=== PATIENT | male | born 1995 | race African-American/Black ===

== ENCOUNTER 2019-08-19 02:39 | Inpatient (IN) | payer OTHER ==
--- NOTE | 2019-08-19 03:04 | PDOC ---
Attending Attestation - Resident Resident Name: Jamie Vaughan - ED Attending Attestation I have performed the following: I have examined & evaluated the patient, The case was reviewed & discussed with the resident, I agree w/resident's findings & plan - HPI HPI: 08/19/19 04:48 see resident hpi - Physicial Exam PE: 08/19/19 05:06 agree with resident exam - Critical Care Time Total Critical Care Time: 70 Critical Care Statement: The care of this patient involved high complexity decision making to prevent further life threatening deterioration of the patient 's condition and/or to evaluate & treat vital organ system(s) failure or risk of failure. - Medical Decision Making 08/19/19 05:06 24-year-old male with altered mental status Labs are consistent with diabetic ketoacidosis with severely elevated blood sugar of greater than 1600 IV fluids, insulin therapy initiated in the emergency department Patient will require ICU admission for further management
[2019-08-19] MEDS ORDERED: SODIUM CHLORIDE 1,000 ML IV STA ×5 (04:22→15:17)
[2019-08-19 04:23] LABS: BASO % 0.2 % (0-2.0); HEMATOCRIT 52.8 % (35.4-49); HEMOGLOBIN 14.5 GM/dL (11.7-16.9); LYMPH % 3.7 % (8-40); MCH 30.9 pg (25.7-33.7); MCHC 27.4 g/dl (32.0-35.9); MEAN CELL VOLUME 112.9 fl (80-96); MEAN PLT VOLUME 12.3 fl (7.5-11.1); MONO % 8.9 % (3.8-10.2); NEUT % 87.2 % (42.8-82.8); PLATELET COUNT 156 K/MM3 (134-434); RBC 4.68 M/mm3 (4.00-5.60); RDW 17.4 % (11.9-15.9); WHITE BLOOD COUNT 17.7 K/mm3 (4.0-10.0)
[2019-08-19 04:26] LABS: ARTERIAL BLD GAS O2 SATURATION 94.5 % (95-98); ARTERIAL BLOOD GAS BASE EXCESS -16.8 meq/l (-2-2); ARTERIAL BLOOD GAS PCO2 33.6 mmHg (35-45); ARTERIAL BLOOD GAS PO2 80.7 mmHg (80-100)
[2019-08-19 04:28] LABS: CARBOXYHEMOGLOBIN 1.5 % (0-2)
--- NOTE | 2019-08-19 04:31 | PDOC ---
History of Present Illness - General Chief Complaint: Syncope/Near Syncope Stated Complaint: SYNCOPE Time Seen by Provider: 08/19/19 03:03 History Source: Family Exam Limitations: Clinical Condition - History of Present Illness Initial Comments: 08/19/19 04:23 Patient is a 24M with history of down's syndrome here today complaining of altered mental status. Patient is unable to give history, but at baseline normally would be able to. Patient's mother at bedside reports that he has been vomiting clear liquids for the past two days, but has not been complaining of abdominal pain. Denies fevers, chills. Denies reports of chest pain and shortness of breath. Patient's mother took him to [facility] this evening after he syncopized while getting out of bed. No sick contacts. Up to date on vaccinations. No prior hospitalizations. Mom reports that his labs were normal and he was discharged after having normal labs and receiving 1L NS. Patient was unable to assist himself from wheelchair to bed upon arrival. Past History - Past Medical History Allergies/Adverse Reactions: Allergies Allergy/AdvReac Type Severity Reaction Status Date / Time No Known Allergies Allergy Verified 08/19/19 03:07 - Psycho Social/Smoking Cessation Hx Smoking History: Never smoked Hx Alcohol Use: No Drug/Substance Use Hx: No Review of Systems - Review of Systems Able to Perform ROS?: No (2/2 clinical condition) *Physical Exam - Vital Signs Last Vital Signs Temp Pulse Resp BP Pulse Ox 98.8 F 111 H 15 116/95 97 08/19/19 02:39 08/19/19 02:39 08/19/19 02:39 08/19/19 02:39 08/19/19 02:39 - Physical Exam Comments: 08/19/19 04:32 GENERAL: Eyes closed, responds to harsh noxious stimulus only, non-communicative , obese HEAD: No signs of trauma, normocephalic, atraumatic EYES: PERRLA, EOMI, sclera anicteric, conjunctiva clear ENT: Auricles normal inspection, dry mucosa NECK: Normal ROM, supple, no reaction with neck flexion LUNGS: No distress, clear to auscultation bilaterally HEART: Tachycardic, regular ABDOMEN: Soft, nontender, normoactive bowel sounds. No guarding, no rebound. No masses EXTREMITIES: Normal inspection, Normal range of motion, no edema. No clubbing or cyanosis. NEUROLOGICAL: Cranial nerves II through XII grossly intact. Moves all extremities to pain SKIN: Warm, Dry, normal turgor, no rashes or lesions noted. ED Treatment Course - LABORATORY CBC & Chemistry Diagram: 08/19/19 04:05 08/19/19 04:05 - ADDITIONAL ORDERS Additional order review: Laboratory Results 08/19/19 04:05 Anticoagulation Therapy No Result Required. O2 Delivery Device No Result Required. Oxygen Flow Rate No Result Required. Vent Mode No Result Required. Vent Rate No Result Required. Mechanical Rate No Result Required. Pressure Support Vent No Result Required. - RADIOLOGY Radiology Studies Ordered: Category Date Time Status HEAD CT WITHOUT CONTRAST [CT] Stat CT Scan 08/19/19 02:58 Ordered CHEST X-RAY PORTABLE* [RAD] Stat Radiology 08/19/19 02:58 Ordered Medical Decision Making - Medical Decision Making 08/19/19 04:42 Patient is 24M with history of Down's Syndrome here today with AMS. Vitals notable for tachycardia. Fingerstick high, suspect DKA and new onset diabetes. Will do broad workup to rule out infectious etiology. 08/19/19 05:44 CBC shows evidence of hemoconcentration, leukocytosis, macrocytosis CMP shows gap, LIYA, Na corrects to ~148, K 6.5, glucose 1600 ABG shows metabolic acidosis Case d/w Dr Marte, patient accepted to ICU but no beds available. Case d/w Dr Clark accepted to medicine. CXR pending. UA/UC pending. Will place adler. EKG shows sinus tachycardia with rate of 120. No st elevations/depressions. Normal axis. No significant t wave abnormalities. Poor baseline in II. Discharge - Discharge Information Problems reviewed: Yes Clinical Impression/Diagnosis: DKA (diabetic ketoacidoses) Condition: Critical - Admission Yes - Follow up/Referral - Patient Discharge Instructions - Post Discharge Activity
[2019-08-19 04:35] LABS: ALLENS TEST POSITIVE
[2019-08-19 04:37] LABS: ARTERIAL BLOOD GAS pH 7.15 (7.35-7.45)
[2019-08-19 04:46] LABS: INR 1.2 (0.83-1.09); PROTHROMBIN TIME (PATIENT) 14.2 SEC (9.7-13.0)
[2019-08-19] MEDS ORDERED: INSULIN REGULAR HUMAN 100 UNITS/ML *VIAL IVPUSH ONE ×3 (04:47→20:03)
[2019-08-19 04:55] LABS: ALBUMIN 3.4 g/dl (3.4-5.0); BILIRUBIN,TOTAL 0.5 mg/dL (0.2-1); BLOOD UREA NITROGEN 87.3 mg/dL (7-18); CREATININE 6.8 mg/dL (0.55-1.3)
[2019-08-19 05:00] LABS: POTASSIUM 6.5 mmol/L (3.5-5.1)
[2019-08-19] MEDS ORDERED: INSULIN REGULAR 100 UNITS in SODIUM CHLORIDE 99 ML IVPB SCH ×2 (05:00→15:22)
--- NOTE | 2019-08-19 05:36 | CONSULT ---
Consultation: REQUESTING PROVIDER: ED team CONSULT REQUEST: We have been asked to medically evaluate this patient for DKA. HISTORY OF PRESENT ILLNESS: This is a 24 y/o gentleman w/ a pmh of downs syndrome who presented this AM with altered mental status. Patient is unable to provide a history, which does not depict his appropriate baseline mental status. Patient's mother per telephone conversation was able to provide a history, that he has been vomiting clear liquids for the past few days, but has not been complaining of abdominal pain. Pt lives with at home with his mother. Denies fevers, chills associated with this nbnb emesis or recent sick contacts. Denies any reports of chest pain, shortness of breath, cough, dizziness, or feeling of the room spinning around him. Patient's mother took him to [facility] this evening after he had syncopized while getting out of bed, per mom all labs were normal and pt was sent home. Patient has not been around any sick contacts and is up to date on vaccinations. Patient was hospitalized for PNA when he was 5, however pt has never been intubated. No meds Allergies- NKDA Surgical Hx- none Fam Hx- DM, HTN- Grandma Social Hx- T: none A- none D- none Medical Hx- Downs syndrome EKG- sinus rythym rate of 120. REVIEW OF SYSTEMS: negative except above in HPI PHYSICAL EXAMINATION Vital Signs - 24 hr 08/19/19 02:39 Temperature 98.8 F Pulse Rate 111 H Respiratory 15 Rate Blood Pressure 116/95 O2 Sat by Pulse 97 Oximetry (%) GENERAL: lethargic, arousable only to noxious stimuli HEAD: Normocephalic, atraumatic EARS, NOSE, THROAT: Dry mucous membranes. LUNGS: Breath sounds equal, clear to auscultation bilaterally. No wheezes, and no crackles. No accessory muscle use. HEART: tachycardic and regular rhythm, normal S1 and S2 without murmur, rub or gallop. ABDOMEN: Soft, nontender, not distended, hyperactive bowel sounds, no guarding, no rebound, no masses. LOWER EXTREMITIES: warm, well-perfused. No calf tenderness. No peripheral edema. NEUROLOGICAL: lethargic SKIN: Warm, dry, decreased skin turgor Laboratory Results - last 24 hr 08/19/19 08/19/19 08/19/19 04:05 04:05 04:05 WBC RBC Hgb Hct MCV MCH MCHC RDW Plt Count MPV Absolute Neuts (auto) Neutrophils % Lymphocytes % Monocytes % Eosinophils % Basophils % Nucleated RBC % PT with INR INR PTT (Actin FS) 31.3 Anticoagulation Therapy No Result Required. Puncture Site Right radial ABG pH 7.15 L* ABG pCO2 at Pt Temp 33.6 L ABG pO2 at Pt Temp 80.7 ABG HCO3 11.3 L ABG O2 Sat (Measured) 94.5 L ABG O2 Content 19.2 ABG Base Excess -16.8 L Moisés Test Positive Carboxyhemoglobin 1.5 Methemoglobin < 1.0 O2 Delivery Device Room air Oxygen Flow Rate No Vent Mode No Result Required. Vent Rate No Result Required. Mechanical Rate No Result Required. Pressure Support Vent No Result Required. Sodium Potassium Chloride Carbon Dioxide Anion Gap BUN Creatinine Est GFR (CKD-EPI)AfAm Est GFR (CKD-EPI)NonAf POC Glucometer Random Glucose Lactic Acid Calcium Total Bilirubin AST ALT Alkaline Phosphatase Creatine Kinase Creatine Kinase Index CK-MB (CK-2) Troponin I Total Protein Albumin Acetaminophen 08/19/19 08/19/19 08/19/19 04:05 04:05 04:05 WBC 17.7 H RBC 4.68 Hgb 14.5 Hct 52.8 H MCV 112.9 H MCH 30.9 MCHC 27.4 L RDW 17.4 H Plt Count 156 MPV 12.3 H Absolute Neuts (auto) 15.5 H Neutrophils % 87.2 H Lymphocytes % 3.7 L Monocytes % 8.9 Eosinophils % 0.0 Basophils % 0.2 Nucleated RBC % 0 PT with INR INR PTT (Actin FS) Anticoagulation Therapy Puncture Site ABG pH ABG pCO2 at Pt Temp ABG pO2 at Pt Temp ABG HCO3 ABG O2 Sat (Measured) ABG O2 Content ABG Base Excess Moisés Test Carboxyhemoglobin Methemoglobin O2 Delivery Device Oxygen Flow Rate Vent Mode Vent Rate Mechanical Rate Pressure Support Vent Sodium 127 L Potassium 6.5 H* Chloride 88 L Carbon Dioxide 13 L Anion Gap 26 H BUN 87.3 H Creatinine 6.8 H Est GFR (CKD-EPI)AfAm 12.14 Est GFR (CKD-EPI)NonAf 10.48 POC Glucometer Random Glucose 1642 H* Lactic Acid 2.6 H* Calcium 8.0 L Total Bilirubin 0.5 AST 33 ALT 51 Alkaline Phosphatase 141 H Creatine Kinase Creatine Kinase Index CK-MB (CK-2) Troponin I Total Protein 8.0 Albumin 3.4 Acetaminophen 08/19/19 08/19/19 08/19/19 04:05 04:05 04:05 WBC RBC Hgb Hct MCV MCH MCHC RDW Plt Count MPV Absolute Neuts (auto) Neutrophils % Lymphocytes % Monocytes % Eosinophils % Basophils % Nucleated RBC % PT with INR 14.20 H INR 1.20 H PTT (Actin FS) Anticoagulation Therapy Puncture Site ABG pH ABG pCO2 at Pt Temp ABG pO2 at Pt Temp ABG HCO3 ABG O2 Sat (Measured) ABG O2 Content ABG Base Excess Moisés Test Carboxyhemoglobin Methemoglobin O2 Delivery Device Oxygen Flow Rate Vent Mode Vent Rate Mechanical Rate Pressure Support Vent Sodium Potassium Chloride Carbon Dioxide Anion Gap BUN Creatinine Est GFR (CKD-EPI)AfAm Est GFR (CKD-EPI)NonAf POC Glucometer Random Glucose Lactic Acid Calcium Total Bilirubin AST ALT Alkaline Phosphatase Creatine Kinase 379 H Creatine Kinase Index 0.5 CK-MB (CK-2) 2.0 Troponin I < 0.02 Total Protein Albumin Acetaminophen <2.0 08/19/19 08/19/19 04:42 05:22 WBC RBC Hgb Hct MCV MCH MCHC RDW Plt Count MPV Absolute Neuts (auto) Neutrophils % Lymphocytes % Monocytes % Eosinophils % Basophils % Nucleated RBC % PT with INR INR PTT (Actin FS) Anticoagulation Therapy Puncture Site ABG pH ABG pCO2 at Pt Temp ABG pO2 at Pt Temp ABG HCO3 ABG O2 Sat (Measured) ABG O2 Content ABG Base Excess Moisés Test Carboxyhemoglobin Methemoglobin O2 Delivery Device Oxygen Flow Rate Vent Mode Vent Rate Mechanical Rate Pressure Support Vent Sodium Potassium Chloride Carbon Dioxide Anion Gap BUN Creatinine Est GFR (CKD-EPI)AfAm Est GFR (CKD-EPI)NonAf POC Glucometer > 600 > 600 Random Glucose Lactic Acid Calcium Total Bilirubin AST ALT Alkaline Phosphatase Creatine Kinase Creatine Kinase Index CK-MB (CK-2) Troponin I Total Protein Albumin Acetaminophen Active Medications Generic Name Dose Route Start Last Admin Trade Name Freq PRN Reason Stop Dose Admin Insulin Human Regular 100 100 mls @ 12.42 mls/hr 08/19/19 05:00 units/ Sodium Chloride IVPB TITR GAUTAM Protocol 0.1 UNITS/KG/HR Sodium Chloride 1,000 mls @ 1,000 mls/hr 08/19/19 04:48 Normal Saline - IV 08/19/19 05:47 ASDIR STA ASSESSMENT/PLAN: This is a 24 y/o gentleman w/ a pmh of downs syndrome who presented this AM with altered mental status. Patient is unable to provide a history, which does not depict his appropriate baseline mental status. Endocrine->DKA 2/2 possible infn vs new onset Type I DM - pt exhibits pH<7.3, HCO3<18, and glucose >250, BOHButyrate pending, elevated AG (26) - Glucose 1642, corrected Na 151, Free H2O deficit- 5.8 L - BGM Q1h for 24 hrs - insulin 0.1 units/kg/hr - K of 6.5 should correct with insulin - no need for HCO3 at this time given pH >7 - will switch to sq once gap has closed - NPO until gap closes and patient is on SQ with an appetite - 1/2 NS at 200cc/hr, given hypernatremia, will switch to D51/2 NS once glucose <250 - bolused with 2L in ED - A1C pending - repeat Lactate for 8 am until <2. - endo consult (Dr. Gonzalez) recs appreciated. Neuro-> syncope -orthostatic vitals - echo - carotid - consider CT head if once DKA resolves AMS does not resolves Cardio-> CK elevated - EKG pending - CK elevated - trops negative X 1, doubt cardiac can repeat if needed Renal-> LIYA likely 2/2 hypovolemia - order serum osms and urine lytes - calculate FeNa - renal sono - Dr. Jurado consulted - adler in place - avoid nephrotoxic agents ID-> Leukocytosis - CXR ordered - no source of infn at this time - BC, UCx ordered, UA pending - afebrile, vitals stable other than tachycardia most likely 2/2 hypovolemia - no abx at this time DVT ppx: Heparin 5K TID Dispo: We will continue to follow the patient. Thank you for this consultative opportunity. Visit type - Emergency Visit Emergency Visit: Yes ED Registration Date: 08/19/19 Care time: The patient presented to the Emergency Department on the above date and was hospitalized for further evaluation of their emergent condition. - New Patient This patient is new to me today: Yes Date on this admission: 08/19/19 - Critical Care Critical Care patient: Yes Total Critical Care Time (in minutes): 40 Critical Care Statement: The care of this patient involved high complexity decision making to prevent further life threatening deterioration of the patient 's condition and/or to evaluate & treat vital organ system(s) failure or risk of failure. ATTENDING PHYSICIAN STATEMENT I saw and evaluated the patient. I reviewed the resident's note and discussed the case with the resident. I agree with the resident's findings and plan as documented. SUBJECTIVE: OBJECTIVE: ASSESSMENT AND PLAN:
--- NOTE | 2019-08-19 06:08 | HP ---
CHIEF COMPLAINT: PCP: Dr. Garner HISTORY OF PRESENT ILLNESS: 24 y/o/m with PMHx of down syndrome here for altered mental status. History obtained from mother as patient unable to provide history secondary to mental status. Patient has had 2 episodes of vomiting, once 3 days ago and once 2 days ago. Patient's mother noticed yesterday that the patient was more drowsy than normal. Yesterday as the patient was getting out of bed he had an unwitnessed fall. His mom heard him yell for help. Patient's mother found him on the floor and he was unable to get up. There was no evidence of incontinence, LOC, or bleeding after the fall. She immediately took him to [facility]. At [facility] she was told that his labs were normal, he was given 1L of fluids and told he was ok. Patient's mom took and cab and brought him to [place]. At his baseline, patient is able to do most of his own normal daily activities and is active. He has normal bowel movements. He has not had any diarrhea, fevers, cough, or other complaints as per the mother. ER course was notable for: (1) Glucose of 1642, ABG with acidemia (2) Patient started on Insulin and admitted to ICU Recent Travel: none PAST MEDICAL HISTORY: down syndrome PAST SURGICAL HISTORY: none Social History: Smoking: unknown Alcohol: unknown Drugs: unknown Allergies No Known Allergies Allergy (Verified 08/19/19 03:07) HOME MEDICATIONS: none REVIEW OF SYSTEMS Patient unable to provide ROS due to mental status. PHYSICAL EXAMINATION Vital Signs - 24 hr 08/19/19 02:39 Temperature 98.8 F Pulse Rate 111 H Respiratory 15 Rate Blood Pressure 116/95 O2 Sat by Pulse 97 Oximetry (%) GENERAL: somnolent, responsive to physical stimuli HEAD: NC/AT EYES: PERRL, pale conjunctiva EARS, NOSE, THROAT: extremely dry mucous membranes, dry cracked tongue. nares patent NECK: supple, no cervical lymphadenopathy LUNGS: limited exam, clear to auscultation bilaterally, no wheezing noted. No accessory muscle use. HEART: Regular rate and rhythm, normal S1 and S2 without murmur, rub or gallop. ABDOMEN: Soft, nontender, not distended, normoactive bowel sounds, no guarding, no rebound UPPER EXTREMITIES: 2+ pulses, warm, well-perfused. No cyanosis. No clubbing. No peripheral edema. LOWER EXTREMITIES: 2+ pulses, warm, well-perfused. No peripheral edema. NEUROLOGICAL: lethargic. normal muscle tone, normal pupillary reflex SKIN: dry, decreased turgor. Warm, no rashes or lesions noted, normal capillary refill. Laboratory Results - last 24 hr 08/19/19 08/19/19 08/19/19 04:05 04:05 04:05 WBC RBC Hgb Hct MCV MCH MCHC RDW Plt Count MPV Absolute Neuts (auto) Neutrophils % Lymphocytes % Monocytes % Eosinophils % Basophils % Nucleated RBC % PT with INR INR PTT (Actin FS) 31.3 Anticoagulation Therapy No Result Required. Puncture Site Right radial ABG pH 7.15 L* ABG pCO2 at Pt Temp 33.6 L ABG pO2 at Pt Temp 80.7 ABG HCO3 11.3 L ABG O2 Sat (Measured) 94.5 L ABG O2 Content 19.2 ABG Base Excess -16.8 L Moisés Test Positive Carboxyhemoglobin 1.5 Methemoglobin < 1.0 O2 Delivery Device Room air Oxygen Flow Rate No Vent Mode No Result Required. Vent Rate No Result Required. Mechanical Rate No Result Required. Pressure Support Vent No Result Required. Sodium Potassium Chloride Carbon Dioxide Anion Gap BUN Creatinine Est GFR (CKD-EPI)AfAm Est GFR (CKD-EPI)NonAf POC Glucometer Random Glucose Lactic Acid Calcium Total Bilirubin AST ALT Alkaline Phosphatase Creatine Kinase Creatine Kinase Index CK-MB (CK-2) Troponin I Total Protein Albumin Acetaminophen 08/19/19 08/19/19 08/19/19 04:05 04:05 04:05 WBC 17.7 H RBC 4.68 Hgb 14.5 Hct 52.8 H MCV 112.9 H MCH 30.9 MCHC 27.4 L RDW 17.4 H Plt Count 156 MPV 12.3 H Absolute Neuts (auto) 15.5 H Neutrophils % 87.2 H Lymphocytes % 3.7 L Monocytes % 8.9 Eosinophils % 0.0 Basophils % 0.2 Nucleated RBC % 0 PT with INR INR PTT (Actin FS) Anticoagulation Therapy Puncture Site ABG pH ABG pCO2 at Pt Temp ABG pO2 at Pt Temp ABG HCO3 ABG O2 Sat (Measured) ABG O2 Content ABG Base Excess Moisés Test Carboxyhemoglobin Methemoglobin O2 Delivery Device Oxygen Flow Rate Vent Mode Vent Rate Mechanical Rate Pressure Support Vent Sodium 127 L Potassium 6.5 H* Chloride 88 L Carbon Dioxide 13 L Anion Gap 26 H BUN 87.3 H Creatinine 6.8 H Est GFR (CKD-EPI)AfAm 12.14 Est GFR (CKD-EPI)NonAf 10.48 POC Glucometer Random Glucose 1642 H* Lactic Acid 2.6 H* Calcium 8.0 L Total Bilirubin 0.5 AST 33 ALT 51 Alkaline Phosphatase 141 H Creatine Kinase Creatine Kinase Index CK-MB (CK-2) Troponin I Total Protein 8.0 Albumin 3.4 Acetaminophen 08/19/19 08/19/19 08/19/19 04:05 04:05 04:05 WBC RBC Hgb Hct MCV MCH MCHC RDW Plt Count MPV Absolute Neuts (auto) Neutrophils % Lymphocytes % Monocytes % Eosinophils % Basophils % Nucleated RBC % PT with INR 14.20 H INR 1.20 H PTT (Actin FS) Anticoagulation Therapy Puncture Site ABG pH ABG pCO2 at Pt Temp ABG pO2 at Pt Temp ABG HCO3 ABG O2 Sat (Measured) ABG O2 Content ABG Base Excess Moisés Test Carboxyhemoglobin Methemoglobin O2 Delivery Device Oxygen Flow Rate Vent Mode Vent Rate Mechanical Rate Pressure Support Vent Sodium Potassium Chloride Carbon Dioxide Anion Gap BUN Creatinine Est GFR (CKD-EPI)AfAm Est GFR (CKD-EPI)NonAf POC Glucometer Random Glucose Lactic Acid Calcium Total Bilirubin AST ALT Alkaline Phosphatase Creatine Kinase 379 H Creatine Kinase Index 0.5 CK-MB (CK-2) 2.0 Troponin I < 0.02 Total Protein Albumin Acetaminophen <2.0 08/19/19 08/19/19 04:42 05:22 WBC RBC Hgb Hct MCV MCH MCHC RDW Plt Count MPV Absolute Neuts (auto) Neutrophils % Lymphocytes % Monocytes % Eosinophils % Basophils % Nucleated RBC % PT with INR INR PTT (Actin FS) Anticoagulation Therapy Puncture Site ABG pH ABG pCO2 at Pt Temp ABG pO2 at Pt Temp ABG HCO3 ABG O2 Sat (Measured) ABG O2 Content ABG Base Excess Moisés Test Carboxyhemoglobin Methemoglobin O2 Delivery Device Oxygen Flow Rate Vent Mode Vent Rate Mechanical Rate Pressure Support Vent Sodium Potassium Chloride Carbon Dioxide Anion Gap BUN Creatinine Est GFR (CKD-EPI)AfAm Est GFR (CKD-EPI)NonAf POC Glucometer > 600 > 600 Random Glucose Lactic Acid Calcium Total Bilirubin AST ALT Alkaline Phosphatase Creatine Kinase Creatine Kinase Index CK-MB (CK-2) Troponin I Total Protein Albumin Acetaminophen ASSESSMENT/PLAN: 24 y/o/m with PMHx of down syndrome here for altered mental status. 1)DKA - secondary to possible infection vs. new onset diabetes -ABG with pH 7.13, anion gap 26, bicarb 13, glucose at 1642 -received 10 units insulin in ER, started on insulin drip. Will bridge to long acting insulin once anion gap closes -BGM Q1hr -BMP Q3hr -A1c pending -trend lactic acid -Endocrine consulted, Dr. Gonzalez 2)Hyperkalemia - 6.5 on initial labs -Will correct with insulin -Monitor with BMPs, repleat as needed 3)Hypernatremia - correct sodium is 151 -IVF 4)CKD vs LIYA - no baseline for patient, no significant known medical history -IVF -Renal U/S -urine electrolytes -Carey Catheter placement -Nephro consulted, Dr. Jurado 5)Leukocytosis - WBC at 17.7 -no source of infection at this time -CXR pending -follow Blood cultures, urine culture, UA -likely secondary to hypervolemia, patient afebrile at this time 6)Prophylaxis -Heparin 7)FEN -1/2 NS 8)Disposition -admitted to ICU Visit type - Emergency Visit Emergency Visit: Yes ED Registration Date: 08/19/19 Care time: The patient presented to the Emergency Department on the above date and was hospitalized for further evaluation of their emergent condition. - New Patient This patient is new to me today: Yes Date on this admission: 08/19/19 - Critical Care Critical Care patient: Yes Total Critical Care Time (in minutes): 40 Critical Care Statement: The care of this patient involved high complexity decision making to prevent further life threatening deterioration of the patient 's condition and/or to evaluate & treat vital organ system(s) failure or risk of failure. ATTENDING PHYSICIAN STATEMENT I saw and evaluated the patient. I reviewed the resident's note and discussed the case with the resident. I agree with the resident's findings and plan as documented. SUBJECTIVE: OBJECTIVE: ASSESSMENT AND PLAN:
[2019-08-19] MEDS ORDERED: SODIUM CHLORIDE 1,000 ML IV SCH ×3 (06:15→09:15)
--- NOTE | 2019-08-19 06:35 | PN ---
Teaching Attending Note Name of Resident: Kilo Clark ATTENDING PHYSICIAN STATEMENT I saw and evaluated the patient. I reviewed the resident's note and discussed the case with the resident. I agree with the resident's findings and plan as documented. SUBJECTIVE: 24M with history of down's syndrome here today brought in by mother because of altered mental status. Patient is unable to give history, but at baseline normally would be able to. As per mother- patient had episode of vomiting, denied fevers, chills, chest pain, or shortness of breath. Patient was taken to [facility] prior but likely they signed out AMA from there. OBJECTIVE: Last Vital Signs Temp Pulse Resp BP Pulse Ox 98.8 F 111 H 15 116/95 97 08/19/19 02:39 08/19/19 02:39 08/19/19 02:39 08/19/19 02:39 08/19/19 02:39 gen -obtunded, obese heent -dry oral mucosa chest -b/l breath sounds cv-s1+s2+tachycardia abdomen -obese, nt, bs+ skin - dry, no rashes Abnormal Lab Results 08/19/19 08/19/19 08/19/19 04:05 04:05 04:05 WBC 17.7 H Hct 52.8 H MCV 112.9 H MCHC 27.4 L RDW 17.4 H MPV 12.3 H Absolute Neuts (auto) 15.5 H Neutrophils % 87.2 H Lymphocytes % 3.7 L PT with INR INR ABG pH 7.15 L* ABG pCO2 at Pt Temp 33.6 L ABG HCO3 11.3 L ABG O2 Sat (Measured) 94.5 L ABG Base Excess -16.8 L Sodium 127 L Potassium 6.5 H* Chloride 88 L Carbon Dioxide 13 L Anion Gap 26 H BUN 87.3 H Creatinine 6.8 H Random Glucose 1642 H* Lactic Acid Calcium 8.0 L Alkaline Phosphatase 141 H Creatine Kinase 08/19/19 08/19/19 08/19/19 04:05 04:05 04:05 WBC Hct MCV MCHC RDW MPV Absolute Neuts (auto) Neutrophils % Lymphocytes % PT with INR 14.20 H INR 1.20 H ABG pH ABG pCO2 at Pt Temp ABG HCO3 ABG O2 Sat (Measured) ABG Base Excess Sodium Potassium Chloride Carbon Dioxide Anion Gap BUN Creatinine Random Glucose Lactic Acid 2.6 H* Calcium Alkaline Phosphatase Creatine Kinase 379 H ekg showed sinus tachy ASSESSMENT AND PLAN: Critically ill 24yo man with Down Syndrome, with DKA, severe hyperglycemia, new onset DM, HAGMA, lactic acidosis, acute renal failure vs CKD, leukocytosis, AMS - likely metabolic encepahlopathy from underlying DKA. Renal failure most likely prerenal in setting of severe dehydration. DKA may have been precipitated by infection. DM may have been undetected for prolonged period of time. Pseudohyponatremia secondary to dka - corrected Na is 151 Meq/L, free water deficit around 5L. S/p 2L NS, 10 units IV insulin in ER. -admit to icu -npo -insulin drip, monitor bgm q1 hr -monitor electrolytes -na, k, mg, phos closely, replete prn -IV fluid hydration - 1/2 for hyponatremia -monitor AG, when close, bridge with sc lantus -adler catheter -monitor urine output closely -renal consult -UA -urine culture -urine na, cr, calculate urine FENA -i/o -daily weight -renal u/s -avoid nephrotoxins -repeat lactate -send a1c -cxr -blood cx x2 -dvt ppx -heparin 40 mins spent on this critically ill patient
[2019-08-19] MEDS ORDERED: SODIUM CHLORIDE 0.45% 1,000 ML IV SCH (06:45)
[2019-08-19] MEDS ORDERED: HEPARIN NA (PORCINE) 5,000 UNITS/ML 1ML VIAL ONE (07:01)
[2019-08-19] MEDS: HEPARIN NA (PORCINE) 5,000 UNITS/ML 1ML VIAL SQ SCH ×2 (07:08→18:27)
[2019-08-19 07:23] LABS: CARBOXYHEMOGLOBIN 1.8 % (0-2)
[2019-08-19 07:59] LABS: ALLENS TEST POSITIVE; ARTERIAL BLD GAS O2 SATURATION 92.4 % (95-98); ARTERIAL BLOOD GAS BASE EXCESS -16.9 meq/l (-2-2); ARTERIAL BLOOD GAS PO2 71.7 mmHg (80-100)
[2019-08-19 08:01] LABS: ARTERIAL BLOOD GAS pH 7.13 (7.35-7.45)
[2019-08-19 09:06] LABS: EPI CELLS 4.3 /HPF (0-5/HPF); HYALINE CASTS 4 /lpf (0-8); URINE APPEARANCE CLOUDY; URINE BILIRUBIN NEGATIVE (NEGATIVE); URINE COLOR YELLOW; URINE GLUCOSE (UA) 3+ (NEGATIVE); URINE KETONE TRACE (NEGATIVE); URINE LEUK ESTERASE NEGATIVE (NEGATIVE); URINE NITRITE NEGATIVE (NEGATIVE); URINE PROTEIN 1+ (NEGATIVE); URINE UROBILINOGEN 0.2 mg/dL (0.2-1.0); URINE WBC 3 /hpf (0-5)
[2019-08-19 09:35] LABS: URINE RBC 0-2 /hpf (0-4)
[2019-08-19 09:44] LABS: MAGNESIUM 3.4 mg/dL (1.8-2.4); PHOSPHOROUS 3.5 mg/dL (2.5-4.9)
[2019-08-19 09:45] LABS: ANION GAP 23 MMOL/L (8-16); BLOOD UREA NITROGEN 87.9 mg/dL (7-18); CALCIUM 7.7 mg/dL (8.5-10.1); CHLORIDE 98 mmol/L (98-107); CO2 15 mmol/L (21-32); POTASSIUM 4.6 mmol/L (3.5-5.1); SODIUM 136 mmol/L (136-145)
[2019-08-19 09:49] LABS: GLUCOSE,RANDOM 1293 mg/dL (74-106)
[2019-08-19] MEDS ORDERED: PIPERACILLIN/TAZOB 3.375 GM 3.375 GM in DEXTROSE 5%-WATER - 50 ML IVPB ONE (10:08)
[2019-08-19] MEDS ORDERED: SODIUM CHLORIDE 0.9%/KCL 20 MEQ/1,000 ML INFUS.BAG IV SCH (10:15)
[2019-08-19] MEDS ORDERED: KCL 10 MEQ IVPB 10 MEQ/100 ML INFUS.BAG IVPB SCH (10:15)
[2019-08-19 10:38] LABS: ARTERIAL BLD GAS O2 SATURATION 85.7 % (95-98); ARTERIAL BLOOD GAS BASE EXCESS -10.6 meq/l (-2-2); ARTERIAL BLOOD GAS PCO2 41.6 mmHg (35-45); ARTERIAL BLOOD GAS PO2 50.8 mmHg (80-100); ARTERIAL BLOOD GAS pH 7.22 (7.35-7.45)
[2019-08-19 10:39] LABS: ALLENS TEST POSITIVE
[2019-08-19 10:56] LABS: BLOOD UREA NITROGEN 87.1 mg/dL (7-18); CALCIUM 7.6 mg/dL (8.5-10.1); CREATININE 7.3 mg/dL (0.55-1.3); POTASSIUM 4.3 mmol/L (3.5-5.1)
[2019-08-19 11:01] LABS: ANISOCYTOSIS 0; MACROCYTOSIS 1+; PLATELET ESTIMATE DECREASED
--- NOTE | 2019-08-19 11:37 | PN ---
Teaching Attending Note Name of Resident: Aquiles Malik ATTENDING PHYSICIAN STATEMENT I saw and evaluated the patient. I reviewed the resident's note and discussed the case with the resident. I agree with the resident's findings and plan as documented. SUBJECTIVE: Patient seen and examined in the ER. Remains on IV Insulin drip. Blood glucose still severely elevated but improving. Unable to provide a history. Tachypneic on 100% NRBM. Hypotensive. CXR: No acute pathology Intake & Output 08/16/19 08/17/19 08/18/19 08/19/19 23:59 23:59 23:59 23:59 Output Total 300 Balance -300 Weight 274 lb Last Vital Signs Temp Pulse Resp BP Pulse Ox 98.2 F 120 H 30 H 81/37 L 88 L 08/19/19 10:27 08/19/19 11:16 08/19/19 11:16 08/19/19 11:16 08/19/19 11:16 Active Medications Chlorhexidine Gluconate (Hibiclens For Decolonization -) 1 applic TP HS GAUTAM Heparin Sodium (Porcine) (Heparin -) 5,000 unit SQ TID GAUTAM Last Admin: 08/19/19 07:08 Dose: 5,000 unit Insulin Human Regular 100 (units/ Sodium Chloride) 100 mls @ 12.42 mls/hr IVPB TITR GAUTAM; Protocol Last Admin: 08/19/19 06:22 Dose: 0.1 units/kg/hr, 12.42 mls/hr Potassium Chloride/Sodium Chloride (Ns+20 Meq Kcl -) 20 meq in 1,000 mls @ 250 mls/hr IV ASDIR GAUTAM Stop: 08/20/19 14:14 Last Admin: 08/19/19 11:01 Dose: 250 mls/hr Sodium Chloride (Normal Saline -) 1,000 mls @ 1,000 mls/hr IV ASDIR STA Stop: 08/19/19 12:08 Mupirocin (Bactroban Ointment (For Decolonization) -) 1 applic NS BID GAUTAM Stop: 08/24/19 09:59 GENERAL: lethargic, tachypneic HEAD: atraumatic EARS, NOSE, THROAT: Dry mucous membranes. LUNGS: Tachypneic. No wheezes, and no crackles. No accessory muscle use. HEART: S1S2, tachycardia,no murmur, rub or gallop. ABDOMEN: Soft, nontender, not distended, hyperactive bowel sounds, no guarding, no rebound, no masses. LOWER EXTREMITIES: warm, well-perfused. No calf tenderness. No peripheral edema. NEUROLOGICAL: lethargic SKIN: Warm, dry, decreased skin turgor Laboratory Results - last 24 hr 08/19/19 08/19/19 08/19/19 04:05 04:05 04:05 WBC RBC Hgb Hct MCV MCH MCHC RDW Plt Count MPV Absolute Neuts (auto) Neutrophils % Lymphocytes % Monocytes % Eosinophils % Basophils % Nucleated RBC % PT with INR INR PTT (Actin FS) 31.3 Anticoagulation Therapy No Result Required. Puncture Site Right radial ABG pH 7.15 L* ABG pCO2 at Pt Temp 33.6 L ABG pO2 at Pt Temp 80.7 ABG HCO3 11.3 L ABG O2 Sat (Measured) 94.5 L ABG O2 Content 19.2 ABG Base Excess -16.8 L Moisés Test Positive Carboxyhemoglobin 1.5 Methemoglobin < 1.0 O2 Delivery Device Room air Oxygen Flow Rate No Vent Mode No Result Required. Vent Rate No Result Required. Mechanical Rate No Result Required. Pressure Support Vent No Result Required. Sodium Potassium Chloride Carbon Dioxide Anion Gap BUN Creatinine Est GFR (CKD-EPI)AfAm Est GFR (CKD-EPI)NonAf POC Glucometer Random Glucose Lactic Acid Calcium Total Bilirubin AST ALT Alkaline Phosphatase Creatine Kinase Creatine Kinase Index CK-MB (CK-2) Troponin I Total Protein Albumin Acetaminophen 08/19/19 08/19/19 08/19/19 04:05 04:05 04:05 WBC 17.7 H RBC 4.68 Hgb 14.5 Hct 52.8 H MCV 112.9 H MCH 30.9 MCHC 27.4 L RDW 17.4 H Plt Count 156 MPV 12.3 H Absolute Neuts (auto) 15.5 H Neutrophils % 87.2 H Lymphocytes % 3.7 L Monocytes % 8.9 Eosinophils % 0.0 Basophils % 0.2 Nucleated RBC % 0 PT with INR INR PTT (Actin FS) Anticoagulation Therapy Puncture Site ABG pH ABG pCO2 at Pt Temp ABG pO2 at Pt Temp ABG HCO3 ABG O2 Sat (Measured) ABG O2 Content ABG Base Excess Moisés Test Carboxyhemoglobin Methemoglobin O2 Delivery Device Oxygen Flow Rate Vent Mode Vent Rate Mechanical Rate Pressure Support Vent Sodium 127 L Potassium 6.5 H* Chloride 88 L Carbon Dioxide 13 L Anion Gap 26 H BUN 87.3 H Creatinine 6.8 H Est GFR (CKD-EPI)AfAm 12.14 Est GFR (CKD-EPI)NonAf 10.48 POC Glucometer Random Glucose 1642 H* Lactic Acid 2.6 H* Calcium 8.0 L Total Bilirubin 0.5 AST 33 ALT 51 Alkaline Phosphatase 141 H Creatine Kinase Creatine Kinase Index CK-MB (CK-2) Troponin I Total Protein 8.0 Albumin 3.4 Acetaminophen 08/19/19 08/19/19 08/19/19 04:05 04:05 04:05 WBC RBC Hgb Hct MCV MCH MCHC RDW Plt Count MPV Absolute Neuts (auto) Neutrophils % Lymphocytes % Monocytes % Eosinophils % Basophils % Nucleated RBC % PT with INR 14.20 H INR 1.20 H PTT (Actin FS) Anticoagulation Therapy Puncture Site ABG pH ABG pCO2 at Pt Temp ABG pO2 at Pt Temp ABG HCO3 ABG O2 Sat (Measured) ABG O2 Content ABG Base Excess Moisés Test Carboxyhemoglobin Methemoglobin O2 Delivery Device Oxygen Flow Rate Vent Mode Vent Rate Mechanical Rate Pressure Support Vent Sodium Potassium Chloride Carbon Dioxide Anion Gap BUN Creatinine Est GFR (CKD-EPI)AfAm Est GFR (CKD-EPI)NonAf POC Glucometer Random Glucose Lactic Acid Calcium Total Bilirubin AST ALT Alkaline Phosphatase Creatine Kinase 379 H Creatine Kinase Index 0.5 CK-MB (CK-2) 2.0 Troponin I < 0.02 Total Protein Albumin Acetaminophen <2.0 08/19/19 08/19/19 04:42 05:22 WBC RBC Hgb Hct MCV MCH MCHC RDW Plt Count MPV Absolute Neuts (auto) Neutrophils % Lymphocytes % Monocytes % Eosinophils % Basophils % Nucleated RBC % PT with INR INR PTT (Actin FS) Anticoagulation Therapy Puncture Site ABG pH ABG pCO2 at Pt Temp ABG pO2 at Pt Temp ABG HCO3 ABG O2 Sat (Measured) ABG O2 Content ABG Base Excess Moisés Test Carboxyhemoglobin Methemoglobin O2 Delivery Device Oxygen Flow Rate Vent Mode Vent Rate Mechanical Rate Pressure Support Vent Sodium Potassium Chloride Carbon Dioxide Anion Gap BUN Creatinine Est GFR (CKD-EPI)AfAm Est GFR (CKD-EPI)NonAf POC Glucometer > 600 > 600 Random Glucose Lactic Acid Calcium Total Bilirubin AST ALT Alkaline Phosphatase Creatine Kinase Creatine Kinase Index CK-MB (CK-2) Troponin I Total Protein Albumin Acetaminophen ASSESSMENT/PLAN: Severe DKA Severe electrolyte derangement ARF (unknown if previous history of CKD) Downs syndrome Elevated CPK Do not clinically or radiographically suspect PNA Leukocytosis IVF Correct electrolyte imbalance Will need central access for possible pressors. Strict I & O Garland-culture Broad empiric ABX coverage Renal evaluation ID evaluation Follow lactic acid VTE prophylaxis Requires ICU monitoring Dr Lozada Critical care time spent in reviewing chart, evaluating patient and formulating plan - 36 minutes.
[2019-08-19] MEDS ORDERED: VANCOMYCIN 1,000 MG in DEXTROSE 5%-WATER - 250 ML IVPB ONE (11:42)
[2019-08-19] MEDS ORDERED: RAPID SEQUENCE INTUBATION KIT NR ONE ×2 (12:02→12:36)
[2019-08-19 12:03] LABS: EPI CELLS 3.6 /HPF (0-5/HPF); HYALINE CASTS 4 /lpf (0-8); URINE APPEARANCE CLOUDY; URINE BACTERIA 41.1 /hpf (NEGATIVE); URINE BILIRUBIN NEGATIVE (NEGATIVE); URINE COLOR YELLOW; URINE GLUCOSE (UA) 3+ (NEGATIVE); URINE KETONE TRACE (NEGATIVE); URINE LEUK ESTERASE NEGATIVE (NEGATIVE); URINE NITRITE NEGATIVE (NEGATIVE); URINE PROTEIN 1+ (NEGATIVE); URINE UROBILINOGEN 0.2 mg/dL (0.2-1.0); URINE WBC 3 /hpf (0-5)
--- NOTE | 2019-08-19 12:04 | EKG ---
Test Reason : Blood Pressure : / mmHG Vent. Rate : 120 BPM Atrial Rate : 120 BPM P-R Int : 126 ms QRS Dur : 074 ms QT Int : 324 ms P-R-T Axes : 029 025 007 degrees QTc Int : 457 ms SINUS TACHYCARDIA OTHERWISE NORMAL ECG NO PREVIOUS ECGS AVAILABLE Confirmed by Torsten Pedroza ([id number]) on 08/19/2019 12:04:43 PM Referred By: Confirmed By:Torsten Pedroza
--- NOTE | 2019-08-19 12:07 | PN ---
Progress Note, Physician Chief Complaint: pt desat to 80 and he was put on BIPAP Blood pressure drop to 90/45 and not responding to fluids femoral line will be placed by ED team and pt will be intubated due to AMS and to protect the air ways start on pressors levofed and vasopressin maintain BP MAP > 65 Main O2 sat >95 % start on Vanc/zosyn , consult ID monitor in ICU BP monitor , puls oxy repeat abg 2 hours after intubation - Current Medication List Current Medications: Active Medications Chlorhexidine Gluconate (Hibiclens For Decolonization -) 1 applic TP HS GAUTAM Heparin Sodium (Porcine) (Heparin -) 5,000 unit SQ TID GAUTAM Last Admin: 08/19/19 07:08 Dose: 5,000 unit Insulin Human Regular 100 (units/ Sodium Chloride) 100 mls @ 12.42 mls/hr IVPB TITR GAUTAM; Protocol Last Admin: 08/19/19 06:22 Dose: 0.1 units/kg/hr, 12.42 mls/hr Potassium Chloride/Sodium Chloride (Ns+20 Meq Kcl -) 20 meq in 1,000 mls @ 250 mls/hr IV ASDIR GAUTAM Stop: 08/20/19 14:14 Last Admin: 08/19/19 11:01 Dose: 250 mls/hr Sodium Chloride (Normal Saline -) 1,000 mls @ 1,000 mls/hr IV ASDIR STA Stop: 08/19/19 12:08 Vancomycin HCl 1,000 mg/ (Dextrose) 250 mls @ 166.667 mls/hr IVPB ONCE ONE; Protocol Stop: 08/19/19 13:11 Piperacillin Sod/Tazobactam (Sod 3.375 gm/ Dextrose) 50 mls @ 100 mls/hr IVPB Q8H-IV GAUTAM; Protocol Norepinephrine Bitartrate 4, (000 mcg/ Dextrose) 500 mls @ 37.5 mls/hr IV TITR GAUTAM; Protocol Mupirocin (Bactroban Ointment (For Decolonization) -) 1 applic NS BID GAUTAM Stop: 08/24/19 09:59 - Objective Vital Signs: Vital Signs Temperature 98.2 F 08/19/19 10:27 Pulse Rate 120 H 08/19/19 11:16 Respiratory Rate 30 H 08/19/19 11:16 Blood Pressure 81/37 L 08/19/19 11:16 O2 Sat by Pulse Oximetry (%) 88 L 08/19/19 11:16 Labs: CBC, BMP 08/19/19 04:05 08/19/19 10:06 INR, PTT INR 1.20 (0.83-1.09) H 08/19/19 04:05
[2019-08-19] MEDS: NOREPINEPHRINE BITARTRATE 4,000 MCG in DEXTROSE 5%-WATER - 496 ML IV SCH ×2 (12:30→12:33)
[2019-08-19 12:31] LABS: COCAINE, UR NEGATIVE ng/ml (CUTOFF=300); METHADONE, UR NEGATIVE ng/ml (CUTOFF=300); OPIATES, URI NEGATIVE ng/ml (CUTOFF=300); PHENCYCLIDINE,URINE NEGATIVE ng/ml (CUTOFF=25); URINE AMPHETAMINES NEGATIVE ng/ml (CUTOFF=500); URINE BARBITURATES NEGATIVE ng/ml (CUTOFF=200); URINE BENZODIAZEPINES NEGATIVE ng/ml (CUTOFF=200)
[2019-08-19] MEDS ORDERED: MIDAZOLAM IN 0.9 % SOD.CHLORID 100 MG/100 ML PLAST..BAG IVPB SCH (12:45)
[2019-08-19] MEDS ORDERED: SUCCINYLCHOLINE CHLORIDE 200 MG/10 ML VIAL IVPUSH ONE ×2 (12:52)
[2019-08-19] MEDS ORDERED: SODIUM BICARBONATE 8.4% 50 MEQ/50 ML DISP.SYRIN IVPUSH ONE (13:02)
--- NOTE | 2019-08-19 13:06 | PDOC ---
*Physical Exam - Vital Signs Last Vital Signs Temp Pulse Resp BP Pulse Ox 98.2 F 120 H 30 H 81/37 L 88 L 08/19/19 10:27 08/19/19 11:16 08/19/19 11:16 08/19/19 11:16 08/19/19 11:16 - Physical Exam General Appearance: Yes: Other (morbidly obese) Cardiovascular: positive: Tachycardia Repeat PE for Septic Shock - Vital Signs Vital Signs: Vital Signs Temperature 98.2 F 08/19/19 10:27 Pulse Rate 123 H 08/19/19 14:40 Respiratory Rate 25 H 08/19/19 14:40 Blood Pressure 69/49 L 08/19/19 14:40 O2 Sat by Pulse Oximetry (%) 85 L 08/19/19 14:40 I have reviewed the most recent vital signs: Yes - PE CV for Spetic Shock: Other (tachy) Lungs: Crackles Vascular: Left Radial: 1+, Right Radial: 1+, Left Doralis Pedis: 1+, Right Dorsalis Pedis: 1+ Capillary Refill: <3 seconds Skin exam: Pale ED Treatment Course - LABORATORY CBC & Chemistry Diagram: 08/21/19 01:30 08/21/19 01:30 - ADDITIONAL ORDERS Additional order review: Laboratory Results 08/19/19 08/19/19 08/19/19 05:22 04:42 04:05 PT with INR INR PTT (Actin FS) Anticoagulation Therapy Puncture Site ABG pH ABG pCO2 at Pt Temp ABG pO2 at Pt Temp ABG HCO3 ABG O2 Sat (Measured) ABG O2 Content ABG Base Excess Moisés Test Carboxyhemoglobin Methemoglobin O2 Delivery Device Oxygen Flow Rate Vent Mode Vent Rate Mechanical Rate Pressure Support Vent Sodium Potassium Chloride Carbon Dioxide Anion Gap BUN Creatinine Est GFR (CKD-EPI)AfAm Est GFR (CKD-EPI)NonAf POC Glucometer > 600 > 600 Random Glucose Lactic Acid Calcium Total Bilirubin AST ALT Alkaline Phosphatase Creatine Kinase 379 H Creatine Kinase Index 0.5 CK-MB (CK-2) 2.0 Troponin I < 0.02 Total Protein Albumin Acetaminophen 08/19/19 08/19/19 08/19/19 04:05 04:05 04:05 PT with INR 14.20 H INR 1.20 H PTT (Actin FS) Anticoagulation Therapy Puncture Site ABG pH ABG pCO2 at Pt Temp ABG pO2 at Pt Temp ABG HCO3 ABG O2 Sat (Measured) ABG O2 Content ABG Base Excess Moisés Test Carboxyhemoglobin Methemoglobin O2 Delivery Device Oxygen Flow Rate Vent Mode Vent Rate Mechanical Rate Pressure Support Vent Sodium Potassium Chloride Carbon Dioxide Anion Gap BUN Creatinine Est GFR (CKD-EPI)AfAm Est GFR (CKD-EPI)NonAf POC Glucometer Random Glucose Lactic Acid 2.6 H* Calcium Total Bilirubin AST ALT Alkaline Phosphatase Creatine Kinase Creatine Kinase Index CK-MB (CK-2) Troponin I Total Protein Albumin Acetaminophen <2.0 08/19/19 08/19/19 08/19/19 04:05 04:05 04:05 PT with INR INR PTT (Actin FS) 31.3 Anticoagulation Therapy Puncture Site ABG pH ABG pCO2 at Pt Temp ABG pO2 at Pt Temp ABG HCO3 ABG O2 Sat (Measured) ABG O2 Content ABG Base Excess Moisés Test Carboxyhemoglobin 1.5 Methemoglobin < 1.0 O2 Delivery Device Oxygen Flow Rate Vent Mode Vent Rate Mechanical Rate Pressure Support Vent Sodium 127 L Potassium 6.5 H* Chloride 88 L Carbon Dioxide 13 L Anion Gap 26 H BUN 87.3 H Creatinine 6.8 H Est GFR (CKD-EPI)AfAm 12.14 Est GFR (CKD-EPI)NonAf 10.48 POC Glucometer Random Glucose 1642 H* Lactic Acid Calcium 8.0 L Total Bilirubin 0.5 AST 33 ALT 51 Alkaline Phosphatase 141 H Creatine Kinase Creatine Kinase Index CK-MB (CK-2) Troponin I Total Protein 8.0 Albumin 3.4 Acetaminophen 08/19/19 04:05 PT with INR INR PTT (Actin FS) Anticoagulation Therapy No Result Required. Puncture Site Right radial ABG pH 7.15 L* ABG pCO2 at Pt Temp 33.6 L ABG pO2 at Pt Temp 80.7 ABG HCO3 11.3 L ABG O2 Sat (Measured) 94.5 L ABG O2 Content 19.2 ABG Base Excess -16.8 L Moisés Test Positive Carboxyhemoglobin Methemoglobin O2 Delivery Device Room air Oxygen Flow Rate No Vent Mode No Result Required. Vent Rate No Result Required. Mechanical Rate No Result Required. Pressure Support Vent No Result Required. Sodium Potassium Chloride Carbon Dioxide Anion Gap BUN Creatinine Est GFR (CKD-EPI)AfAm Est GFR (CKD-EPI)NonAf POC Glucometer Random Glucose Lactic Acid Calcium Total Bilirubin AST ALT Alkaline Phosphatase Creatine Kinase Creatine Kinase Index CK-MB (CK-2) Troponin I Total Protein Albumin Acetaminophen 08/19/19 08/19/19 08/19/19 05:22 04:42 04:05 RBC 4.68 MCV 112.9 H MCHC 27.4 L RDW 17.4 H MPV 12.3 H Neutrophils % 87.2 H Lymphocytes % 3.7 L Monocytes % 8.9 Eosinophils % 0.0 Basophils % 0.2 POC Glucometer > 600 > 600 - Medications Given in the ED: ED Medications Discontinued Medications Generic Name Dose Route Start Last Admin Trade Name Freq PRN Reason Stop Dose Admin Sodium Chloride 1,000 mls @ 1,000 mls/hr 08/19/19 04:22 08/19/19 05:28 Normal Saline - IV 08/19/19 05:21 1,000 mls/hr ASDIR STA Administration Sodium Chloride 1,000 mls @ 1,000 mls/hr 08/19/19 04:48 08/19/19 05:50 Normal Saline - IV 08/19/19 05:47 1,000 mls/hr ASDIR STA Administration Sodium Chloride 1,000 mls @ 200 mls/hr 08/19/19 06:15 08/19/19 07:12 Normal Saline - IV Not Given ASDIR GAUTAM Sodium Chloride 1,000 mls @ 200 mls/hr 08/19/19 06:45 08/19/19 07:08 1/2 Normal Saline IV 200 mls/hr ASDIR GAUTAM Administration Sodium Chloride 1,000 mls @ 1,000 mls/hr 08/19/19 08:15 08/19/19 08:15 Normal Saline - IV 1,000 mls/hr ASDIR GAUTAM Administration Sodium Chloride 1,000 mls @ 200 mls/hr 08/19/19 09:15 08/19/19 10:48 Normal Saline - IV Not Given ASDIR GAUTAM Potassium Chloride 10 meq in 100 mls @ 100 mls/hr 08/19/19 10:15 08/19/19 10: 48 Potassium Chloride 10 Meq Premix Ivpb - IVPB 08/19/19 12:14 Not Given Q60M GAUTAM Piperacillin Sod/Tazobactam 50 mls @ 100 mls/hr 08/19/19 10:08 08/19/19 10:48 Sod 3.375 gm/ Dextrose IVPB 08/19/19 10:37 100 mls/hr ONCE ONE Administration Protocol Insulin Human Regular 10 units 08/19/19 04:47 08/19/19 05:29 Novolin R Vial *For Ivpush Or Iv Drip Only* IVPUSH 08/19/19 04:48 10 units ONCE ONE Administration Medical Decision Making - Critical Care Time Total Critical Care Time (minutes): 95 Critical Care Statement: The care of this patient involved high complexity decision making to prevent further life threatening deterioration of the patient 's condition and/or to evaluate & treat vital organ system(s) failure or risk of failure. - Medical Decision Making 08/19/19 15:00 24 years old with past medical history significant for Down syndrome presents to the emergency department with altered mental status found to be in DKA Patient admitted to the ICU I was called to the bedside secondary to worsening hypoxia Respiratory paged patient placed on BiPAP subsequently patient's blood pressure began to drop PEEP was decreased on BiPAP settings but hypotension persisted decision made to place a femoral line. Secondary to underlying hypovolemia patient's internal jugular very compressible not safe to place internal jugular central line Decision made to place sterile femoral line Femoral line placed, Norepi ordered after femoral line was placed patient began to bradycardia down, then no pulse was felt CPR started immediately 1 dose epinephrine, 1 amp bicarb given, patient bagged with improvement in oxygen and patient regained pulse Patient began to vomit/aspirate aggressively suctioned and intubated using direct laryngoscopy confirmed by CO2 auscultation and x-ray Patient started on norepinephrine, continue insulin and IV fluids and antibiotics Vancomycin ordered for broad-spectrum coverage Patient pending bed placement in ICU Discharge - Discharge Information Problems reviewed: Yes Clinical Impression/Diagnosis: DKA (diabetic ketoacidoses) Qualifiers: Diabetes mellitus type: other specified (including RADHA) Diabetes mellitus complication detail: with coma Qualified Code(s): E13.11 - Other specified diabetes mellitus with ketoacidosis with coma Condition: Critical Disposition: - Follow up/Referral - Patient Discharge Instructions - Post Discharge Activity
--- NOTE | 2019-08-19 13:07 | ECHO ---
Version: 1 Name: STACIA KING Exam: Adult Echocardiogram Study Date: 08/19/2019, 8:22 AM Age: 24 Years MMode/2D Measurements & Calculations LAV (MOD-bp): 12.8 ml Doppler Measurements & Calculations MV E max сергей: 89.7 cm/sec Med E/e': 12.7 MV A max сергей: 77.6 cm/sec Med Peak E' Сергей: 7.1 cm/sec MV E/A: 1.16 Lat E/e': 9.5 Lat Peak E' Сергей: 9.5 cm/sec Ao max P.9 mmHg Ao V2 max: 157.5 cm/sec Procedure The study was non-diagnostic in quality. No definitive statements could be made about this echo due to extremely poor acoustic windows. A two-dimensional transthoracic echocardiogram with color flow and Doppler was performed in limited views only. Left Ventricle The left ventricle is grossly normal size. Left ventricular systolic function is grossly normal. Reg ional wall motion abnormalities cannot be excluded due to limited visualization. Right Ventricle The right ventricle is not well visualized. Atria The left atrial size is normal. Right atrium not well visualized. Mitral Valve The mitral valve is not well visualized. Aortic Valve The aortic valve opens well. Pulmonic Valve The pulmonic valve is not well visualized. Great Vessels The aortic root is not well visualized. Pericardium/Pleura There is no pericardial effusion. Summary Statements Technically limited study. Grossly normal left ventricular systolic function. MD Qian Hopkins08/19/2019, 12:06 PM Ordering Physician: Aquiles Malik Performed By: Sofia Knott
[2019-08-19 13:13] LABS: URINE RBC 0-2 /hpf (0-4)
[2019-08-19] MEDS ORDERED: VANCOMYCIN 1 GRAM (PRE-DOCKED) 1,000 MG/250 ML BAG IVPB ONE (13:35)
--- NOTE | 2019-08-19 14:16 | CONSULT ---
Consult Consult Specialty:: Nephrology Reason for Consultation:: LIYA - History of Present Illness Chief Complaint: altered mental status History of Present Illness: Pt is a 24 year old male with pmhx of Down Syndrome who presents to the ER with altered mental status. He was found to have elevated glucose and admitted for treatment. He was started on insulin and fluids. He was in renal failure and was hyperkalemic when he presented. He became hypotensive and tachypneic this morning. He had a cardiac arrest and compressions were started. He was revived. Pt was intubated in the process. I was called to see him today for renal failure. He is unable to give history. I did speak to his parents who assisted. His mother said that she first noticed that he was sick on Sunday when he was not himself. He had a few episodes of vomiting on Sunday. She then saw he was weaker and more fatigued. He could barely stand and she found him on the floor yesterday so she took him to [facility]. She says he was given fluids and his bloodwork was checked there. She says that she was told that his bloodwork is normal and he was discharged from the ER. She says that he did not look right so she brought him to [facility]. She says he could not walk to the car when leaving [facility] and had to be carried. She denies any medical problems. She says he gets annual physicals and was never told he was a diabetic. 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) - Alcohol/Substance Use Hx Alcohol Use: No - Smoking History Smoking history: Never smoked Home Medications - Allergies Allergies/Adverse Reactions: Allergies Allergy/AdvReac Type Severity Reaction Status Date / Time No Known Allergies Allergy Verified 08/19/19 03:07 - Home Medications Home Medications: Ambulatory Orders NK [No Known Home Medication] 08/19/19 Family Medical History Family History: Unable to Obtain Review of Systems Unable to obtain ROS, reason: pt intubated Physical Exam Vital Signs: Vital Signs Temperature 98.2 F 08/19/19 10:27 Pulse Rate 133 H 08/19/19 12:45 Respiratory Rate 16 08/19/19 13:05 Blood Pressure 82/58 L 08/19/19 12:45 O2 Sat by Pulse Oximetry (%) 85 L 08/19/19 12:45 Constitutional: Yes: Calm Eyes: Yes: Conjunctiva Clear Cardiovascular: Yes: S1, S2 Respiratory: Yes: Intubated, Mechanically Ventilated Gastrointestinal: Yes: Soft, Abdomen, Obese Renal/: Yes: Carey Present Musculoskeletal: Yes: Muscle Weakness Edema: No Integumentary: No: Rash Neurological: Yes: Lethargy Labs: CBC, BMP 08/19/19 04:05 08/19/19 10:06 Laboratory Tests 08/19/19 08/19/19 08/19/19 04:05 04:05 04:05 WBC 17.7 H Hgb 14.5 Sodium Potassium 6.5 H* Chloride Carbon Dioxide Anion Gap BUN Creatinine 6.8 H Random Glucose Hemoglobin A1c % Serum Osmolality Lactic Acid Urine Protein Urine Glucose (UA) Urine Blood Salicylates Opiates Screen Methadone Screen Acetaminophen <2.0 Barbiturate Screen Phencyclidine Screen Ur Amphetamines Screen MDMA (Ecstasy) Screen Benzodiazepines Screen Cocaine Screen U Marijuana (THC) Screen Alcohol, Quantitative 08/19/19 08/19/19 08/19/19 08:40 08:40 08:40 WBC Hgb Sodium Potassium 4.6 Chloride Carbon Dioxide Anion Gap BUN Creatinine 7.0 H Random Glucose Hemoglobin A1c % 13.0 H Serum Osmolality Lactic Acid 2.2 H* Urine Protein Urine Glucose (UA) Urine Blood Salicylates Opiates Screen Methadone Screen Acetaminophen Barbiturate Screen Phencyclidine Screen Ur Amphetamines Screen MDMA (Ecstasy) Screen Benzodiazepines Screen Cocaine Screen U Marijuana (THC) Screen Alcohol, Quantitative 08/19/19 08/19/19 08/19/19 08:42 08:42 10:06 WBC Hgb Sodium 136 Potassium 4.3 Chloride 102 Carbon Dioxide 17 L Anion Gap 17 H BUN 87.1 H Creatinine 7.3 H Random Glucose 1157 H* Hemoglobin A1c % Serum Osmolality 416 H Lactic Acid Urine Protein Urine Glucose (UA) Urine Blood Salicylates 3.7 Opiates Screen Methadone Screen Acetaminophen Barbiturate Screen Phencyclidine Screen Ur Amphetamines Screen MDMA (Ecstasy) Screen Benzodiazepines Screen Cocaine Screen U Marijuana (THC) Screen Alcohol, Quantitative 08/19/19 08/19/19 08/19/19 10:14 10:30 10:30 WBC Hgb Sodium Potassium Chloride Carbon Dioxide Anion Gap BUN Creatinine Random Glucose Hemoglobin A1c % Serum Osmolality Lactic Acid Urine Protein 1+ H Urine Glucose (UA) 3+ H Urine Blood 2+ H Salicylates Opiates Screen Negative Methadone Screen Negative Acetaminophen Barbiturate Screen Negative Phencyclidine Screen Negative Ur Amphetamines Screen Negative MDMA (Ecstasy) Screen Negative Benzodiazepines Screen Negative Cocaine Screen Negative U Marijuana (THC) Screen Negative Alcohol, Quantitative < 3.0 Imaging - Results Chest X-ray: Report Reviewed Ultrasound: Report Reviewed Problem List - Problems (1) LIYA (acute kidney injury) Code(s): N17.9 - ACUTE KIDNEY FAILURE, UNSPECIFIED (2) Hyperkalemia Code(s): E87.5 - HYPERKALEMIA (3) Acute respiratory failure Code(s): J96.00 - ACUTE RESPIRATORY FAILURE, UNSP W HYPOXIA OR HYPERCAPNIA (4) Diabetes mellitus Code(s): E11.9 - TYPE 2 DIABETES MELLITUS WITHOUT COMPLICATIONS Assessment/Plan Current Medications Generic Name Dose Route Start Last Admin Trade Name Freq PRN Reason Stop Dose Admin Chlorhexidine Gluconate 1 applic 08/19/19 22:00 Hibiclens For Decolonization - TP HS GAUTAM Heparin Sodium (Porcine) 5,000 unit 08/19/19 06:30 08/19/19 07:08 Heparin - SQ 5,000 unit TID GAUTAM Administration Insulin Human Regular 100 100 mls @ 12.42 mls/hr 08/19/19 05:00 08/19/19 06: 22 units/ Sodium Chloride IVPB 0.1 units/kg/hr TITR GAUTAM 12.42 mls/hr Administration Protocol 0.1 UNITS/KG/HR Potassium Chloride/Sodium Chloride 20 meq in 1,000 mls @ 250 mls/hr 08/19/19 10:15 08/19/19 11:01 Ns+20 Meq Kcl - IV 08/20/19 14:14 250 mls/hr ASDIR GAUTAM Administration Norepinephrine Bitartrate 4, 500 mls @ 37.5 mls/hr 08/19/19 12:00 08/19/19 12 :36 000 mcg/ Dextrose IV 120 mcg/min TITR GAUTAM 900 mls/hr Titration Protocol 5 MCG/MIN Midazolam HCl 100 mg in 100 mls @ 1 mls/hr 08/19/19 13:02 Midazolam 100mg/100ml-0.9%Nacl IVPB TITR GAUTAM Protocol 1 MG/HR Piperacillin Sod/Tazobactam 50 mls @ 100 mls/hr 08/19/19 15:00 Sod 2.25 gm/ Dextrose IVPB Q6H-IV AGUTAM Protocol Vasopressin 50 units/ Sodium 100 mls @ 4 mls/hr 08/19/19 13:45 Chloride IVPB ASDIR GAUTAM Protocol 2 UNITS/HR Piperacillin Sod/Tazobactam 50 mls @ 100 mls/hr 08/19/19 15:00 Sod 2.25 gm/ Dextrose IVPB 08/20/19 09:29 Q6H-IV GAUTAM Mupirocin 1 applic 08/19/19 10:00 Bactroban Ointment (For Decolonization) - NS 08/24/19 09:59 BID GAUTAM Impression 1. LIYA 2. hyperkalemia resolved 3. acute respiratory failure 4. cardiac arrest 5. Down syndrome 6. DM (a1c is 13) 7. sever dka 8. leukocytosis Plan - monitor urine output - cont fluids - cont insulin - vent support - case discussed with ICU team at length - obtain records from [facility] if possible - monitor blood sugar - monitor lytes - vent support - admit to ICU - pressors to a MAP of 65
[2019-08-19] MEDS ORDERED: MIDAZOLAM IN 0.9 % SOD.CHLORID 1 MG/1 ML PLAST..BAG ONE (14:18)
[2019-08-19] MEDS: MIDAZOLAM IN 0.9 % SOD.CHLORID 100 MG/100 ML PLAST..BAG IVPB SCH (14:30)
[2019-08-19] MEDS: VASOPRESSIN 50 UNITS in SODIUM CHLORIDE 97.5 ML IVPB SCH (14:40)
--- NOTE | 2019-08-19 14:40 | CONSULT ---
Consult Consult Specialty:: Infectious disease Referred by:: Dr Castillo Reason for Consultation:: Sepsis - History of Present Illness Chief Complaint: Altered mental status History of Present Illness: Pt is a 24 yo M with Down's syndrome, brought in for AMS. Pt reported to have had one episode of vomiting on Sunday of recently ingested food, no blood, no diarrhea. Pt had the same meal with the mom prior to onset of symptoms and felt ok and and went out with mom. On Sunday, pt had another episode of vomiting ,and only had broth. No diarrhea noted and no fevers noted at home. On Sunday, pt was too weak to get out of bed and slept most of the day. She heard a sound and found pt on floor. She then brought him to [facility] on Sunday night after the fall. Per mom, he was given 1L IVF and told that all the labs were neg except for imaging findings on neck requiring referral to a tertiary center. Per mother, in [facility], pt felt warm to her, with dry mouth, and altered from baseline so she brought pt via taxi directly to [facility]. In [facility] hospital, pt noted to have elevated glu in 100s, AGMA, initially tachycardic, became tachypneic, and was being mx for DKA. He received fluids and insulin, initially on NC, then non rebreather, then became hypotensive. While central access was being obtained, pt was noted to become hypoxic and arrested with possible PEA. He got chest compressions and one round of epi and ROSC was achieved in less than 1 minute. 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) - Alcohol/Substance Use Hx Alcohol Use: No - Smoking History Smoking history: Never smoked - Social History Usual Living Arrangement: With Parent History of Recent Travel: No <Agaba,Comfort I - Last Filed: 08/19/19 15:42> Home Medications <Agaba,Comfort I - Last Filed: 08/19/19 15:42> <Elaina Andrade - Last Filed: 08/19/19 18:31> - Allergies Allergies/Adverse Reactions: Allergies Allergy/AdvReac Type Severity Reaction Status Date / Time No Known Allergies Allergy Verified 08/19/19 03:07 - Home Medications Home Medications: Ambulatory Orders NK [No Known Home Medication] 08/19/19 Family Medical History Family Hx Diabetes: Grandmother (maternal) <Autumnba,Comfort I - Last Filed: 08/19/19 15:42> Review of Systems Unable to obtain ROS, reason: Pt intubated <Agaba,Comfort I - Last Filed: 08/19/19 15:42> Physical Exam Vital Signs: Vital Signs Temperature 98.2 F 08/19/19 10:27 Pulse Rate 133 H 08/19/19 12:45 Respiratory Rate 16 08/19/19 13:05 Blood Pressure 82/58 L 08/19/19 12:45 O2 Sat by Pulse Oximetry (%) 85 L 08/19/19 12:45 Constitutional: Yes: Obese HENT: Yes: Other (Large tongue-intubated- AC- 16/500/100/0) Cardiovascular: Yes: Tachycardia, S1, S2 Respiratory: Yes: Rhonchi (Scattered) Gastrointestinal: Yes: Soft, Abdomen, Obese Renal/: Yes: Adler Present (Clear urine) Edema: No Peripheral Pulses WNL: Yes Integumentary: Yes: Rash (Pustular rashes) Neurological: Yes: Lethargy Labs: CBC, BMP 08/19/19 04:05 <Agaba,Comfort I - Last Filed: 08/19/19 15:42> Vital Signs: Vital Signs Temperature 98.2 F 08/19/19 10:27 Pulse Rate 120 H 08/19/19 15:15 Respiratory Rate 27 H 08/19/19 17:22 Blood Pressure 92/55 L 08/19/19 15:15 O2 Sat by Pulse Oximetry (%) 78 L 08/19/19 15:00 Labs: CBC, BMP 08/19/19 04:05 08/19/19 17:00 <Elaina Andrade - Last Filed: 08/19/19 18:31> Imaging - Results Chest X-ray: Report Reviewed, Image Reviewed <Agaba,Comfort I - Last Filed: 08/19/19 15:42> Assessment/Plan Current Medications Chlorhexidine Gluconate (Hibiclens For Decolonization -) 1 applic TP HS GAUTAM Heparin Sodium (Porcine) (Heparin -) 5,000 unit SQ TID GAUTAM Last Admin: 08/19/19 07:08 Dose: 5,000 unit Insulin Human Regular 100 (units/ Sodium Chloride) 100 mls @ 12.42 mls/hr IVPB TITR GAUTAM; Protocol Last Admin: 08/19/19 06:22 Dose: 0.1 units/kg/hr, 12.42 mls/hr Potassium Chloride/Sodium Chloride (Ns+20 Meq Kcl -) 20 meq in 1,000 mls @ 250 mls/hr IV ASDIR GAUTAM Stop: 08/20/19 14:14 Last Admin: 08/19/19 11:01 Dose: 250 mls/hr Norepinephrine Bitartrate 4, (000 mcg/ Dextrose) 500 mls @ 37.5 mls/hr IV TITR GAUTAM; Protocol Last Titration: 08/19/19 14:40 Dose: 140 mcg/min, 1,050 mls/hr Midazolam HCl (Midazolam 100mg/100ml-0.9%Nacl) 100 mg in 100 mls @ 1 mls/hr IVPB TITR GAUTAM; Protocol Last Admin: 08/19/19 14:30 Dose: 1 mg/hr, 1 mls/hr Vasopressin 50 units/ Sodium (Chloride) 100 mls @ 4 mls/hr IVPB ASDIR GAUTAM; Protocol Last Admin: 08/19/19 14:40 Dose: 2 units/hr, 4 mls/hr Meropenem 1 gm/ Dextrose 100 mls @ 200 mls/hr IVPB Q12H GAUTAM Phenylephrine HCl 20,000 mcg/ (Sodium Chloride) 250 mls @ 75 mls/hr IVPB ASDIR GAUTAM; Protocol Mupirocin (Bactroban Ointment (For Decolonization) -) 1 applic NS BID GAUTAM Stop: 08/24/19 09:59 Assessemnt/Plan Pt is a 24 yo M with Down's syndrome, brought in for AMS, found to have DKA and possible pancreatitis,and new onset DM, noted to be hypoxic s/p cardiac arrest with PEA, postintubation n/v with possible aspiration Down's syndrome, AMS, DKA pancreatitis new onset DM, acute hypoxic respiratory failure s/p cardiac arrest with PEA, postintubation n/v aspiration AGMA Sepsis R thigh pustule, rashes Aspiration pneumonitis/pneumonia Plan: Sepsis possibly secondary to pancreatitis, unknown etiology Aspiration pneumonitis/pneumonia- pt noted to have vomited after intubation with new R lung infiltrates, changed from CXR prior to intubation Pt received vancomycin 1g in ED and zosyn 3.375mg Will do random vanc level with DKA labs possibly at about 10-00pm- Midnight if vanc level,15 with redose 1g Repeat Vanc level in am tomorrow Meropenem started -family denies recent admissions with AB / no known allergies Pending cxs Cont pressor support as needed IVF ICU level care indicated Guarded prognosis For abdominal imaging when stable to identify possible etiology of pancreatitis D/W Dr Raymond Galindo PGY 3 <Shanelle Galindo I - Last Filed: 08/19/19 15:42> Visit type - Emergency Visit Emergency Visit: Yes ED Registration Date: 08/19/19 Care time: The patient presented to the Emergency Department on the above date and was hospitalized for further evaluation of their emergent condition. - New Patient This patient is new to me today: Yes Date on this admission: 08/19/19 - Critical Care Critical Care patient: Yes Total Critical Care Time (in minutes): 39 Critical Care Statement: The care of this patient involved high complexity decision making to prevent further life threatening deterioration of the patient 's condition and/or to evaluate & treat vital organ system(s) failure or risk of failure. <Shanelle Galindo I - Last Filed: 08/19/19 15:42> ATTENDING PHYSICIAN STATEMENT I saw and evaluated the patient. I reviewed the resident's note and discussed the case with the resident. I agree with the resident's findings and plan as documented. SUBJECTIVE: OBJECTIVE: ASSESSMENT AND PLAN: <Shanelle Galindo I - Last Filed: 08/19/19 15:42> ATTENDING PHYSICIAN STATEMENT I saw and evaluated the patient. I reviewed the resident's note and discussed the case with the resident. I agree with the resident's findings and plan as documented. SUBJECTIVE:patient seen and examined in the Ed d/w ER attending Dr Gregory and sheri obtained from patient's mother vomiting on Sunday once only Sunday no appetite and fatigued, didnot get out of bed Sunday she called her older son for help taken by ambulance to [facility], released and came directly to [facility] denies fevers diarrhea at home she ate the same food as him on Sunday thought he felt warm at [facility] thought he looked dry didnot note excessive urination at home no meds at home no travel no sick contacts no recent antibiotics or hospital admissions ED course per resident noted- became hypotensive and coded when line was placed , intubated had profuse vomiting at that time OBJECTIVE: intubated obese young man sedated hypotensive cor-rrr lungs decreased bs at bases abd soft, unable to evaluate organomegaly due to size scattered folliculitis on inner thighs adler with urine CBC, BMP 08/19/19 04:05 08/19/19 17:00 glucose over 1000 on admission lipase [id number] cultures sent initial cxray no infiltrates after fluids and intubation- right upper lover infiltrates, bilateral lower lobe infiltrates- ASSESSMENT AND PLAN: s/p cardiac arrest DKA pancreatitis sepsis aspiration pneumonia renal failure down's syndrome vancomycin by levels meropenem pressors/fluids/insulin ventilator management abdominal imaging when possible to investigate pancreatitis overall prognosis is guarded over 45 minutes spent in the care of this critically ill ICU patient <Elaina Andrade - Last Filed: 08/19/19 18:31>
[2019-08-19] MEDS ORDERED: MEROPENEM 1 GM in DEXTROSE 5%-WATER 100 ML IVPB SCH (14:45)
[2019-08-19 14:59] LABS: ARTERIAL BLD GAS O2 SATURATION 82.6 % (95-98); ARTERIAL BLOOD GAS BASE EXCESS -10.6 meq/l (-2-2); ARTERIAL BLOOD GAS PCO2 47.4 mmHg (35-45)
[2019-08-19 14:59] LABS: BLOOD UREA NITROGEN 83.6 mg/dL (7-18); CALCIUM 7.1 mg/dL (8.5-10.1)
[2019-08-19 15:00] LABS: ALLENS TEST POSITIVE
[2019-08-19] MEDS ORDERED: PIPERACILLIN/TAZOB 2.25 GM 2.25 GM in DEXTROSE 5%-WATER - 50 ML IVPB SCH (15:00)
[2019-08-19 15:01] LABS: CREATININE 7.9 mg/dL (0.55-1.3)
[2019-08-19 15:02] LABS: ARTERIAL BLOOD GAS pH 7.19 (7.35-7.45)
[2019-08-19] MEDS: PHENYLEPHRINE HCL 20,000 MCG in SODIUM CHLORIDE 248 ML IVPB SCH (15:15)
[2019-08-19] MEDS ORDERED: SODIUM CHLORIDE 3,729 ML IV ONE (15:17)
[2019-08-19 16:25] LABS: BLOOD UREA NITROGEN 80.4 mg/dL (7-18); CREATININE 7.3 mg/dL (0.55-1.3); MAGNESIUM 2.6 mg/dL (1.8-2.4); PHOSPHOROUS 1.5 mg/dL (2.5-4.9); POTASSIUM 4.3 mmol/L (3.5-5.1)
[2019-08-19 16:37] LABS: CALCIUM 6.7 mg/dL (8.5-10.1)
[2019-08-19 17:07] LABS: ARTERIAL BLD GAS O2 SATURATION 81.3 % (95-98); ARTERIAL BLOOD GAS BASE EXCESS -10.7 meq/l (-2-2); ARTERIAL BLOOD GAS PCO2 45.5 mmHg (35-45)
[2019-08-19 17:14] LABS: ALLENS TEST POSITIVE
[2019-08-19 17:17] LABS: ARTERIAL BLOOD GAS PO2 < 49 mmHg (80-100)
[2019-08-19 17:28] VITALS: BMI 44.0
[2019-08-19 17:46] LABS: BLOOD UREA NITROGEN 80.5 mg/dL (7-18); CREATININE 7.3 mg/dL (0.55-1.3); POTASSIUM 4.2 mmol/L (3.5-5.1)
[2019-08-19] MEDS: SODIUM CHLORIDE 0.9%/KCL 20 MEQ/1,000 ML INFUS.BAG IV SCH (17:49)
[2019-08-19] MEDS ORDERED: PIPERACILLIN/TAZOB 3.375 GM 3.375 GM in DEXTROSE 5%-WATER - 50 ML IVPB SCH (18:00)
--- NOTE | 2019-08-19 18:01 | PN ---
Physical Exam: SUBJECTIVE: Patient is a 24 year old male with pmhx of Down Syndrome who presents to the ER with altered mental status, and was found to have elevated blood glucose of 1642,and was found to be in DKA. As per mother who is at bedside, stated that patient stopped eating and drinking mostly yesterday but the only intake that he was having was Denisse dominick. She 1st noticed that her son was sick on Sunday. As per mother, patient did not experience any hesitancy or urgency., and they never knew that he was diabetic. When this happened , mother stated that they took him to [facility] and they were told that he was fine and they discharged him. Then the mother called his brother and they carried him to the car and brought him to [facility] Emergency room where patient was admitted to ICU since he was critically ill for further treatment and evaluations. Patient was started on insulin and fluids. He was also was found to be in acute renal failure. Patient was given multiple IVF bolus. Later in the morning , patient became hypotensive and tachypneic and had a cardiac arrest , patient was resucitated and was intubated. I called [facility] in the afternoon, per their report the patient and his mother came to their ED around 9pm on Sunday night. They reported they did a "full metabolic sample" but that it was hemolyzed. They reported doing a chest xray and head CT which showed atlantoaxial instability but no other acute pathology. They did not report having obtained a FSG. Per their report, they were admitting the patient however the family was verbally abusive towards staff and refused to allow additional blood draws. The family left [facility] 2am and came straight to [facility]. OBJECTIVE: Vital Signs Period Temp Pulse Resp BP Sys/Stovall Pulse Ox Last 24 Hr 98.2 F-98.8 F 0-141 15-39 58-142/22-116 67-99 GENERAL: The patient is obtunded, obese, responsive to noxious stimuli HEAD: Normal with no signs of trauma. EYES: PERRL, extraocular movements intact, sclera anicteric, conjunctiva clear. No ptosis. ENT: Ears normal, nares patent, extremely dry mucous membranes, tongue with cracks and fissures NECK: Trachea midline, supple. LUNGS: Breath sounds equal, clear to auscultation bilaterally, no wheezes, no crackles- on anterior lung castaneda, patient was unable to turn HEART: Regular rhythm, S1, S2, tachycardic ABDOMEN: Soft, nontender,obese, normoactive bowel sounds EXTREMITIES: 2+ pulses, warm, well-perfused, no edema. NEUROLOGICAL:unable to assess SKIN: Warm, dry, normal turgor, no rashes Laboratory Results - last 24 hr 08/19/19 08/19/19 08/19/19 04:05 04:05 04:05 WBC RBC Hgb Hct MCV MCH MCHC RDW Plt Count MPV Absolute Neuts (auto) Neutrophils % Lymphocytes % Monocytes % Eosinophils % Basophils % Nucleated RBC % Hypochromia Platelet Estimate Polychromasia Poikilocytosis Anisocytosis Microcytosis Macrocytosis PT with INR INR PTT (Actin FS) 31.3 Anticoagulation Therapy No Result Required. Puncture Site Right radial ABG pH 7.15 L* ABG pCO2 at Pt Temp 33.6 L ABG pO2 at Pt Temp 80.7 ABG HCO3 11.3 L ABG O2 Sat (Measured) 94.5 L ABG O2 Content 19.2 ABG Base Excess -16.8 L Moisés Test Positive Carboxyhemoglobin 1.5 Methemoglobin < 1.0 O2 Delivery Device Room air Oxygen Flow Rate No Vent Mode No Result Required. Vent Rate No Result Required. Mechanical Rate No Result Required. PEEP Pressure Support Vent No Result Required. Sodium Potassium Chloride Carbon Dioxide Anion Gap BUN Creatinine Est GFR (CKD-EPI)AfAm Est GFR (CKD-EPI)NonAf POC Glucometer Random Glucose Hemoglobin A1c % Serum Osmolality Lactic Acid Calcium Phosphorus Magnesium Total Bilirubin AST ALT Alkaline Phosphatase Creatine Kinase Creatine Kinase Index CK-MB (CK-2) Troponin I Total Protein Albumin Triglycerides Lipase Beta-Hydroxybutyrate Urine Color Urine Appearance Urine pH Ur Specific [place] Urine Protein Urine Glucose (UA) Urine Ketones Urine Blood Urine Nitrite Urine Bilirubin Urine Urobilinogen Ur Leukocyte Esterase Urine WBC (Auto) Urine RBC (Auto) Urine Casts (Auto) U Epithel Cells (Auto) Urine Bacteria (Auto) Ur Random Creatinine Ur Random Sodium Salicylates Opiates Screen Methadone Screen Acetaminophen Barbiturate Screen Phencyclidine Screen Ur Amphetamines Screen MDMA (Ecstasy) Screen Benzodiazepines Screen Cocaine Screen U Marijuana (THC) Screen Alcohol, Quantitative 08/19/19 08/19/1919 04:05 04:05 04:05 WBC 17.7 H RBC 4.68 Hgb 14.5 Hct 52.8 H MCV 112.9 H MCH 30.9 MCHC 27.4 L RDW 17.4 H Plt Count 156 MPV 12.3 H Absolute Neuts (auto) 15.5 H Neutrophils % 87.2 H Lymphocytes % 3.7 L Monocytes % 8.9 Eosinophils % 0.0 Basophils % 0.2 Nucleated RBC % 0 Hypochromia 0 Platelet Estimate Decreased Polychromasia 1+ Poikilocytosis 0 Anisocytosis 0 Microcytosis 0 Macrocytosis 1+ PT with INR INR PTT (Actin FS) Anticoagulation Therapy Puncture Site ABG pH ABG pCO2 at Pt Temp ABG pO2 at Pt Temp ABG HCO3 ABG O2 Sat (Measured) ABG O2 Content ABG Base Excess Moisés Test Carboxyhemoglobin Methemoglobin O2 Delivery Device Oxygen Flow Rate Vent Mode Vent Rate Mechanical Rate PEEP Pressure Support Vent Sodium 127 L Potassium 6.5 H* Chloride 88 L Carbon Dioxide 13 L Anion Gap 26 H BUN 87.3 H Creatinine 6.8 H Est GFR (CKD-EPI)AfAm 12.14 Est GFR (CKD-EPI)NonAf 10.48 POC Glucometer Random Glucose 1642 H* Hemoglobin A1c % Serum Osmolality Lactic Acid 2.6 H* Calcium 8.0 L Phosphorus Magnesium Total Bilirubin 0.5 AST 33 ALT 51 Alkaline Phosphatase 141 H Creatine Kinase Creatine Kinase Index CK-MB (CK-2) Troponin I Total Protein 8.0 Albumin 3.4 Triglycerides Lipase Beta-Hydroxybutyrate Urine Color Urine Appearance Urine pH Ur Specific [place] Urine Protein Urine Glucose (UA) Urine Ketones Urine Blood Urine Nitrite Urine Bilirubin Urine Urobilinogen Ur Leukocyte Esterase Urine WBC (Auto) Urine RBC (Auto) Urine Casts (Auto) U Epithel Cells (Auto) Urine Bacteria (Auto) Ur Random Creatinine Ur Random Sodium Salicylates Opiates Screen Methadone Screen Acetaminophen Barbiturate Screen Phencyclidine Screen Ur Amphetamines Screen MDMA (Ecstasy) Screen Benzodiazepines Screen Cocaine Screen U Marijuana (THC) Screen Alcohol, Quantitative 08/19/19 08/19/19 08/19/19 04:05 04:05 04:05 WBC RBC Hgb Hct MCV MCH MCHC RDW Plt Count MPV Absolute Neuts (auto) Neutrophils % Lymphocytes % Monocytes % Eosinophils % Basophils % Nucleated RBC % Hypochromia Platelet Estimate Polychromasia Poikilocytosis Anisocytosis Microcytosis Macrocytosis PT with INR 14.20 H INR 1.20 H PTT (Actin FS) Anticoagulation Therapy Puncture Site ABG pH ABG pCO2 at Pt Temp ABG pO2 at Pt Temp ABG HCO3 ABG O2 Sat (Measured) ABG O2 Content ABG Base Excess Moisés Test Carboxyhemoglobin Methemoglobin O2 Delivery Device Oxygen Flow Rate Vent Mode Vent Rate Mechanical Rate PEEP Pressure Support Vent Sodium Potassium Chloride Carbon Dioxide Anion Gap BUN Creatinine Est GFR (CKD-EPI)AfAm Est GFR (CKD-EPI)NonAf POC Glucometer Random Glucose Hemoglobin A1c % Serum Osmolality Lactic Acid Calcium Phosphorus Magnesium Total Bilirubin AST ALT Alkaline Phosphatase Creatine Kinase 379 H Creatine Kinase Index 0.5 CK-MB (CK-2) 2.0 Troponin I < 0.02 Total Protein Albumin Triglycerides Lipase Beta-Hydroxybutyrate Urine Color Urine Appearance Urine pH Ur Specific [place] Urine Protein Urine Glucose (UA) Urine Ketones Urine Blood Urine Nitrite Urine Bilirubin Urine Urobilinogen Ur Leukocyte Esterase Urine WBC (Auto) Urine RBC (Auto) Urine Casts (Auto) U Epithel Cells (Auto) Urine Bacteria (Auto) Ur Random Creatinine Ur Random Sodium Salicylates Opiates Screen Methadone Screen Acetaminophen <2.0 Barbiturate Screen Phencyclidine Screen Ur Amphetamines Screen MDMA (Ecstasy) Screen Benzodiazepines Screen Cocaine Screen U Marijuana (THC) Screen Alcohol, Quantitative 08/19/19 08/19/19 08/19/19 04:42 05:22 07:10 WBC RBC Hgb Hct MCV MCH MCHC RDW Plt Count MPV Absolute Neuts (auto) Neutrophils % Lymphocytes % Monocytes % Eosinophils % Basophils % Nucleated RBC % Hypochromia Platelet Estimate Polychromasia Poikilocytosis Anisocytosis Microcytosis Macrocytosis PT with INR INR PTT (Actin FS) Anticoagulation Therapy No Result Required. Puncture Site Right radial ABG pH 7.13 L* ABG pCO2 at Pt Temp 36.0 ABG pO2 at Pt Temp 71.7 L ABG HCO3 11.6 L ABG O2 Sat (Measured) 92.4 L ABG O2 Content 17.4 ABG Base Excess -16.9 L Moisés Test Positive Carboxyhemoglobin Methemoglobin O2 Delivery Device Room air Oxygen Flow Rate No Vent Mode No Result Required. Vent Rate No Result Required. Mechanical Rate No Result Required. PEEP Pressure Support Vent No Result Required. Sodium Potassium Chloride Carbon Dioxide Anion Gap BUN Creatinine Est GFR (CKD-EPI)AfAm Est GFR (CKD-EPI)NonAf POC Glucometer > 600 > 600 Random Glucose Hemoglobin A1c % Serum Osmolality Lactic Acid Calcium Phosphorus Magnesium Total Bilirubin AST ALT Alkaline Phosphatase Creatine Kinase Creatine Kinase Index CK-MB (CK-2) Troponin I Total Protein Albumin Triglycerides Lipase Beta-Hydroxybutyrate Urine Color Urine Appearance Urine pH Ur Specific [place] Urine Protein Urine Glucose (UA) Urine Ketones Urine Blood Urine Nitrite Urine Bilirubin Urine Urobilinogen Ur Leukocyte Esterase Urine WBC (Auto) Urine RBC (Auto) Urine Casts (Auto) U Epithel Cells (Auto) Urine Bacteria (Auto) Ur Random Creatinine Ur Random Sodium Salicylates Opiates Screen Methadone Screen Acetaminophen Barbiturate Screen Phencyclidine Screen Ur Amphetamines Screen MDMA (Ecstasy) Screen Benzodiazepines Screen Cocaine Screen U Marijuana (THC) Screen Alcohol, Quantitative 08/19/19 08/19/19 08/19/19 07:16 07:35 08:15 WBC RBC Hgb Hct MCV MCH MCHC RDW Plt Count MPV Absolute Neuts (auto) Neutrophils % Lymphocytes % Monocytes % Eosinophils % Basophils % Nucleated RBC % Hypochromia Platelet Estimate Polychromasia Poikilocytosis Anisocytosis Microcytosis Macrocytosis PT with INR INR PTT (Actin FS) Anticoagulation Therapy Puncture Site ABG pH ABG pCO2 at Pt Temp ABG pO2 at Pt Temp ABG HCO3 ABG O2 Sat (Measured) ABG O2 Content ABG Base Excess Moisés Test Carboxyhemoglobin 1.8 Methemoglobin < 1.0 O2 Delivery Device Oxygen Flow Rate Vent Mode Vent Rate Mechanical Rate PEEP Pressure Support Vent Sodium Potassium Chloride Carbon Dioxide Anion Gap BUN Creatinine Est GFR (CKD-EPI)AfAm Est GFR (CKD-EPI)NonAf POC Glucometer > 600 Random Glucose Hemoglobin A1c % Serum Osmolality Lactic Acid Calcium Phosphorus Magnesium Total Bilirubin AST ALT Alkaline Phosphatase Creatine Kinase Creatine Kinase Index CK-MB (CK-2) Troponin I Total Protein Albumin Triglycerides Lipase Beta-Hydroxybutyrate Urine Color Yellow Urine Appearance Cloudy Urine pH 5.0 Ur Specific [place] 1.028 Urine Protein 1+ H Urine Glucose (UA) 3+ H Urine Ketones Trace H Urine Blood 2+ H Urine Nitrite Negative Urine Bilirubin Negative Urine Urobilinogen 0.2 Ur Leukocyte Esterase Negative Urine WBC (Auto) 3 Urine RBC (Auto) 0-2 Urine Casts (Auto) 4 U Epithel Cells (Auto) 4.3 Urine Bacteria (Auto) 39.0 Ur Random Creatinine Ur Random Sodium Salicylates Opiates Screen Methadone Screen Acetaminophen Barbiturate Screen Phencyclidine Screen Ur Amphetamines Screen MDMA (Ecstasy) Screen Benzodiazepines Screen Cocaine Screen U Marijuana (THC) Screen Alcohol, Quantitative 08/19/19 08/19/19 08/19/19 08:40 08:40 08:40 WBC RBC Hgb Hct MCV MCH MCHC RDW Plt Count MPV Absolute Neuts (auto) Neutrophils % Lymphocytes % Monocytes % Eosinophils % Basophils % Nucleated RBC % Hypochromia Platelet Estimate Polychromasia Poikilocytosis Anisocytosis Microcytosis Macrocytosis PT with INR INR PTT (Actin FS) Anticoagulation Therapy Puncture Site ABG pH ABG pCO2 at Pt Temp ABG pO2 at Pt Temp ABG HCO3 ABG O2 Sat (Measured) ABG O2 Content ABG Base Excess Moisés Test Carboxyhemoglobin Methemoglobin O2 Delivery Device Oxygen Flow Rate Vent Mode Vent Rate Mechanical Rate PEEP Pressure Support Vent Sodium Potassium Chloride Carbon Dioxide Anion Gap BUN Creatinine Est GFR (CKD-EPI)AfAm Est GFR (CKD-EPI)NonAf POC Glucometer Random Glucose Hemoglobin A1c % 13.0 H Serum Osmolality Lactic Acid Calcium Phosphorus 3.5 Magnesium 3.4 H Total Bilirubin AST ALT Alkaline Phosphatase Creatine Kinase Creatine Kinase Index CK-MB (CK-2) Troponin I Total Protein Albumin Triglycerides Lipase 89504 H Beta-Hydroxybutyrate Urine Color Urine Appearance Urine pH Ur Specific [place] Urine Protein Urine Glucose (UA) Urine Ketones Urine Blood Urine Nitrite Urine Bilirubin Urine Urobilinogen Ur Leukocyte Esterase Urine WBC (Auto) Urine RBC (Auto) Urine Casts (Auto) U Epithel Cells (Auto) Urine Bacteria (Auto) Ur Random Creatinine Ur Random Sodium Salicylates Opiates Screen Methadone Screen Acetaminophen Barbiturate Screen Phencyclidine Screen Ur Amphetamines Screen MDMA (Ecstasy) Screen Benzodiazepines Screen Cocaine Screen U Marijuana (THC) Screen Alcohol, Quantitative 08/19/19 08/19/19 08/19/19 08:40 08:40 08:40 WBC RBC Hgb Hct MCV MCH MCHC RDW Plt Count MPV Absolute Neuts (auto) Neutrophils % Lymphocytes % Monocytes % Eosinophils % Basophils % Nucleated RBC % Hypochromia Platelet Estimate Polychromasia Poikilocytosis Anisocytosis Microcytosis Macrocytosis PT with INR INR PTT (Actin FS) Anticoagulation Therapy Puncture Site ABG pH ABG pCO2 at Pt Temp ABG pO2 at Pt Temp ABG HCO3 ABG O2 Sat (Measured) ABG O2 Content ABG Base Excess Moisés Test Carboxyhemoglobin Methemoglobin O2 Delivery Device Oxygen Flow Rate Vent Mode Vent Rate Mechanical Rate PEEP Pressure Support Vent Sodium 136 Potassium 4.6 Chloride 98 Carbon Dioxide 15 L Anion Gap 23 H BUN 87.9 H Creatinine 7.0 H Est GFR (CKD-EPI)AfAm 11.73 Est GFR (CKD-EPI)NonAf 10.12 POC Glucometer Random Glucose 1293 H* Hemoglobin A1c % Serum Osmolality Lactic Acid Calcium 7.7 L Phosphorus Magnesium Total Bilirubin AST ALT Alkaline Phosphatase Creatine Kinase Creatine Kinase Index CK-MB (CK-2) Troponin I Total Protein Albumin Triglycerides Lipase Beta-Hydroxybutyrate > 46.0 H Urine Color Urine Appearance Urine pH Ur Specific [place] Urine Protein Urine Glucose (UA) Urine Ketones Urine Blood Urine Nitrite Urine Bilirubin Urine Urobilinogen Ur Leukocyte Esterase Urine WBC (Auto) Urine RBC (Auto) Urine Casts (Auto) U Epithel Cells (Auto) Urine Bacteria (Auto) Ur Random Creatinine 73.0 Ur Random Sodium 12 L Salicylates Opiates Screen Methadone Screen Acetaminophen Barbiturate Screen Phencyclidine Screen Ur Amphetamines Screen MDMA (Ecstasy) Screen Benzodiazepines Screen Cocaine Screen U Marijuana (THC) Screen Alcohol, Quantitative 08/19/19 08/19/19 08/19/19 08:40 08:42 08:42 WBC RBC Hgb Hct MCV MCH MCHC RDW Plt Count MPV Absolute Neuts (auto) Neutrophils % Lymphocytes % Monocytes % Eosinophils % Basophils % Nucleated RBC % Hypochromia Platelet Estimate Polychromasia Poikilocytosis Anisocytosis Microcytosis Macrocytosis PT with INR INR PTT (Actin FS) Anticoagulation Therapy Puncture Site ABG pH ABG pCO2 at Pt Temp ABG pO2 at Pt Temp ABG HCO3 ABG O2 Sat (Measured) ABG O2 Content ABG Base Excess Moisés Test Carboxyhemoglobin Methemoglobin O2 Delivery Device Oxygen Flow Rate Vent Mode Vent Rate Mechanical Rate PEEP Pressure Support Vent Sodium Potassium Chloride Carbon Dioxide Anion Gap BUN Creatinine Est GFR (CKD-EPI)AfAm Est GFR (CKD-EPI)NonAf POC Glucometer Random Glucose Hemoglobin A1c % Serum Osmolality 416 H Lactic Acid 2.2 H* Calcium Phosphorus Magnesium Total Bilirubin AST ALT Alkaline Phosphatase Creatine Kinase Creatine Kinase Index CK-MB (CK-2) Troponin I Total Protein Albumin Triglycerides Lipase Beta-Hydroxybutyrate Urine Color Urine Appearance Urine pH Ur Specific [place] Urine Protein Urine Glucose (UA) Urine Ketones Urine Blood Urine Nitrite Urine Bilirubin Urine Urobilinogen Ur Leukocyte Esterase Urine WBC (Auto) Urine RBC (Auto) Urine Casts (Auto) U Epithel Cells (Auto) Urine Bacteria (Auto) Ur Random Creatinine Ur Random Sodium Salicylates 3.7 Opiates Screen Methadone Screen Acetaminophen Barbiturate Screen Phencyclidine Screen Ur Amphetamines Screen MDMA (Ecstasy) Screen Benzodiazepines Screen Cocaine Screen U Marijuana (THC) Screen Alcohol, Quantitative 08/19/19 08/19/19 08/19/19 09:14 10:06 10:14 WBC RBC Hgb Hct MCV MCH MCHC RDW Plt Count MPV Absolute Neuts (auto) Neutrophils % Lymphocytes % Monocytes % Eosinophils % Basophils % Nucleated RBC % Hypochromia Platelet Estimate Polychromasia Poikilocytosis Anisocytosis Microcytosis Macrocytosis PT with INR INR PTT (Actin FS) Anticoagulation Therapy Puncture Site ABG pH ABG pCO2 at Pt Temp ABG pO2 at Pt Temp ABG HCO3 ABG O2 Sat (Measured) ABG O2 Content ABG Base Excess Moisés Test Carboxyhemoglobin Methemoglobin O2 Delivery Device Oxygen Flow Rate Vent Mode Vent Rate Mechanical Rate PEEP Pressure Support Vent Sodium 136 Potassium 4.3 Chloride 102 Carbon Dioxide 17 L Anion Gap 17 H BUN 87.1 H Creatinine 7.3 H Est GFR (CKD-EPI)AfAm 11.15 Est GFR (CKD-EPI)NonAf 9.62 POC Glucometer > 600 Random Glucose 1157 H* Hemoglobin A1c % Serum Osmolality Lactic Acid Calcium 7.6 L Phosphorus Magnesium Total Bilirubin AST ALT Alkaline Phosphatase Creatine Kinase Creatine Kinase Index CK-MB (CK-2) Troponin I Total Protein Albumin Triglycerides 492 H Lipase Beta-Hydroxybutyrate Urine Color Urine Appearance Urine pH Ur Specific [place] Urine Protein Urine Glucose (UA) Urine Ketones Urine Blood Urine Nitrite Urine Bilirubin Urine Urobilinogen Ur Leukocyte Esterase Urine WBC (Auto) Urine RBC (Auto) Urine Casts (Auto) U Epithel Cells (Auto) Urine Bacteria (Auto) Ur Random Creatinine Ur Random Sodium Salicylates Opiates Screen Methadone Screen Acetaminophen Barbiturate Screen Phencyclidine Screen Ur Amphetamines Screen MDMA (Ecstasy) Screen Benzodiazepines Screen Cocaine Screen U Marijuana (THC) Screen Alcohol, Quantitative < 3.0 08/19/19 08/19/19 08/19/19 10:20 10:23 10:30 WBC RBC Hgb Hct MCV MCH MCHC RDW Plt Count MPV Absolute Neuts (auto) Neutrophils % Lymphocytes % Monocytes % Eosinophils % Basophils % Nucleated RBC % Hypochromia Platelet Estimate Polychromasia Poikilocytosis Anisocytosis Microcytosis Macrocytosis PT with INR INR PTT (Actin FS) Anticoagulation Therapy No Result Required. Puncture Site Right radial ABG pH 7.22 L ABG pCO2 at Pt Temp 41.6 ABG pO2 at Pt Temp 50.8 L ABG HCO3 16.4 L ABG O2 Sat (Measured) 85.7 L ABG O2 Content 16.6 ABG Base Excess -10.6 L Moisés Test Positive Carboxyhemoglobin Methemoglobin O2 Delivery Device No Result Required. Oxygen Flow Rate Yes Vent Mode No Result Required. Vent Rate No Result Required. Mechanical Rate No Result Required. PEEP Pressure Support Vent No Result Required. Sodium Potassium Chloride Carbon Dioxide Anion Gap BUN Creatinine Est GFR (CKD-EPI)AfAm Est GFR (CKD-EPI)NonAf POC Glucometer > 600 Random Glucose Hemoglobin A1c % Serum Osmolality Lactic Acid Calcium Phosphorus Magnesium Total Bilirubin AST ALT Alkaline Phosphatase Creatine Kinase Creatine Kinase Index CK-MB (CK-2) Troponin I Total Protein Albumin Triglycerides Lipase Beta-Hydroxybutyrate Urine Color Yellow Urine Appearance Cloudy Urine pH 5.0 Ur Specific [place] 1.028 Urine Protein 1+ H Urine Glucose (UA) 3+ H Urine Ketones Trace H Urine Blood 2+ H Urine Nitrite Negative Urine Bilirubin Negative Urine Urobilinogen 0.2 Ur Leukocyte Esterase Negative Urine WBC (Auto) 3 Urine RBC (Auto) 0-2 Urine Casts (Auto) 4 U Epithel Cells (Auto) 3.6 Urine Bacteria (Auto) 41.1 Ur Random Creatinine Ur Random Sodium Salicylates Opiates Screen Methadone Screen Acetaminophen Barbiturate Screen Phencyclidine Screen Ur Amphetamines Screen MDMA (Ecstasy) Screen Benzodiazepines Screen Cocaine Screen U Marijuana (THC) Screen Alcohol, Quantitative 08/19/19 08/19/19 08/19/19 10:30 12:21 13:54 WBC RBC Hgb Hct MCV MCH MCHC RDW Plt Count MPV Absolute Neuts (auto) Neutrophils % Lymphocytes % Monocytes % Eosinophils % Basophils % Nucleated RBC % Hypochromia Platelet Estimate Polychromasia Poikilocytosis Anisocytosis Microcytosis Macrocytosis PT with INR INR PTT (Actin FS) Anticoagulation Therapy Puncture Site ABG pH ABG pCO2 at Pt Temp ABG pO2 at Pt Temp ABG HCO3 ABG O2 Sat (Measured) ABG O2 Content ABG Base Excess Moisés Test Carboxyhemoglobin Methemoglobin O2 Delivery Device Oxygen Flow Rate Vent Mode Vent Rate Mechanical Rate PEEP Pressure Support Vent Sodium 137 Potassium 5.0 Chloride 105 Carbon Dioxide 22 Anion Gap 10 BUN 83.6 H Creatinine 7.9 H* Est GFR (CKD-EPI)AfAm 10.13 Est GFR (CKD-EPI)NonAf 8.74 POC Glucometer > 600 Random Glucose 1017 H* Hemoglobin A1c % Serum Osmolality Lactic Acid Calcium 7.1 L Phosphorus Magnesium Total Bilirubin AST ALT Alkaline Phosphatase Creatine Kinase Creatine Kinase Index CK-MB (CK-2) Troponin I Total Protein Albumin Triglycerides Lipase Beta-Hydroxybutyrate Urine Color Urine Appearance Urine pH Ur Specific [place] Urine Protein Urine Glucose (UA) Urine Ketones Urine Blood Urine Nitrite Urine Bilirubin Urine Urobilinogen Ur Leukocyte Esterase Urine WBC (Auto) Urine RBC (Auto) Urine Casts (Auto) U Epithel Cells (Auto) Urine Bacteria (Auto) Ur Random Creatinine Ur Random Sodium Salicylates Opiates Screen Negative Methadone Screen Negative Acetaminophen Barbiturate Screen Negative Phencyclidine Screen Negative Ur Amphetamines Screen Negative MDMA (Ecstasy) Screen Negative Benzodiazepines Screen Negative Cocaine Screen Negative U Marijuana (THC) Screen Negative Alcohol, Quantitative 08/19/19 08/19/19 08/19/19 14:43 15:12 15:20 WBC RBC Hgb Hct MCV MCH MCHC RDW Plt Count MPV Absolute Neuts (auto) Neutrophils % Lymphocytes % Monocytes % Eosinophils % Basophils % Nucleated RBC % Hypochromia Platelet Estimate Polychromasia Poikilocytosis Anisocytosis Microcytosis Macrocytosis PT with INR INR PTT (Actin FS) Anticoagulation Therapy No Result Required. Puncture Site Left radial ABG pH 7.19 L* ABG pCO2 at Pt Temp 47.4 H ABG pO2 at Pt Temp 49.0 L* ABG HCO3 17.3 L ABG O2 Sat (Measured) 82.6 L ABG O2 Content 15.6 ABG Base Excess -10.6 L Moisés Test Positive Carboxyhemoglobin Methemoglobin O2 Delivery Device No Result Required. Oxygen Flow Rate 100 Vent Mode No Result Required. Vent Rate No Result Required. Mechanical Rate No Result Required. PEEP Pressure Support Vent No Result Required. Sodium 140 Potassium 4.3 Chloride 108 H Carbon Dioxide 23 Anion Gap 9 BUN 80.4 H Creatinine 7.3 H Est GFR (CKD-EPI)AfAm 11.15 Est GFR (CKD-EPI)NonAf 9.62 POC Glucometer > 600 Random Glucose 935 H* Hemoglobin A1c % Serum Osmolality Lactic Acid Calcium 6.7 L* Phosphorus 1.5 L Magnesium 2.6 H Total Bilirubin AST ALT Alkaline Phosphatase Creatine Kinase Creatine Kinase Index CK-MB (CK-2) Troponin I Total Protein Albumin Triglycerides Lipase Beta-Hydroxybutyrate Urine Color Urine Appearance Urine pH Ur Specific [place] Urine Protein Urine Glucose (UA) Urine Ketones Urine Blood Urine Nitrite Urine Bilirubin Urine Urobilinogen Ur Leukocyte Esterase Urine WBC (Auto) Urine RBC (Auto) Urine Casts (Auto) U Epithel Cells (Auto) Urine Bacteria (Auto) Ur Random Creatinine Ur Random Sodium Salicylates Opiates Screen Methadone Screen Acetaminophen Barbiturate Screen Phencyclidine Screen Ur Amphetamines Screen MDMA (Ecstasy) Screen Benzodiazepines Screen Cocaine Screen U Marijuana (THC) Screen Alcohol, Quantitative 08/19/19 08/19/19 08/19/19 15:20 16:45 17:00 WBC RBC Hgb Hct MCV MCH MCHC RDW Plt Count MPV Absolute Neuts (auto) Neutrophils % Lymphocytes % Monocytes % Eosinophils % Basophils % Nucleated RBC % Hypochromia Platelet Estimate Polychromasia Poikilocytosis Anisocytosis Microcytosis Macrocytosis PT with INR INR PTT (Actin FS) Anticoagulation Therapy No Result Required. Puncture Site Left radial ABG pH 7.20 L ABG pCO2 at Pt Temp 45.5 H ABG pO2 at Pt Temp < 49 L* ABG HCO3 17.0 L ABG O2 Sat (Measured) 81.3 L ABG O2 Content No Result Required. ABG Base Excess -10.7 L Moisés Test Positive Carboxyhemoglobin Methemoglobin O2 Delivery Device [facility]. vent Oxygen Flow Rate 100% Vent Mode A/c Vent Rate 18 Mechanical Rate Yes PEEP 0.0 Pressure Support Vent 500 Sodium 139 Potassium 4.2 Chloride 108 H Carbon Dioxide 21 Anion Gap 11 BUN 80.5 H Creatinine 7.3 H Est GFR (CKD-EPI)AfAm 11.15 Est GFR (CKD-EPI)NonAf 9.62 POC Glucometer Random Glucose 864 H* Hemoglobin A1c % Serum Osmolality Lactic Acid 4.4 H* Calcium 7.0 L Phosphorus Magnesium Total Bilirubin AST ALT Alkaline Phosphatase Creatine Kinase Creatine Kinase Index CK-MB (CK-2) Troponin I Total Protein Albumin Triglycerides Lipase Beta-Hydroxybutyrate Urine Color Urine Appearance Urine pH Ur Specific [place] Urine Protein Urine Glucose (UA) Urine Ketones Urine Blood Urine Nitrite Urine Bilirubin Urine Urobilinogen Ur Leukocyte Esterase Urine WBC (Auto) Urine RBC (Auto) Urine Casts (Auto) U Epithel Cells (Auto) Urine Bacteria (Auto) Ur Random Creatinine Ur Random Sodium Salicylates Opiates Screen Methadone Screen Acetaminophen Barbiturate Screen Phencyclidine Screen Ur Amphetamines Screen MDMA (Ecstasy) Screen Benzodiazepines Screen Cocaine Screen U Marijuana (THC) Screen Alcohol, Quantitative Active Medications Generic Name Dose Route Start Last Admin Trade Name Freq PRN Reason Stop Dose Admin Chlorhexidine Gluconate 1 applic 08/19/19 22:00 Hibiclens For Decolonization - TP HS GAUTAM Heparin Sodium (Porcine) 5,000 unit 08/19/19 06:30 08/19/19 07:08 Heparin - SQ 5,000 unit TID GAUTAM Administration Hydrocortisone Sodium Succinate 50 mg 08/19/19 18:00 Solu-Cortef - IVPUSH Q6H GAUTAM Norepinephrine Bitartrate 4, 500 mls @ 37.5 mls/hr 08/19/19 12:00 08/19/19 15 :00 000 mcg/ Dextrose IV 225 mcg/min TITR GAUTAM 1,687.5 mls/hr Titration Protocol 5 MCG/MIN Midazolam HCl 100 mg in 100 mls @ 1 mls/hr 08/19/19 13:02 08/19/19 14:40 Midazolam 100mg/100ml-0.9%Nacl IVPB 3 mg/hr TITR GAUTAM 3 mls/hr Titration Protocol 1 MG/HR Vasopressin 50 units/ Sodium 100 mls @ 4 mls/hr 08/19/19 13:45 08/19/19 15:00 Chloride IVPB 6 units/hr ASDIR GAUTAM 12 mls/hr Titration Protocol 2 UNITS/HR Meropenem 1 gm/ Dextrose 100 mls @ 200 mls/hr 08/19/19 15:00 IVPB Q12H GAUTAM As Directed Phenylephrine HCl 20,000 mcg/ 250 mls @ 75 mls/hr 08/19/19 15:15 08/19/19 15: 15 Sodium Chloride IVPB 100 mcg/min ASDIR GAUTAM 75 mls/hr Administration Protocol 100 MCG/MIN Potassium Chloride/Sodium Chloride 20 meq in 1,000 mls @ 200 mls/hr 08/19/19 15:30 08/19/19 17:49 Ns+20 Meq Kcl - IV Not Given ASDIR GAUTAM Insulin Human Regular 100 100 mls @ 17.39 mls/hr 08/19/19 15:22 units/ Sodium Chloride IVPB TITR GAUTAM Protocol 0.14 UNITS/KG/HR Vecuronium Weldon 50 mg/ 250 mls @ 33.82 mls/hr 08/19/19 18:00 Dextrose IVPB TITR GAUTAM 1 MCG/KG/MIN Mupirocin 1 applic 08/19/19 22:00 Bactroban Ointment (For Decolonization) - NS 08/24/19 21:59 BID GAUTAM ASSESSMENT/PLAN: 24 y/o/m with PMHx of down syndrome here for altered mental status. 1)DKA - secondary to possible infection vs. 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 Jurado - monitor urine output - cont fluids 5)Leukocytosis - WBC at 17.7 -no source of infection at this time -CXR pending -follow Blood cultures, urine culture, UA -likely secondary to hypervolemia, patient afebrile at this time 6)Prophylaxis -Heparin 7)FEN -1/2 NS 8)Disposition -admitted to ICU Visit type - Emergency Visit Emergency Visit: Yes ED Registration Date: 08/19/19 Care time: The patient presented to the Emergency Department on the above date and was hospitalized for further evaluation of their emergent condition. - New Patient This patient is new to me today: Yes Date on this admission: 08/20/19 - Critical Care Critical Care patient: Yes Total Critical Care Time (in minutes): 40 Critical Care Statement: The care of this patient involved high complexity decision making to prevent further life threatening deterioration of the patient 's condition and/or to evaluate & treat vital organ system(s) failure or risk of failure. ATTENDING PHYSICIAN STATEMENT I saw and evaluated the patient. I reviewed the resident's note and discussed the case with the resident. I agree with the resident's findings and plan as documented. SUBJECTIVE: OBJECTIVE: ASSESSMENT AND PLAN:
[2019-08-19] MEDS ORDERED: NOREPINEPHRINE BITARTRATE 4 MG/4 ML ML IV ONE (18:08)
[2019-08-19] MEDS ORDERED: SODIUM BICARBONATE 8.4% 50 MEQ/50 ML VIAL ONE (18:40)
[2019-08-19] MEDS ORDERED: PHENYLEPHRINE HCL 10 MG/1 ML SINGLE DOSE VIAL ONE (18:40)
[2019-08-19] MEDS ORDERED: DEXTROSE 5%-WATER 100 ML IVPB ONE (18:56)
[2019-08-19] MEDS ORDERED: MEROPENEM 1 GM VIAL (RESTRICTED TO ID) IVPB ONE (18:56)
[2019-08-19] MEDS: HYDROCORTISONE SOD SUCCINATE 100 MG/2 ML VIAL IVPUSH SCH (19:00)
[2019-08-19] MEDS: CLINDAMYCIN 900 MG PREMIX IVPB 900 MG/50 ML BAG IVPB SCH (19:00)
[2019-08-19] MEDS: MEROPENEM 1 GM in DEXTROSE 5%-WATER 100 ML IVPB SCH (19:29)
--- NOTE | 2019-08-19 19:46 | PN ---
Teaching Attending Note Name of Resident: Aiyana Mendoza ATTENDING PHYSICIAN STATEMENT I saw and evaluated the patient. I reviewed the resident's note and discussed the case with the resident. I agree with the resident's findings and plan as documented. SUBJECTIVE: Patient is a 24 year old male with pmhx of Down Syndrome who presents to the ER with altered mental status, and was found to have elevated blood glucose of 1642 ,and was found to be in DKA. As per mother who is at bedside, stated that patient stopped eating and drinking mostly yesterday but the only intake that he was having was Denisse dominick. She 1st noticed that her son was sick on Sunday. As per mother, patient did not experience any polydipsia or urinary hesitancy or urgency, and she never knew that he was diabetic. When He stopped eating and drinking, mother stated that they took him to [facility] and they were told that he was fine and they discharged him. As per mother stated that Then the mother called his brother and they carried him to the car and brought him to [facility] Emergency room where patient was admitted to ICU since he was critically ill for further treatment and evaluations. Patient was started on insulin and fluids. He was also was found to be in acute renal failure. Patient was given multiple IVF bolus. Later in the morning , patient became hypotensive and tachypneic and had a cardiopulmonary arrest , patient was resuscitated and was intubated. OBJECTIVE: Vital Signs - 24 hr 08/19/19 08/19/19 08/19/19 02:39 05:54 07:29 Temperature 98.8 F 98.6 F Pulse Rate 111 H Pulse Rate [ Apical] Pulse Rate [ 119 H Left Radial] Respiratory 15 31 H 17 Rate Blood Pressure 116/95 102/56 L Blood Pressure 104/34 L [Right Arm] O2 Sat by Pulse 97 95 Oximetry (%) 08/19/19 08/19/19 08/19/19 08:07 10:00 10:27 Temperature 98.2 F Pulse Rate Pulse Rate [ Apical] Pulse Rate [ 124 H 118 H 122 H Left Radial] Respiratory 20 21 H 20 Rate Blood Pressure Blood Pressure 103/63 97/55 L 82/65 L [Right Arm] O2 Sat by Pulse 98 99 99 Oximetry (%) 08/19/19 08/19/19 08/19/19 11:00 11:16 11:40 Temperature Pulse Rate Pulse Rate [ Apical] Pulse Rate [ 120 H 120 H Left Radial] Respiratory 20 30 H Rate Blood Pressure Blood Pressure 86/51 L 81/37 L [Right Arm] O2 Sat by Pulse 99 88 L 92 L Oximetry (%) 08/19/19 08/19/19 08/19/19 11:50 12:15 12:25 Temperature Pulse Rate Pulse Rate [ 122 H 85 54 L Apical] Pulse Rate [ Left Radial] Respiratory 39 H 20 Rate Blood Pressure Blood Pressure 96/29 L 142/116 H 90/64 [Right Arm] O2 Sat by Pulse Oximetry (%) 08/19/19 08/19/19 08/19/19 12:30 12:33 12:35 Temperature Pulse Rate 131 H Pulse Rate [ 0 L 138 H Apical] Pulse Rate [ Left Radial] Respiratory 31 H Rate Blood Pressure 73/32 L Blood Pressure 89/71 L 72/40 L [Right Arm] O2 Sat by Pulse 67 L 71 L Oximetry (%) 08/19/19 08/19/19 08/19/19 12:40 12:45 13:00 Temperature Pulse Rate Pulse Rate [ 135 H 133 H 141 H Apical] Pulse Rate [ Left Radial] Respiratory 33 H 20 25 H Rate Blood Pressure Blood Pressure 81/51 L 82/58 L 89/53 L [Right Arm] O2 Sat by Pulse 85 L 88 L Oximetry (%) 08/19/19 08/19/19 08/19/19 13:05 13:25 13:30 Temperature Pulse Rate 130 H Pulse Rate [ 91 H Apical] Pulse Rate [ Left Radial] Respiratory 16 25 H Rate Blood Pressure 70/39 L Blood Pressure 116/71 [Right Arm] O2 Sat by Pulse 91 L Oximetry (%) 08/19/19 08/19/19 08/19/19 13:50 14:00 14:15 Temperature Pulse Rate Pulse Rate [ 123 H 120 H 122 H Apical] Pulse Rate [ Left Radial] Respiratory 28 H 28 H 22 H Rate Blood Pressure Blood Pressure 122/93 70/45 L 74/45 L [Right Arm] O2 Sat by Pulse 90 L 83 L 81 L Oximetry (%) 08/19/19 08/19/19 08/19/19 14:26 14:33 14:40 Temperature Pulse Rate 123 H Pulse Rate [ 122 H 124 H 123 H Apical] Pulse Rate [ 124 H 123 H Left Radial] Respiratory 25 H 27 H 25 H Rate Blood Pressure 69/49 L Blood Pressure 58/33 L 83/37 L 69/49 L [Right Arm] O2 Sat by Pulse 85 L 85 L Oximetry (%) 08/19/19 08/19/19 08/19/19 14:42 14:45 15:00 Temperature Pulse Rate 126 H Pulse Rate [ 123 H 123 H Apical] Pulse Rate [ 123 H Left Radial] Respiratory 20 22 H 27 H Rate Blood Pressure 92/66 Blood Pressure 81/47 L 83/37 L [Right Arm] O2 Sat by Pulse 85 L 74 L Oximetry (%) 08/19/19 08/19/19 08/19/19 15:10 15:15 16:57 Temperature Pulse Rate 120 H Pulse Rate [ Apical] Pulse Rate [ Left Radial] Respiratory 26 H 29 H Rate Blood Pressure 92/55 L Blood Pressure [Right Arm] O2 Sat by Pulse Oximetry (%) 08/19/19 08/19/19 08/19/19 17:00 17:22 18:00 Temperature 98.2 F Pulse Rate 121 H 127 H Pulse Rate [ Apical] Pulse Rate [ Left Radial] Respiratory 24 H 27 H 24 H Rate Blood Pressure 102/56 L 89/33 L Blood Pressure [Right Arm] O2 Sat by Pulse Oximetry (%) GENERAL: The patient is intubated . HEAD: Normal with no signs of trauma. EYES: blinks the eyes. sclera anicteric, conjunctiva clear. ENT: Ears normal, oropharynx very dry mucus membrane. positive for ET tube NECK: Trachea midline. LUNGS: intubated , decreased Breath sounds bl, no wheezes, no crackles, no accessory muscle use. HEART: tachycardic ,S1, S2 positive , no rub or gallop. ABDOMEN: Soft, nontender, nondistended, normoactive bowel sounds, no guarding, no rebound. EXTREMITIES: 2+ pulses, warm, no edema. NEUROLOGICAL: Cranial nerves II through XII grossly intact. PSYCH: unable to access SKIN: Warm, very dry mucus membrane CBCD WBC 17.7 K/mm3 (4.0-10.0) H 08/19/19 04:05 RBC 4.68 M/mm3 (4.00-5.60) 08/19/19 04:05 Hgb 14.5 GM/dL (11.7-16.9) 08/19/19 04:05 Hct 52.8 % (35.4-49) H 08/19/19 04:05 MCV 112.9 fl (80-96) H 08/19/19 04:05 MCHC 27.4 g/dl (32.0-35.9) L 08/19/19 04:05 RDW 17.4 % (11.9-15.9) H 08/19/19 04:05 Plt Count 156 K/MM3 (134-434) 08/19/19 04:05 MPV 12.3 fl (7.5-11.1) H 08/19/19 04:05 CMP Sodium 139 mmol/L (136-145) 08/19/19 17:00 Potassium 4.2 mmol/L (3.5-5.1) 08/19/19 17:00 Chloride 108 mmol/L (98-107) H 08/19/19 17:00 Carbon Dioxide 21 mmol/L (21-32) 08/19/19 17:00 Anion Gap 11 MMOL/L (8-16) 08/19/19 17:00 BUN 80.5 mg/dL (7-18) H 08/19/19 17:00 Creatinine 7.3 mg/dL (0.55-1.3) H 08/19/19 17:00 Random Glucose 864 mg/dL (74-106) H* 08/19/19 17:00 Calcium 7.0 mg/dL (8.5-10.1) L 08/19/19 17:00 Total Bilirubin 0.5 mg/dL (0.2-1) 08/19/19 04:05 AST 33 U/L (15-37) 08/19/19 04:05 ALT 51 U/L (13-61) 08/19/19 04:05 Alkaline Phosphatase 141 U/L (45-117) H 08/19/19 04:05 Total Protein 8.0 g/dl (6.4-8.2) 08/19/19 04:05 Albumin 3.4 g/dl (3.4-5.0) 08/19/19 04:05 CARDIAC ENZYMES Creatine Kinase 379 U/L (26-308) H 08/19/19 04:05 Troponin I < 0.02 ng/ml (0.00-0.05) 08/19/19 04:05 Laboratory Tests 08/19/19 08/19/19 08/19/19 04:05 04:05 08:40 Sodium 127 L Potassium 6.5 H* Carbon Dioxide Anion Gap 26 H BUN 87.3 H Creatinine 6.8 H Est GFR (CKD-EPI)AfAm Est GFR (CKD-EPI)NonAf Random Glucose 1642 H* Hemoglobin A1c % Serum Osmolality Lactic Acid 2.6 H* Phosphorus Lipase 69523 H Beta-Hydroxybutyrate 08/19/19 08/19/19 08/19/19 08:40 08:40 08:40 Sodium Potassium 4.6 Carbon Dioxide 15 L Anion Gap 23 H BUN 87.9 H Creatinine 7.0 H Est GFR (CKD-EPI)AfAm Est GFR (CKD-EPI)NonAf Random Glucose 1293 H* Hemoglobin A1c % 13.0 H Serum Osmolality Lactic Acid 2.2 H* Phosphorus Lipase Beta-Hydroxybutyrate > 46.0 H 08/19/19 08/19/19 08/19/19 08:42 10:06 13:54 Sodium Potassium 4.3 5.0 Carbon Dioxide 17 L Anion Gap 17 H 10 BUN 87.1 H 83.6 H Creatinine 7.3 H 7.9 H* Est GFR (CKD-EPI)AfAm 11.15 10.13 Est GFR (CKD-EPI)NonAf 9.62 8.74 Random Glucose 1157 H* Hemoglobin A1c % Serum Osmolality 416 H Lactic Acid Phosphorus Lipase Beta-Hydroxybutyrate 08/19/19 08/19/19 08/19/19 15:20 15:20 17:00 Sodium Potassium Carbon Dioxide 23 21 Anion Gap 9 11 BUN 80.4 H 80.5 H Creatinine 7.3 H 7.3 H Est GFR (CKD-EPI)AfAm Est GFR (CKD-EPI)NonAf Random Glucose Hemoglobin A1c % Serum Osmolality Lactic Acid 4.4 H* Phosphorus 1.5 L Lipase Beta-Hydroxybutyrate 08/19/19 17:00 Sodium Potassium Carbon Dioxide Anion Gap BUN Creatinine Est GFR (CKD-EPI)AfAm Est GFR (CKD-EPI)NonAf Random Glucose Hemoglobin A1c % Serum Osmolality Lactic Acid 4.8 H* Phosphorus Lipase Beta-Hydroxybutyrate ASSESSMENT AND PLAN: Patient is a 24 year old male with pmhx of Down Syndrome who presents to the ER with altered mental status, and was found to have elevated blood glucose of 1642 ,and was found to be in DKA. ED course per resident noted: patient became hypotensive and coded when line was placed, intubated s/p profuse vomiting with aspiration. # Acute DKA #Acute respiratory failure' #acute renal failure # s/p Cardiac arrest #Severe dehydration # Acute pancreatitis #Sepsis with ARDS #Acute hypophosphetemia Plan: ICU , industrial spray painter/ID/PUlmonary/nephro/endocrine/cardiac consult appreciated Ventilator management per ICU team IVF 0.9NS , Insulin drip titrate, BMPs every 4 hrs, Vitals every hour pressors Norepi,phenelepherine, bicarbs IV antibiotics per ID , septic w/u pending ,lactic acid trend
--- NOTE | 2019-08-19 20:08 | CONSULT ---
Consult Consult Specialty:: endocrine Referred by:: corinne celis md. Reason for Consultation:: dka - History of Present Illness Chief Complaint: intubated sedated History of Present Illness: 24 year old male with pmhx of Down Syndrome who presented to the ER with weakness and lethargy. He was found to have elevated glucose 1642 mg/dl and admitted for treatment and evaluation. He was started on insulin and fluids. He had no prior history of dm,found to be in renal failure and hyperkalemic when he presented. He had several bouts of vomiting became hypotensive and tachypneic required intubation and ivfluids,as well as pressors for bp support. he has remained on insulin drip requiring close monitoring. 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) - Alcohol/Substance Use Hx Alcohol Use: No - Smoking History Smoking history: Never smoked - Social History Usual Living Arrangement: With Parent History of Recent Travel: No Home Medications - Allergies Allergies/Adverse Reactions: Allergies Allergy/AdvReac Type Severity Reaction Status Date / Time No Known Allergies Allergy Verified 08/19/19 03:07 - Home Medications Home Medications: Ambulatory Orders NK [No Known Home Medication] 08/19/19 Review of Systems Unable to obtain ROS, reason: sedated / intubated Physical Exam Vital Signs: Vital Signs Temperature 98.2 F 08/19/19 18:00 Pulse Rate 127 H 08/19/19 18:00 Respiratory Rate 24 H 08/19/19 18:00 Blood Pressure 89/33 L 08/19/19 18:00 O2 Sat by Pulse Oximetry (%) 78 L 08/19/19 15:00 Constitutional: Yes: Moderate Distress Eyes: Yes: Conjunctiva Clear HENT: Yes: Atraumatic, Normocephalic Neck: Yes: Trachea Midline Cardiovascular: Yes: Tachycardia Respiratory: Yes: Mechanically Ventilated Gastrointestinal: Yes: Abdomen, Obese ...Rectal Exam: Yes: Deferred Breast(s): Yes: Gynecomastia Musculoskeletal: Yes: Muscle Weakness Extremities: Yes: Cold Edema: No Neurological: Yes: Unresponsive Labs: CBC, BMP 08/19/19 04:05 08/19/19 17:00 Assessment/Plan Current Active Problems DKA LIYA (acute kidney injury) (Acute) Acute respiratory failure (Acute) ? ASPIRATION Diabetes mellitus (Acute) Hyperkalemia (Acute) Cardiogenic shock Abnormal Lab Results 08/19/19 08/19/19 08/19/19 04:05 04:05 04:05 WBC 17.7 H Hct 52.8 H MCV 112.9 H MCHC 27.4 L RDW 17.4 H MPV 12.3 H Absolute Neuts (auto) 15.5 H Neutrophils % 87.2 H Lymphocytes % 3.7 L PT with INR INR ABG pH 7.15 L* ABG pCO2 at Pt Temp 33.6 L ABG pO2 at Pt Temp ABG HCO3 11.3 L ABG O2 Sat (Measured) 94.5 L ABG Base Excess -16.8 L Sodium 127 L Potassium 6.5 H* Chloride 88 L Carbon Dioxide 13 L Anion Gap 26 H BUN 87.3 H Creatinine 6.8 H Random Glucose 1642 H* Hemoglobin A1c % Serum Osmolality Lactic Acid Calcium 8.0 L Phosphorus Magnesium Alkaline Phosphatase 141 H Creatine Kinase Triglycerides Lipase Beta-Hydroxybutyrate Urine Protein Urine Glucose (UA) Urine Ketones Urine Blood Ur Random Sodium 08/19/19 08/19/19 08/19/19 04:05 04:05 04:05 WBC Hct MCV MCHC RDW MPV Absolute Neuts (auto) Neutrophils % Lymphocytes % PT with INR 14.20 H INR 1.20 H ABG pH ABG pCO2 at Pt Temp ABG pO2 at Pt Temp ABG HCO3 ABG O2 Sat (Measured) ABG Base Excess Sodium Potassium Chloride Carbon Dioxide Anion Gap BUN Creatinine Random Glucose Hemoglobin A1c % Serum Osmolality Lactic Acid 2.6 H* Calcium Phosphorus Magnesium Alkaline Phosphatase Creatine Kinase 379 H Triglycerides Lipase Beta-Hydroxybutyrate Urine Protein Urine Glucose (UA) Urine Ketones Urine Blood Ur Random Sodium 08/19/19 08/19/19 08/19/19 07:10 08:15 08:40 WBC Hct MCV MCHC RDW MPV Absolute Neuts (auto) Neutrophils % Lymphocytes % PT with INR INR ABG pH 7.13 L* ABG pCO2 at Pt Temp ABG pO2 at Pt Temp 71.7 L ABG HCO3 11.6 L ABG O2 Sat (Measured) 92.4 L ABG Base Excess -16.9 L Sodium Potassium Chloride Carbon Dioxide Anion Gap BUN Creatinine Random Glucose Hemoglobin A1c % Serum Osmolality Lactic Acid Calcium Phosphorus Magnesium 3.4 H Alkaline Phosphatase Creatine Kinase Triglycerides Lipase Beta-Hydroxybutyrate Urine Protein 1+ H Urine Glucose (UA) 3+ H Urine Ketones Trace H Urine Blood 2+ H Ur Random Sodium 08/19/19 08/19/19 08/19/19 08:40 08:40 08:40 WBC Hct MCV MCHC RDW MPV Absolute Neuts (auto) Neutrophils % Lymphocytes % PT with INR INR ABG pH ABG pCO2 at Pt Temp ABG pO2 at Pt Temp ABG HCO3 ABG O2 Sat (Measured) ABG Base Excess Sodium Potassium Chloride Carbon Dioxide 15 L Anion Gap 23 H BUN 87.9 H Creatinine 7.0 H Random Glucose 1293 H* Hemoglobin A1c % 13.0 H Serum Osmolality Lactic Acid Calcium 7.7 L Phosphorus Magnesium Alkaline Phosphatase Creatine Kinase Triglycerides Lipase 92247 H Beta-Hydroxybutyrate > 46.0 H Urine Protein Urine Glucose (UA) Urine Ketones Urine Blood Ur Random Sodium 08/19/19 08/19/19 08/19/19 08:40 08:40 08:42 WBC Hct MCV MCHC RDW MPV Absolute Neuts (auto) Neutrophils % Lymphocytes % PT with INR INR ABG pH ABG pCO2 at Pt Temp ABG pO2 at Pt Temp ABG HCO3 ABG O2 Sat (Measured) ABG Base Excess Sodium Potassium Chloride Carbon Dioxide Anion Gap BUN Creatinine Random Glucose Hemoglobin A1c % Serum Osmolality 416 H Lactic Acid 2.2 H* Calcium Phosphorus Magnesium Alkaline Phosphatase Creatine Kinase Triglycerides Lipase Beta-Hydroxybutyrate Urine Protein Urine Glucose (UA) Urine Ketones Urine Blood Ur Random Sodium 12 L 08/19/19 08/19/19 08/19/19 10:06 10:20 10:30 WBC Hct MCV MCHC RDW MPV Absolute Neuts (auto) Neutrophils % Lymphocytes % PT with INR INR ABG pH 7.22 L ABG pCO2 at Pt Temp ABG pO2 at Pt Temp 50.8 L ABG HCO3 16.4 L ABG O2 Sat (Measured) 85.7 L ABG Base Excess -10.6 L Sodium Potassium Chloride Carbon Dioxide 17 L Anion Gap 17 H BUN 87.1 H Creatinine 7.3 H Random Glucose 1157 H* Hemoglobin A1c % Serum Osmolality Lactic Acid Calcium 7.6 L Phosphorus Magnesium Alkaline Phosphatase Creatine Kinase Triglycerides 492 H Lipase Beta-Hydroxybutyrate Urine Protein 1+ H Urine Glucose (UA) 3+ H Urine Ketones Trace H Urine Blood 2+ H Ur Random Sodium 08/19/19 08/19/19 08/19/19 13:54 14:43 15:20 WBC Hct MCV MCHC RDW MPV Absolute Neuts (auto) Neutrophils % Lymphocytes % PT with INR INR ABG pH 7.19 L* ABG pCO2 at Pt Temp 47.4 H ABG pO2 at Pt Temp 49.0 L* ABG HCO3 17.3 L ABG O2 Sat (Measured) 82.6 L ABG Base Excess -10.6 L Sodium Potassium Chloride 108 H Carbon Dioxide Anion Gap BUN 83.6 H 80.4 H Creatinine 7.9 H* 7.3 H Random Glucose 1017 H* 935 H* Hemoglobin A1c % Serum Osmolality Lactic Acid Calcium 7.1 L 6.7 L* Phosphorus 1.5 L Magnesium 2.6 H Alkaline Phosphatase Creatine Kinase Triglycerides Lipase Beta-Hydroxybutyrate Urine Protein Urine Glucose (UA) Urine Ketones Urine Blood Ur Random Sodium 08/19/19 08/19/19 08/19/19 15:20 16:45 17:00 WBC Hct MCV MCHC RDW MPV Absolute Neuts (auto) Neutrophils % Lymphocytes % PT with INR INR ABG pH 7.20 L ABG pCO2 at Pt Temp 45.5 H ABG pO2 at Pt Temp < 49 L* ABG HCO3 17.0 L ABG O2 Sat (Measured) 81.3 L ABG Base Excess -10.7 L Sodium Potassium Chloride 108 H Carbon Dioxide Anion Gap BUN 80.5 H Creatinine 7.3 H Random Glucose 864 H* Hemoglobin A1c % Serum Osmolality Lactic Acid 4.4 H* Calcium 7.0 L Phosphorus Magnesium Alkaline Phosphatase Creatine Kinase Triglycerides Lipase Beta-Hydroxybutyrate Urine Protein Urine Glucose (UA) Urine Ketones Urine Blood Ur Random Sodium 08/19/19 17:00 WBC Hct MCV MCHC RDW MPV Absolute Neuts (auto) Neutrophils % Lymphocytes % PT with INR INR ABG pH ABG pCO2 at Pt Temp ABG pO2 at Pt Temp ABG HCO3 ABG O2 Sat (Measured) ABG Base Excess Sodium Potassium Chloride Carbon Dioxide Anion Gap BUN Creatinine Random Glucose Hemoglobin A1c % Serum Osmolality Lactic Acid 4.8 H* Calcium Phosphorus Magnesium Alkaline Phosphatase Creatine Kinase Triglycerides Lipase Beta-Hydroxybutyrate Urine Protein Urine Glucose (UA) Urine Ketones Urine Blood Ur Random Sodium Laboratory Results - last 24 hr 08/19/19 08/19/19 08/19/19 04:05 04:05 04:05 WBC RBC Hgb Hct MCV MCH MCHC RDW Plt Count MPV Absolute Neuts (auto) Neutrophils % Lymphocytes % Monocytes % Eosinophils % Basophils % Nucleated RBC % Hypochromia Platelet Estimate Polychromasia Poikilocytosis Anisocytosis Microcytosis Macrocytosis PT with INR INR PTT (Actin FS) 31.3 Anticoagulation Therapy No Result Required. Puncture Site Right radial ABG pH 7.15 L* ABG pCO2 at Pt Temp 33.6 L ABG pO2 at Pt Temp 80.7 ABG HCO3 11.3 L ABG O2 Sat (Measured) 94.5 L ABG O2 Content 19.2 ABG Base Excess -16.8 L Moisés Test Positive Carboxyhemoglobin 1.5 Methemoglobin < 1.0 O2 Delivery Device Room air Oxygen Flow Rate No Vent Mode No Result Required. Vent Rate No Result Required. Mechanical Rate No Result Required. PEEP Pressure Support Vent No Result Required. Sodium Potassium Chloride Carbon Dioxide Anion Gap BUN Creatinine Est GFR (CKD-EPI)AfAm Est GFR (CKD-EPI)NonAf POC Glucometer Random Glucose Hemoglobin A1c % Serum Osmolality Lactic Acid Calcium Phosphorus Magnesium Total Bilirubin AST ALT Alkaline Phosphatase Creatine Kinase Creatine Kinase Index CK-MB (CK-2) Troponin I Total Protein Albumin Triglycerides Lipase Beta-Hydroxybutyrate Urine Color Urine Appearance Urine pH Ur Specific [place] Urine Protein Urine Glucose (UA) Urine Ketones Urine Blood Urine Nitrite Urine Bilirubin Urine Urobilinogen Ur Leukocyte Esterase Urine WBC (Auto) Urine RBC (Auto) Urine Casts (Auto) U Epithel Cells (Auto) Urine Bacteria (Auto) Ur Random Creatinine Ur Random Sodium Salicylates Opiates Screen Methadone Screen Acetaminophen Barbiturate Screen Phencyclidine Screen Ur Amphetamines Screen MDMA (Ecstasy) Screen Benzodiazepines Screen Cocaine Screen U Marijuana (THC) Screen Alcohol, Quantitative 08/19/19 08/19/19 08/19/19 04:05 04:05 04:05 WBC 17.7 H RBC 4.68 Hgb 14.5 Hct 52.8 H MCV 112.9 H MCH 30.9 MCHC 27.4 L RDW 17.4 H Plt Count 156 MPV 12.3 H Absolute Neuts (auto) 15.5 H Neutrophils % 87.2 H Lymphocytes % 3.7 L Monocytes % 8.9 Eosinophils % 0.0 Basophils % 0.2 Nucleated RBC % 0 Hypochromia 0 Platelet Estimate Decreased Polychromasia 1+ Poikilocytosis 0 Anisocytosis 0 Microcytosis 0 Macrocytosis 1+ PT with INR INR PTT (Actin FS) Anticoagulation Therapy Puncture Site ABG pH ABG pCO2 at Pt Temp ABG pO2 at Pt Temp ABG HCO3 ABG O2 Sat (Measured) ABG O2 Content ABG Base Excess Moisés Test Carboxyhemoglobin Methemoglobin O2 Delivery Device Oxygen Flow Rate Vent Mode Vent Rate Mechanical Rate PEEP Pressure Support Vent Sodium 127 L Potassium 6.5 H* Chloride 88 L Carbon Dioxide 13 L Anion Gap 26 H BUN 87.3 H Creatinine 6.8 H Est GFR (CKD-EPI)AfAm 12.14 Est GFR (CKD-EPI)NonAf 10.48 POC Glucometer Random Glucose 1642 H* Hemoglobin A1c % Serum Osmolality Lactic Acid 2.6 H* Calcium 8.0 L Phosphorus Magnesium Total Bilirubin 0.5 AST 33 ALT 51 Alkaline Phosphatase 141 H Creatine Kinase Creatine Kinase Index CK-MB (CK-2) Troponin I Total Protein 8.0 Albumin 3.4 Triglycerides Lipase Beta-Hydroxybutyrate Urine Color Urine Appearance Urine pH Ur Specific [place] Urine Protein Urine Glucose (UA) Urine Ketones Urine Blood Urine Nitrite Urine Bilirubin Urine Urobilinogen Ur Leukocyte Esterase Urine WBC (Auto) Urine RBC (Auto) Urine Casts (Auto) U Epithel Cells (Auto) Urine Bacteria (Auto) Ur Random Creatinine Ur Random Sodium Salicylates Opiates Screen Methadone Screen Acetaminophen Barbiturate Screen Phencyclidine Screen Ur Amphetamines Screen MDMA (Ecstasy) Screen Benzodiazepines Screen Cocaine Screen U Marijuana (THC) Screen Alcohol, Quantitative 08/19/19 08/19/19 08/19/19 04:05 04:05 04:05 WBC RBC Hgb Hct MCV MCH MCHC RDW Plt Count MPV Absolute Neuts (auto) Neutrophils % Lymphocytes % Monocytes % Eosinophils % Basophils % Nucleated RBC % Hypochromia Platelet Estimate Polychromasia Poikilocytosis Anisocytosis Microcytosis Macrocytosis PT with INR 14.20 H INR 1.20 H PTT (Actin FS) Anticoagulation Therapy Puncture Site ABG pH ABG pCO2 at Pt Temp ABG pO2 at Pt Temp ABG HCO3 ABG O2 Sat (Measured) ABG O2 Content ABG Base Excess Moisés Test Carboxyhemoglobin Methemoglobin O2 Delivery Device Oxygen Flow Rate Vent Mode Vent Rate Mechanical Rate PEEP Pressure Support Vent Sodium Potassium Chloride Carbon Dioxide Anion Gap BUN Creatinine Est GFR (CKD-EPI)AfAm Est GFR (CKD-EPI)NonAf POC Glucometer Random Glucose Hemoglobin A1c % Serum Osmolality Lactic Acid Calcium Phosphorus Magnesium Total Bilirubin AST ALT Alkaline Phosphatase Creatine Kinase 379 H Creatine Kinase Index 0.5 CK-MB (CK-2) 2.0 Troponin I < 0.02 Total Protein Albumin Triglycerides Lipase Beta-Hydroxybutyrate Urine Color Urine Appearance Urine pH Ur Specific [place] Urine Protein Urine Glucose (UA) Urine Ketones Urine Blood Urine Nitrite Urine Bilirubin Urine Urobilinogen Ur Leukocyte Esterase Urine WBC (Auto) Urine RBC (Auto) Urine Casts (Auto) U Epithel Cells (Auto) Urine Bacteria (Auto) Ur Random Creatinine Ur Random Sodium Salicylates Opiates Screen Methadone Screen Acetaminophen <2.0 Barbiturate Screen Phencyclidine Screen Ur Amphetamines Screen MDMA (Ecstasy) Screen Benzodiazepines Screen Cocaine Screen U Marijuana (THC) Screen Alcohol, Quantitative 08/19/19 08/19/19 08/19/19 04:42 05:22 07:10 WBC RBC Hgb Hct MCV MCH MCHC RDW Plt Count MPV Absolute Neuts (auto) Neutrophils % Lymphocytes % Monocytes % Eosinophils % Basophils % Nucleated RBC % Hypochromia Platelet Estimate Polychromasia Poikilocytosis Anisocytosis Microcytosis Macrocytosis PT with INR INR PTT (Actin FS) Anticoagulation Therapy No Result Required. Puncture Site Right radial ABG pH 7.13 L* ABG pCO2 at Pt Temp 36.0 ABG pO2 at Pt Temp 71.7 L ABG HCO3 11.6 L ABG O2 Sat (Measured) 92.4 L ABG O2 Content 17.4 ABG Base Excess -16.9 L Moisés Test Positive Carboxyhemoglobin Methemoglobin O2 Delivery Device Room air Oxygen Flow Rate No Vent Mode No Result Required. Vent Rate No Result Required. Mechanical Rate No Result Required. PEEP Pressure Support Vent No Result Required. Sodium Potassium Chloride Carbon Dioxide Anion Gap BUN Creatinine Est GFR (CKD-EPI)AfAm Est GFR (CKD-EPI)NonAf POC Glucometer > 600 > 600 Random Glucose Hemoglobin A1c % Serum Osmolality Lactic Acid Calcium Phosphorus Magnesium Total Bilirubin AST ALT Alkaline Phosphatase Creatine Kinase Creatine Kinase Index CK-MB (CK-2) Troponin I Total Protein Albumin Triglycerides Lipase Beta-Hydroxybutyrate Urine Color Urine Appearance Urine pH Ur Specific [place] Urine Protein Urine Glucose (UA) Urine Ketones Urine Blood Urine Nitrite Urine Bilirubin Urine Urobilinogen Ur Leukocyte Esterase Urine WBC (Auto) Urine RBC (Auto) Urine Casts (Auto) U Epithel Cells (Auto) Urine Bacteria (Auto) Ur Random Creatinine Ur Random Sodium Salicylates Opiates Screen Methadone Screen Acetaminophen Barbiturate Screen Phencyclidine Screen Ur Amphetamines Screen MDMA (Ecstasy) Screen Benzodiazepines Screen Cocaine Screen U Marijuana (THC) Screen Alcohol, Quantitative 08/19/19 08/19/19 08/19/19 07:16 07:35 08:15 WBC RBC Hgb Hct MCV MCH MCHC RDW Plt Count MPV Absolute Neuts (auto) Neutrophils % Lymphocytes % Monocytes % Eosinophils % Basophils % Nucleated RBC % Hypochromia Platelet Estimate Polychromasia Poikilocytosis Anisocytosis Microcytosis Macrocytosis PT with INR INR PTT (Actin FS) Anticoagulation Therapy Puncture Site ABG pH ABG pCO2 at Pt Temp ABG pO2 at Pt Temp ABG HCO3 ABG O2 Sat (Measured) ABG O2 Content ABG Base Excess Moisés Test Carboxyhemoglobin 1.8 Methemoglobin < 1.0 O2 Delivery Device Oxygen Flow Rate Vent Mode Vent Rate Mechanical Rate PEEP Pressure Support Vent Sodium Potassium Chloride Carbon Dioxide Anion Gap BUN Creatinine Est GFR (CKD-EPI)AfAm Est GFR (CKD-EPI)NonAf POC Glucometer > 600 Random Glucose Hemoglobin A1c % Serum Osmolality Lactic Acid Calcium Phosphorus Magnesium Total Bilirubin AST ALT Alkaline Phosphatase Creatine Kinase Creatine Kinase Index CK-MB (CK-2) Troponin I Total Protein Albumin Triglycerides Lipase Beta-Hydroxybutyrate Urine Color Yellow Urine Appearance Cloudy Urine pH 5.0 Ur Specific [place] 1.028 Urine Protein 1+ H Urine Glucose (UA) 3+ H Urine Ketones Trace H Urine Blood 2+ H Urine Nitrite Negative Urine Bilirubin Negative Urine Urobilinogen 0.2 Ur Leukocyte Esterase Negative Urine WBC (Auto) 3 Urine RBC (Auto) 0-2 Urine Casts (Auto) 4 U Epithel Cells (Auto) 4.3 Urine Bacteria (Auto) 39.0 Ur Random Creatinine Ur Random Sodium Salicylates Opiates Screen Methadone Screen Acetaminophen Barbiturate Screen Phencyclidine Screen Ur Amphetamines Screen MDMA (Ecstasy) Screen Benzodiazepines Screen Cocaine Screen U Marijuana (THC) Screen Alcohol, Quantitative 08/19/19 08/19/19 08/19/19 08:40 08:40 08:40 WBC RBC Hgb Hct MCV MCH MCHC RDW Plt Count MPV Absolute Neuts (auto) Neutrophils % Lymphocytes % Monocytes % Eosinophils % Basophils % Nucleated RBC % Hypochromia Platelet Estimate Polychromasia Poikilocytosis Anisocytosis Microcytosis Macrocytosis PT with INR INR PTT (Actin FS) Anticoagulation Therapy Puncture Site ABG pH ABG pCO2 at Pt Temp ABG pO2 at Pt Temp ABG HCO3 ABG O2 Sat (Measured) ABG O2 Content ABG Base Excess Moisés Test Carboxyhemoglobin Methemoglobin O2 Delivery Device Oxygen Flow Rate Vent Mode Vent Rate Mechanical Rate PEEP Pressure Support Vent Sodium Potassium Chloride Carbon Dioxide Anion Gap BUN Creatinine Est GFR (CKD-EPI)AfAm Est GFR (CKD-EPI)NonAf POC Glucometer Random Glucose Hemoglobin A1c % 13.0 H Serum Osmolality Lactic Acid Calcium Phosphorus 3.5 Magnesium 3.4 H Total Bilirubin AST ALT Alkaline Phosphatase Creatine Kinase Creatine Kinase Index CK-MB (CK-2) Troponin I Total Protein Albumin Triglycerides Lipase 03261 H Beta-Hydroxybutyrate Urine Color Urine Appearance Urine pH Ur Specific [place] Urine Protein Urine Glucose (UA) Urine Ketones Urine Blood Urine Nitrite Urine Bilirubin Urine Urobilinogen Ur Leukocyte Esterase Urine WBC (Auto) Urine RBC (Auto) Urine Casts (Auto) U Epithel Cells (Auto) Urine Bacteria (Auto) Ur Random Creatinine Ur Random Sodium Salicylates Opiates Screen Methadone Screen Acetaminophen Barbiturate Screen Phencyclidine Screen Ur Amphetamines Screen MDMA (Ecstasy) Screen Benzodiazepines Screen Cocaine Screen U Marijuana (THC) Screen Alcohol, Quantitative 08/19/19 08/19/19 08/19/19 08:40 08:40 08:40 WBC RBC Hgb Hct MCV MCH MCHC RDW Plt Count MPV Absolute Neuts (auto) Neutrophils % Lymphocytes % Monocytes % Eosinophils % Basophils % Nucleated RBC % Hypochromia Platelet Estimate Polychromasia Poikilocytosis Anisocytosis Microcytosis Macrocytosis PT with INR INR PTT (Actin FS) Anticoagulation Therapy Puncture Site ABG pH ABG pCO2 at Pt Temp ABG pO2 at Pt Temp ABG HCO3 ABG O2 Sat (Measured) ABG O2 Content ABG Base Excess Moisés Test Carboxyhemoglobin Methemoglobin O2 Delivery Device Oxygen Flow Rate Vent Mode Vent Rate Mechanical Rate PEEP Pressure Support Vent Sodium 136 Potassium 4.6 Chloride 98 Carbon Dioxide 15 L Anion Gap 23 H BUN 87.9 H Creatinine 7.0 H Est GFR (CKD-EPI)AfAm 11.73 Est GFR (CKD-EPI)NonAf 10.12 POC Glucometer Random Glucose 1293 H* Hemoglobin A1c % Serum Osmolality Lactic Acid Calcium 7.7 L Phosphorus Magnesium Total Bilirubin AST ALT Alkaline Phosphatase Creatine Kinase Creatine Kinase Index CK-MB (CK-2) Troponin I Total Protein Albumin Triglycerides Lipase Beta-Hydroxybutyrate > 46.0 H Urine Color Urine Appearance Urine pH Ur Specific [place] Urine Protein Urine Glucose (UA) Urine Ketones Urine Blood Urine Nitrite Urine Bilirubin Urine Urobilinogen Ur Leukocyte Esterase Urine WBC (Auto) Urine RBC (Auto) Urine Casts (Auto) U Epithel Cells (Auto) Urine Bacteria (Auto) Ur Random Creatinine 73.0 Ur Random Sodium 12 L Salicylates Opiates Screen Methadone Screen Acetaminophen Barbiturate Screen Phencyclidine Screen Ur Amphetamines Screen MDMA (Ecstasy) Screen Benzodiazepines Screen Cocaine Screen U Marijuana (THC) Screen Alcohol, Quantitative 08/19/19 08/19/19 08/19/19 08:40 08:42 08:42 WBC RBC Hgb Hct MCV MCH MCHC RDW Plt Count MPV Absolute Neuts (auto) Neutrophils % Lymphocytes % Monocytes % Eosinophils % Basophils % Nucleated RBC % Hypochromia Platelet Estimate Polychromasia Poikilocytosis Anisocytosis Microcytosis Macrocytosis PT with INR INR PTT (Actin FS) Anticoagulation Therapy Puncture Site ABG pH ABG pCO2 at Pt Temp ABG pO2 at Pt Temp ABG HCO3 ABG O2 Sat (Measured) ABG O2 Content ABG Base Excess Moisés Test Carboxyhemoglobin Methemoglobin O2 Delivery Device Oxygen Flow Rate Vent Mode Vent Rate Mechanical Rate PEEP Pressure Support Vent Sodium Potassium Chloride Carbon Dioxide Anion Gap BUN Creatinine Est GFR (CKD-EPI)AfAm Est GFR (CKD-EPI)NonAf POC Glucometer Random Glucose Hemoglobin A1c % Serum Osmolality 416 H Lactic Acid 2.2 H* Calcium Phosphorus Magnesium Total Bilirubin AST ALT Alkaline Phosphatase Creatine Kinase Creatine Kinase Index CK-MB (CK-2) Troponin I Total Protein Albumin Triglycerides Lipase Beta-Hydroxybutyrate Urine Color Urine Appearance Urine pH Ur Specific [place] Urine Protein Urine Glucose (UA) Urine Ketones Urine Blood Urine Nitrite Urine Bilirubin Urine Urobilinogen Ur Leukocyte Esterase Urine WBC (Auto) Urine RBC (Auto) Urine Casts (Auto) U Epithel Cells (Auto) Urine Bacteria (Auto) Ur Random Creatinine Ur Random Sodium Salicylates 3.7 Opiates Screen Methadone Screen Acetaminophen Barbiturate Screen Phencyclidine Screen Ur Amphetamines Screen MDMA (Ecstasy) Screen Benzodiazepines Screen Cocaine Screen U Marijuana (THC) Screen Alcohol, Quantitative 08/19/19 08/19/19 08/19/19 09:14 10:06 10:14 WBC RBC Hgb Hct MCV MCH MCHC RDW Plt Count MPV Absolute Neuts (auto) Neutrophils % Lymphocytes % Monocytes % Eosinophils % Basophils % Nucleated RBC % Hypochromia Platelet Estimate Polychromasia Poikilocytosis Anisocytosis Microcytosis Macrocytosis PT with INR INR PTT (Actin FS) Anticoagulation Therapy Puncture Site ABG pH ABG pCO2 at Pt Temp ABG pO2 at Pt Temp ABG HCO3 ABG O2 Sat (Measured) ABG O2 Content ABG Base Excess Moisés Test Carboxyhemoglobin Methemoglobin O2 Delivery Device Oxygen Flow Rate Vent Mode Vent Rate Mechanical Rate PEEP Pressure Support Vent Sodium 136 Potassium 4.3 Chloride 102 Carbon Dioxide 17 L Anion Gap 17 H BUN 87.1 H Creatinine 7.3 H Est GFR (CKD-EPI)AfAm 11.15 Est GFR (CKD-EPI)NonAf 9.62 POC Glucometer > 600 Random Glucose 1157 H* Hemoglobin A1c % Serum Osmolality Lactic Acid Calcium 7.6 L Phosphorus Magnesium Total Bilirubin AST ALT Alkaline Phosphatase Creatine Kinase Creatine Kinase Index CK-MB (CK-2) Troponin I Total Protein Albumin Triglycerides 492 H Lipase Beta-Hydroxybutyrate Urine Color Urine Appearance Urine pH Ur Specific [place] Urine Protein Urine Glucose (UA) Urine Ketones Urine Blood Urine Nitrite Urine Bilirubin Urine Urobilinogen Ur Leukocyte Esterase Urine WBC (Auto) Urine RBC (Auto) Urine Casts (Auto) U Epithel Cells (Auto) Urine Bacteria (Auto) Ur Random Creatinine Ur Random Sodium Salicylates Opiates Screen Methadone Screen Acetaminophen Barbiturate Screen Phencyclidine Screen Ur Amphetamines Screen MDMA (Ecstasy) Screen Benzodiazepines Screen Cocaine Screen U Marijuana (THC) Screen Alcohol, Quantitative < 3.0 08/19/19 08/19/19 08/19/19 10:20 10:23 10:30 WBC RBC Hgb Hct MCV MCH MCHC RDW Plt Count MPV Absolute Neuts (auto) Neutrophils % Lymphocytes % Monocytes % Eosinophils % Basophils % Nucleated RBC % Hypochromia Platelet Estimate Polychromasia Poikilocytosis Anisocytosis Microcytosis Macrocytosis PT with INR INR PTT (Actin FS) Anticoagulation Therapy No Result Required. Puncture Site Right radial ABG pH 7.22 L ABG pCO2 at Pt Temp 41.6 ABG pO2 at Pt Temp 50.8 L ABG HCO3 16.4 L ABG O2 Sat (Measured) 85.7 L ABG O2 Content 16.6 ABG Base Excess -10.6 L Moisés Test Positive Carboxyhemoglobin Methemoglobin O2 Delivery Device No Result Required. Oxygen Flow Rate Yes Vent Mode No Result Required. Vent Rate No Result Required. Mechanical Rate No Result Required. PEEP Pressure Support Vent No Result Required. Sodium Potassium Chloride Carbon Dioxide Anion Gap BUN Creatinine Est GFR (CKD-EPI)AfAm Est GFR (CKD-EPI)NonAf POC Glucometer > 600 Random Glucose Hemoglobin A1c % Serum Osmolality Lactic Acid Calcium Phosphorus Magnesium Total Bilirubin AST ALT Alkaline Phosphatase Creatine Kinase Creatine Kinase Index CK-MB (CK-2) Troponin I Total Protein Albumin Triglycerides Lipase Beta-Hydroxybutyrate Urine Color Yellow Urine Appearance Cloudy Urine pH 5.0 Ur Specific [place] 1.028 Urine Protein 1+ H Urine Glucose (UA) 3+ H Urine Ketones Trace H Urine Blood 2+ H Urine Nitrite Negative Urine Bilirubin Negative Urine Urobilinogen 0.2 Ur Leukocyte Esterase Negative Urine WBC (Auto) 3 Urine RBC (Auto) 0-2 Urine Casts (Auto) 4 U Epithel Cells (Auto) 3.6 Urine Bacteria (Auto) 41.1 Ur Random Creatinine Ur Random Sodium Salicylates Opiates Screen Methadone Screen Acetaminophen Barbiturate Screen Phencyclidine Screen Ur Amphetamines Screen MDMA (Ecstasy) Screen Benzodiazepines Screen Cocaine Screen U Marijuana (THC) Screen Alcohol, Quantitative 08/19/19 08/19/19 08/19/19 10:30 12:21 13:54 WBC RBC Hgb Hct MCV MCH MCHC RDW Plt Count MPV Absolute Neuts (auto) Neutrophils % Lymphocytes % Monocytes % Eosinophils % Basophils % Nucleated RBC % Hypochromia Platelet Estimate Polychromasia Poikilocytosis Anisocytosis Microcytosis Macrocytosis PT with INR INR PTT (Actin FS) Anticoagulation Therapy Puncture Site ABG pH ABG pCO2 at Pt Temp ABG pO2 at Pt Temp ABG HCO3 ABG O2 Sat (Measured) ABG O2 Content ABG Base Excess Moisés Test Carboxyhemoglobin Methemoglobin O2 Delivery Device Oxygen Flow Rate Vent Mode Vent Rate Mechanical Rate PEEP Pressure Support Vent Sodium 137 Potassium 5.0 Chloride 105 Carbon Dioxide 22 Anion Gap 10 BUN 83.6 H Creatinine 7.9 H* Est GFR (CKD-EPI)AfAm 10.13 Est GFR (CKD-EPI)NonAf 8.74 POC Glucometer > 600 Random Glucose 1017 H* Hemoglobin A1c % Serum Osmolality Lactic Acid Calcium 7.1 L Phosphorus Magnesium Total Bilirubin AST ALT Alkaline Phosphatase Creatine Kinase Creatine Kinase Index CK-MB (CK-2) Troponin I Total Protein Albumin Triglycerides Lipase Beta-Hydroxybutyrate Urine Color Urine Appearance Urine pH Ur Specific [place] Urine Protein Urine Glucose (UA) Urine Ketones Urine Blood Urine Nitrite Urine Bilirubin Urine Urobilinogen Ur Leukocyte Esterase Urine WBC (Auto) Urine RBC (Auto) Urine Casts (Auto) U Epithel Cells (Auto) Urine Bacteria (Auto) Ur Random Creatinine Ur Random Sodium Salicylates Opiates Screen Negative Methadone Screen Negative Acetaminophen Barbiturate Screen Negative Phencyclidine Screen Negative Ur Amphetamines Screen Negative MDMA (Ecstasy) Screen Negative Benzodiazepines Screen Negative Cocaine Screen Negative U Marijuana (THC) Screen Negative Alcohol, Quantitative 08/19/19 08/19/19 08/19/19 14:43 15:12 15:20 WBC RBC Hgb Hct MCV MCH MCHC RDW Plt Count MPV Absolute Neuts (auto) Neutrophils % Lymphocytes % Monocytes % Eosinophils % Basophils % Nucleated RBC % Hypochromia Platelet Estimate Polychromasia Poikilocytosis Anisocytosis Microcytosis Macrocytosis PT with INR INR PTT (Actin FS) Anticoagulation Therapy No Result Required. Puncture Site Left radial ABG pH 7.19 L* ABG pCO2 at Pt Temp 47.4 H ABG pO2 at Pt Temp 49.0 L* ABG HCO3 17.3 L ABG O2 Sat (Measured) 82.6 L ABG O2 Content 15.6 ABG Base Excess -10.6 L Moisés Test Positive Carboxyhemoglobin Methemoglobin O2 Delivery Device No Result Required. Oxygen Flow Rate 100 Vent Mode No Result Required. Vent Rate No Result Required. Mechanical Rate No Result Required. PEEP Pressure Support Vent No Result Required. Sodium 140 Potassium 4.3 Chloride 108 H Carbon Dioxide 23 Anion Gap 9 BUN 80.4 H Creatinine 7.3 H Est GFR (CKD-EPI)AfAm 11.15 Est GFR (CKD-EPI)NonAf 9.62 POC Glucometer > 600 Random Glucose 935 H* Hemoglobin A1c % Serum Osmolality Lactic Acid Calcium 6.7 L* Phosphorus 1.5 L Magnesium 2.6 H Total Bilirubin AST ALT Alkaline Phosphatase Creatine Kinase Creatine Kinase Index CK-MB (CK-2) Troponin I Total Protein Albumin Triglycerides Lipase Beta-Hydroxybutyrate Urine Color Urine Appearance Urine pH Ur Specific [place] Urine Protein Urine Glucose (UA) Urine Ketones Urine Blood Urine Nitrite Urine Bilirubin Urine Urobilinogen Ur Leukocyte Esterase Urine WBC (Auto) Urine RBC (Auto) Urine Casts (Auto) U Epithel Cells (Auto) Urine Bacteria (Auto) Ur Random Creatinine Ur Random Sodium Salicylates Opiates Screen Methadone Screen Acetaminophen Barbiturate Screen Phencyclidine Screen Ur Amphetamines Screen MDMA (Ecstasy) Screen Benzodiazepines Screen Cocaine Screen U Marijuana (THC) Screen Alcohol, Quantitative 08/19/19 08/19/19 08/19/19 15:20 16:45 17:00 WBC RBC Hgb Hct MCV MCH MCHC RDW Plt Count MPV Absolute Neuts (auto) Neutrophils % Lymphocytes % Monocytes % Eosinophils % Basophils % Nucleated RBC % Hypochromia Platelet Estimate Polychromasia Poikilocytosis Anisocytosis Microcytosis Macrocytosis PT with INR INR PTT (Actin FS) Anticoagulation Therapy No Result Required. Puncture Site Left radial ABG pH 7.20 L ABG pCO2 at Pt Temp 45.5 H ABG pO2 at Pt Temp < 49 L* ABG HCO3 17.0 L ABG O2 Sat (Measured) 81.3 L ABG O2 Content No Result Required. ABG Base Excess -10.7 L Moisés Test Positive Carboxyhemoglobin Methemoglobin O2 Delivery Device [facility]. vent Oxygen Flow Rate 100% Vent Mode A/c Vent Rate 18 Mechanical Rate Yes PEEP 0.0 Pressure Support Vent 500 Sodium 139 Potassium 4.2 Chloride 108 H Carbon Dioxide 21 Anion Gap 11 BUN 80.5 H Creatinine 7.3 H Est GFR (CKD-EPI)AfAm 11.15 Est GFR (CKD-EPI)NonAf 9.62 POC Glucometer Random Glucose 864 H* Hemoglobin A1c % Serum Osmolality Lactic Acid 4.4 H* Calcium 7.0 L Phosphorus Magnesium Total Bilirubin AST ALT Alkaline Phosphatase Creatine Kinase Creatine Kinase Index CK-MB (CK-2) Troponin I Total Protein Albumin Triglycerides Lipase Beta-Hydroxybutyrate Urine Color Urine Appearance Urine pH Ur Specific [place] Urine Protein Urine Glucose (UA) Urine Ketones Urine Blood Urine Nitrite Urine Bilirubin Urine Urobilinogen Ur Leukocyte Esterase Urine WBC (Auto) Urine RBC (Auto) Urine Casts (Auto) U Epithel Cells (Auto) Urine Bacteria (Auto) Ur Random Creatinine Ur Random Sodium Salicylates Opiates Screen Methadone Screen Acetaminophen Barbiturate Screen Phencyclidine Screen Ur Amphetamines Screen MDMA (Ecstasy) Screen Benzodiazepines Screen Cocaine Screen U Marijuana (THC) Screen Alcohol, Quantitative 08/19/19 08/19/19 08/19/19 17:00 18:16 19:59 WBC RBC Hgb Hct MCV MCH MCHC RDW Plt Count MPV Absolute Neuts (auto) Neutrophils % Lymphocytes % Monocytes % Eosinophils % Basophils % Nucleated RBC % Hypochromia Platelet Estimate Polychromasia Poikilocytosis Anisocytosis Microcytosis Macrocytosis PT with INR INR PTT (Actin FS) Anticoagulation Therapy Puncture Site ABG pH ABG pCO2 at Pt Temp ABG pO2 at Pt Temp ABG HCO3 ABG O2 Sat (Measured) ABG O2 Content ABG Base Excess Moisés Test Carboxyhemoglobin Methemoglobin O2 Delivery Device Oxygen Flow Rate Vent Mode Vent Rate Mechanical Rate PEEP Pressure Support Vent Sodium Potassium Chloride Carbon Dioxide Anion Gap BUN Creatinine Est GFR (CKD-EPI)AfAm Est GFR (CKD-EPI)NonAf POC Glucometer > 600 > 600 Random Glucose Hemoglobin A1c % Serum Osmolality Lactic Acid 4.8 H* Calcium Phosphorus Magnesium Total Bilirubin AST ALT Alkaline Phosphatase Creatine Kinase Creatine Kinase Index CK-MB (CK-2) Troponin I Total Protein Albumin Triglycerides Lipase Beta-Hydroxybutyrate Urine Color Urine Appearance Urine pH Ur Specific [place] Urine Protein Urine Glucose (UA) Urine Ketones Urine Blood Urine Nitrite Urine Bilirubin Urine Urobilinogen Ur Leukocyte Esterase Urine WBC (Auto) Urine RBC (Auto) Urine Casts (Auto) U Epithel Cells (Auto) Urine Bacteria (Auto) Ur Random Creatinine Ur Random Sodium Salicylates Opiates Screen Methadone Screen Acetaminophen Barbiturate Screen Phencyclidine Screen Ur Amphetamines Screen MDMA (Ecstasy) Screen Benzodiazepines Screen Cocaine Screen U Marijuana (THC) Screen Alcohol, Quantitative PLAN: BGM Q1HR IV FLUIDS FOR HYPOTENSION AND CORRECTION OF AG INSULIN DRIP TITRATION RESPIRATORY SUPPORT IV ANTIBIOTIC PER ID FOLLOW BMP IN 4HRS
[2019-08-19] MEDS ORDERED: FLUCONAZOLE 400 MG/NS 200 ML IVPB ONE (20:45)
[2019-08-19] MEDS ORDERED: HEPARIN NA (PORCINE) 5,000 UNITS/ML 1ML VIAL IVPUSH PRN ×2 (20:47)
[2019-08-19 20:58] LABS: BLOOD UREA NITROGEN 80.7 mg/dL (7-18); CREATININE 6.8 mg/dL (0.55-1.3); POTASSIUM 3.7 mmol/L (3.5-5.1)
[2019-08-19] MEDS ORDERED: SODIUM PHOSPHATE - 30 MM in SODIUM CHLORIDE 500 ML IVPB ONE (21:00)
[2019-08-19] MEDS ORDERED: HEPARIN - 25,000 UNIT in SODIUM CHLORIDE 495 ML IV SCH ×2 (21:00→22:38)
[2019-08-19] MEDS: MUPIROCIN 2% TOPICAL OINTMENT FOR DECOLONIZATION NS SCH (21:51)
[2019-08-19] MEDS: CHLORHEXIDINE GLUCONATE 4% CLEANSER FOR DECOLONIZATION TP SCH (21:52)
[2019-08-19] MEDS ORDERED: HEPARIN SOD,PORK IN 0.45% NACL 25,000 UNITS/500 ML INFUS.BAG IVPB SCH (22:37)
[2019-08-19] MEDS: VECURONIUM BROMIDE 50 MG in DEXTROSE 5%-WATER - 250 ML IVPB SCH (22:51)
--- NOTE | 2019-08-20 | CON.CARD ---
Consult Consult Specialty:: cardiology Reason for Consultation:: cardiac arrest; DKA - History of Present Illness Chief Complaint: Intubated; Unresponsive History of Present Illness: Mr. Lucas is a 24 yr old black man with PM history of Down's syndrome, morbid obesity, came to ER complaining of altered mental status. Patient was unable to give history, but at baseline reportedly normally would be able to. Patient's mother at bedside reported that he had been vomiting clear liquids for the past two days, but had not been complaining of abdominal pain. Denied fevers, chills. Denied reports of chest pain and shortness of breath. Patient's mother took him to [facility] prior evening after he had a syncopal episode while getting out of bed. No sick contacts. Up to date on vaccinations. No prior hospitalizations. Mother reported that his labs were normal and he was discharged after having normal labs and receiving 1L NS. Here, in ER, pt was found to have blood glucose 1,642 (?though not known to be diabetic). This morning, he became hypotensive, then had to be resusitated, including cardiac compressions (rhythm at the time unclear). Now intubated, with periods of agitation requiring restraints. - History Source History Provided By: Medical Record Limitations to Obtaining History: Unresponsive - Past Medical History [employer]: Yes: Other (Down syndrome) Cardio/Vascular: Yes: CHF Pulmonary: Yes: Sleep Apnea (r/o) - Alcohol/Substance Use Hx Alcohol Use: No - Smoking History Smoking history: Never smoked - Social History Usual Living Arrangement: With Parent History of Recent Travel: No Home Medications - Allergies Allergies/Adverse Reactions: Allergies Allergy/AdvReac Type Severity Reaction Status Date / Time No Known Allergies Allergy Verified 08/19/19 03:07 - Home Medications Home Medications: Ambulatory Orders NK [No Known Home Medication] 08/19/19 Review of Systems Unable to obtain ROS, reason: unresponsive; Down's synd - Risk Factors Known Risk Factors: Yes: Diabetes Mellitus, Gender, Physical Inactivity, Race, Other (Down's syndrome; morbid obesity;) Vital Signs: Vital Signs Temperature 98.2 F 08/19/19 18:00 Pulse Rate 133 H 08/19/19 21:00 Respiratory Rate 24 H 08/19/19 21:29 Blood Pressure 83/38 L 08/19/19 21:00 O2 Sat by Pulse Oximetry (%) 78 L 08/19/19 21:29 Constitutional: Yes: Obese Eyes: Yes: WNL HENT: Yes: WNL Neck: Yes: Decreased ROM, Other (problematic assessing JVD (anatomy; intubated)) Respiratory: Yes: Diminished, Mechanically Ventilated Gastrointestinal: Yes: Abdomen, Obese Renal/: Yes: Carey Present. No: Anuria Cardiovascular: Yes: Tachycardia Heart Sounds: Yes: S1, S2 Musculoskeletal: Yes: Muscle Weakness Extremities: Yes: Deformity Edema: No Peripheral Pulses WNL: Yes Neurological: Yes: Weakness Psychiatric: Yes: Other - Other Data Labs, Other Data: CBC, BMP 08/19/19 04:05 08/19/19 20:05 INR, PTT INR 1.20 (0.83-1.09) H 08/19/19 04:05 Troponin, BNP 08/19/19 04:05 Troponin I < 0.02 Troponin, BNP 08/19/19 04:05 Troponin I < 0.02 Abnormal Lab Results 08/19/19 08/19/19 08/19/19 08:15 08:40 08:40 RBC Plt Count MPV PTT (Actin FS) ABG pH ABG pCO2 at Pt Temp ABG pO2 at Pt Temp ABG HCO3 ABG O2 Sat (Measured) ABG Base Excess Chloride Carbon Dioxide Anion Gap BUN Creatinine Random Glucose Hemoglobin A1c % Serum Osmolality Lactic Acid Calcium Phosphorus Magnesium 3.4 H Triglycerides Lipase 72228 H Beta-Hydroxybutyrate Urine Protein 1+ H Urine Glucose (UA) 3+ H Urine Ketones Trace H Urine Blood 2+ H Ur Random Sodium 08/19/19 08/19/19 08/19/19 08:40 08:40 08:40 RBC Plt Count MPV PTT (Actin FS) ABG pH ABG pCO2 at Pt Temp ABG pO2 at Pt Temp ABG HCO3 ABG O2 Sat (Measured) ABG Base Excess Chloride Carbon Dioxide 15 L Anion Gap 23 H BUN 87.9 H Creatinine 7.0 H Random Glucose 1293 H* Hemoglobin A1c % 13.0 H Serum Osmolality Lactic Acid Calcium 7.7 L Phosphorus Magnesium Triglycerides Lipase Beta-Hydroxybutyrate > 46.0 H Urine Protein Urine Glucose (UA) Urine Ketones Urine Blood Ur Random Sodium 12 L 08/19/19 08/19/19 08/19/19 08:40 08:42 10:06 RBC Plt Count MPV PTT (Actin FS) ABG pH ABG pCO2 at Pt Temp ABG pO2 at Pt Temp ABG HCO3 ABG O2 Sat (Measured) ABG Base Excess Chloride Carbon Dioxide 17 L Anion Gap 17 H BUN 87.1 H Creatinine 7.3 H Random Glucose 1157 H* Hemoglobin A1c % Serum Osmolality 416 H Lactic Acid 2.2 H* Calcium 7.6 L Phosphorus Magnesium Triglycerides 492 H Lipase Beta-Hydroxybutyrate Urine Protein Urine Glucose (UA) Urine Ketones Urine Blood Ur Random Sodium 08/19/19 08/19/19 08/19/19 10:20 10:30 13:54 RBC Plt Count MPV PTT (Actin FS) ABG pH 7.22 L ABG pCO2 at Pt Temp ABG pO2 at Pt Temp 50.8 L ABG HCO3 16.4 L ABG O2 Sat (Measured) 85.7 L ABG Base Excess -10.6 L Chloride Carbon Dioxide Anion Gap BUN 83.6 H Creatinine 7.9 H* Random Glucose 1017 H* Hemoglobin A1c % Serum Osmolality Lactic Acid Calcium 7.1 L Phosphorus Magnesium Triglycerides Lipase Beta-Hydroxybutyrate Urine Protein 1+ H Urine Glucose (UA) 3+ H Urine Ketones Trace H Urine Blood 2+ H Ur Random Sodium 08/19/19 08/19/19 08/19/19 14:43 15:20 15:20 RBC Plt Count MPV PTT (Actin FS) ABG pH 7.19 L* ABG pCO2 at Pt Temp 47.4 H ABG pO2 at Pt Temp 49.0 L* ABG HCO3 17.3 L ABG O2 Sat (Measured) 82.6 L ABG Base Excess -10.6 L Chloride 108 H Carbon Dioxide Anion Gap BUN 80.4 H Creatinine 7.3 H Random Glucose 935 H* Hemoglobin A1c % Serum Osmolality Lactic Acid 4.4 H* Calcium 6.7 L* Phosphorus 1.5 L Magnesium 2.6 H Triglycerides Lipase Beta-Hydroxybutyrate Urine Protein Urine Glucose (UA) Urine Ketones Urine Blood Ur Random Sodium 08/19/19 08/19/19 08/19/19 16:45 17:00 17:00 RBC Plt Count MPV PTT (Actin FS) ABG pH 7.20 L ABG pCO2 at Pt Temp 45.5 H ABG pO2 at Pt Temp < 49 L* ABG HCO3 17.0 L ABG O2 Sat (Measured) 81.3 L ABG Base Excess -10.7 L Chloride 108 H Carbon Dioxide Anion Gap BUN 80.5 H Creatinine 7.3 H Random Glucose 864 H* Hemoglobin A1c % Serum Osmolality Lactic Acid 4.8 H* Calcium 7.0 L Phosphorus Magnesium Triglycerides Lipase Beta-Hydroxybutyrate Urine Protein Urine Glucose (UA) Urine Ketones Urine Blood Ur Random Sodium 08/19/19 08/20/19 08/20/19 20:05 00:00 00:00 RBC Plt Count MPV PTT (Actin FS) ABG pH ABG pCO2 at Pt Temp ABG pO2 at Pt Temp ABG HCO3 ABG O2 Sat (Measured) ABG Base Excess Chloride 112 H 114 H Carbon Dioxide 20 L 20 L Anion Gap BUN 80.7 H 77.6 H Creatinine 6.8 H 6.6 H Random Glucose 674 H* 483 H* Hemoglobin A1c % Serum Osmolality Lactic Acid 4.3 H* Calcium 7.0 L 6.9 L* Phosphorus Magnesium Triglycerides Lipase Beta-Hydroxybutyrate Urine Protein Urine Glucose (UA) Urine Ketones Urine Blood Ur Random Sodium 08/20/19 08/20/19 08/20/19 00:00 06:50 07:00 RBC 3.98 L Plt Count 42 L D MPV 12.3 H PTT (Actin FS) 40.2 H ABG pH 7.21 L ABG pCO2 at Pt Temp 46.2 H ABG pO2 at Pt Temp < 49 L* ABG HCO3 17.9 L ABG O2 Sat (Measured) 77.3 L ABG Base Excess -9.4 L Chloride Carbon Dioxide Anion Gap BUN Creatinine Random Glucose Hemoglobin A1c % Serum Osmolality Lactic Acid Calcium Phosphorus Magnesium Triglycerides Lipase Beta-Hydroxybutyrate Urine Protein Urine Glucose (UA) Urine Ketones Urine Blood Ur Random Sodium Echo: Report Reviewed Ejection Fraction %: LVEF > or = 40 % Imaging - Results Chest X-ray: Image Reviewed EKG: Image Reviewed (sinus tachycardia) Other: Image Reviewed (telemetry: NSR; no arrhythmias) Problem List - Problems (1) Acute respiratory failure Code(s): J96.00 - ACUTE RESPIRATORY FAILURE, UNSP W HYPOXIA OR HYPERCAPNIA (2) Diabetes mellitus Code(s): E11.9 - TYPE 2 DIABETES MELLITUS WITHOUT COMPLICATIONS (3) Hyperkalemia Assessment/Plan: 6.5-->now 4.3. Code(s): E87.5 - HYPERKALEMIA (4) Diastolic CHF Code(s): I50.30 - UNSPECIFIED DIASTOLIC (CONGESTIVE) HEART FAILURE (5) Cardiac arrest Assessment/Plan: On vasopressors (norepinephrine and vasopressin; midazolam, neosynephrine). Received ?several liters IVF in past 24 hours; f/u Is and Os, dailiy weight, BUN /Cr, electrolytes. F/u workup done the previous day at [facility]. Intubated; O2, bronchodilators, steroids, antibiotics per ID, broadband engineer. First TNI < 0.02; f/u serially. EKG: sinus tachycardia. ECHO: limited study; normal LVEF (ideally, repeat when able to position pt for better acoustic windows). F/u past hx, as Down's pts have increased risk for cardiopulmonary abnormalities, including ASD, MVP/MR, pulmonary HTN. Code(s): I46.9 - CARDIAC ARREST, CAUSE UNSPECIFIED (6) Renal dysfunction Code(s): N28.9 - DISORDER OF KIDNEY AND URETER, UNSPECIFIED Assessment/Plan CCU time spent: 70 minutes
[2019-08-20] MEDS ORDERED: MEROPENEM 1 GM VIAL (RESTRICTED TO ID) IVPB ONE ×2 (00:28→16:12)
[2019-08-20] MEDS ORDERED: DEXTROSE 5%-WATER 100 ML IVPB ONE ×2 (00:28→16:12)
[2019-08-20] MEDS: HYDROCORTISONE SOD SUCCINATE 100 MG/2 ML VIAL IVPUSH SCH ×5 (00:38→23:39)
[2019-08-20 01:36] LABS: HEMATOCRIT 37.9 % (35.4-49); HEMOGLOBIN 12.4 GM/dL (11.7-16.9); MCH 31.1 pg (25.7-33.7); MCHC 32.7 g/dl (32.0-35.9); MEAN CELL VOLUME 95.3 fl (80-96); MEAN PLT VOLUME 12.3 fl (7.5-11.1); PLATELET COUNT 42 K/MM3 (134-434); RBC 3.98 M/mm3 (4.00-5.60); RDW 15.6 % (11.9-15.9); WHITE BLOOD COUNT 4.2 K/mm3 (4.0-10.0)
[2019-08-20] MEDS: CLINDAMYCIN 900 MG PREMIX IVPB 900 MG/50 ML BAG IVPB SCH ×3 (01:42→17:17)
[2019-08-20 02:02] LABS: BLOOD UREA NITROGEN 77.6 mg/dL (7-18); CREATININE 6.6 mg/dL (0.55-1.3); POTASSIUM 3.7 mmol/L (3.5-5.1)
[2019-08-20 02:07] LABS: CALCIUM 6.9 mg/dL (8.5-10.1)
[2019-08-20] MEDS: MEROPENEM 1 GM in DEXTROSE 5%-WATER 100 ML IVPB SCH ×2 (02:10→16:27)
[2019-08-20] MEDS ORDERED: SODIUM CHLORIDE 0.9% 500 ML INFUS.BAG IV ONE (04:35)
[2019-08-20] MEDS ORDERED: INSULIN REGULAR 100 UNITS in SODIUM CHLORIDE 99 ML IVPB SCH (05:00)
[2019-08-20 07:06] LABS: ARTERIAL BLD GAS O2 SATURATION 77.3 % (95-98); ARTERIAL BLOOD GAS BASE EXCESS -9.4 meq/l (-2-2); ARTERIAL BLOOD GAS PCO2 46.2 mmHg (35-45); ARTERIAL BLOOD GAS pH 7.21 (7.35-7.45)
[2019-08-20 07:15] LABS: ARTERIAL BLOOD GAS PO2 < 49 mmHg (80-100)
[2019-08-20 07:41] LABS: BASO % 0.5 % (0-2.0); EOS % 0.4 % (0-4.5); HEMATOCRIT 35.2 % (35.4-49); HEMOGLOBIN 11.6 GM/dL (11.7-16.9); LYMPH % 8.4 % (8-40); MCH 31.1 pg (25.7-33.7); MCHC 32.9 g/dl (32.0-35.9); MEAN CELL VOLUME 94.3 fl (80-96); MONO % 6.5 % (3.8-10.2); NEUT % 84.2 % (42.8-82.8); RBC 3.73 M/mm3 (4.00-5.60); RDW 15.5 % (11.9-15.9); WHITE BLOOD COUNT 9.9 K/mm3 (4.0-10.0)
[2019-08-20] MEDS ORDERED: CALCIUM GLUCONATE 10% - 1,000 MG/10 ML VIAL IVPB ONE ×2 (07:57→15:48)
[2019-08-20] MEDS: KCL 10 MEQ IVPB 10 MEQ/100 ML INFUS.BAG IVPB SCH ×2 (08:24→09:26)
[2019-08-20 08:33] LABS: ALBUMIN 1.8 g/dl (3.4-5.0); BILIRUBIN,TOTAL 0.3 mg/dL (0.2-1); BLOOD UREA NITROGEN 76.4 mg/dL (7-18); CREATININE 6.1 mg/dL (0.55-1.3); MAGNESIUM 1.7 mg/dL (1.8-2.4); PHOSPHOROUS 2.1 mg/dL (2.5-4.9); POTASSIUM 4.6 mmol/L (3.5-5.1)
[2019-08-20] MEDS ORDERED: SODIUM PHOSPHATE - 15 MM in SODIUM CHLORIDE 250 ML IVPB ONE (08:48)
[2019-08-20] MEDS ORDERED: MAGNESIUM SULF 50% (8.12 MEQ/2 ML-1 GM VIAL) IVPB ONE (08:49)
[2019-08-20 08:51] LABS: PLATELET COUNT 34 K/MM3 (134-434)
[2019-08-20] MEDS ORDERED: NOREPINEPHRINE BITARTRATE 4 MG/4 ML ML IV ONE ×2 (09:09→14:07)
[2019-08-20 09:11] LABS: CALCIUM 6.3 mg/dL (8.5-10.1)
[2019-08-20] MEDS ORDERED: INSULIN (LEVEMIR) 100 UNITS/ML UNITS SQ ONE (09:12)
[2019-08-20] MEDS ORDERED: CALCIUM CHLORIDE 1 GM/10 ML *DISP.SYRIN IVPB ONE (09:14)
[2019-08-20] MEDS ORDERED: D5-1/2NS+20 MEQ KCL - 20 MEQ/1,000 ML INFUS.BAG IV SCH (09:15)
[2019-08-20] MEDS ORDERED: VANCOMYCIN 1 GRAM (PRE-DOCKED) 1,000 MG/250 ML BAG IVPB ONE (09:36)
--- NOTE | 2019-08-20 09:44 | PN ---
Physical Exam: SUBJECTIVE: Patient seen and examined. Still saturating poorly less than 80s, on 3 pressors. Reduced urine output. No fevers documented, negative cxs, CXR now with ARDS picture. Pt received zosyn, fluconazole, levoflox, vanc, clindamycin, and meropenem yesterday. On a paralytic. ICU team atttempted transfer fro ECMO to a tertiary center which was denied. OBJECTIVE: Vital Signs Period Temp Pulse Resp BP Sys/Stovall Pulse Ox Last 24 Hr 97.2 F-99.2 F 0-141 16-39 58-142/22-116 67-99 Vital Signs Temp 99.2 F 08/20/19 06:30 Pulse 119 H 08/20/19 06:30 Resp 27 H 08/20/19 06:30 BP 105/49 L 08/20/19 06:30 Pulse Ox 78 L 08/19/19 21:29 Intake & Output 08/19/19 08/19/19 08/20/19 11:59 23:59 11:59 Intake Total 6672 9090.4 Output Total 300 900 Balance -300 5772 9090.4 Weight 112.763 kg Intake: IV 6672 8590.4 Heparin - 25,000 Unit In 240 Normal Saline - 495 ml @ 1,000 UNIT/HR 20 mls/hr IV TITR GAUTAM Rx#: [id number] Levophed - 4,000 Mcg In 185 2700 D5w - 496 ml @ 5 MCG/MIN 37.5 mls/hr IV TITR GAUTAM Rx#:[id number] MIDAZOLAM 100MG/100ML-0.9 24 36 %NACL 100 mg In 100 ml @ 1 MG/HR 1 mls/hr IVPB TITR GAUTAM Rx#:[id number] NOVOLIN R VIAL *For 100 IVPUSH or IV DRIP Only* 100 UNITS In Normal Saline - 99 ml @ 0.14 UNITS/KG/HR 17.39 mls/hr IVPB TITR GAUTAM Rx#: [id number] NOVOLIN R VIAL *For 180 IVPUSH or IV DRIP Only* 100 UNITS In Normal Saline - 99 ml @ 10 UNITS /HR 10 mls/hr IVPB TITR GAUTAM Rx#:[id number] NS+20 MEQ KCL - 20 meq In 1000 1,000 ml @ 200 mls/hr IV ASDIR GAUTAM Rx#: [id number] Taras-Synephrine - 20,055 056 3900 Mcg In Normal Saline - 248 ml @ 100 MCG/MIN 75 mls/hr IVPB ASDIR GAUTAM Rx# :[id number] Normal Saline - 1,000 ml 2000 2400 @ 1000 mls/hr IV ASDIR STA Rx#:[id number] Normal Saline - 1,000 ml 1000 @ 1000 mls/hr IV ASDIR STA Rx#:[id number] Normal Saline - 1,000 ml 2000 1000 @ 1000 mls/hr IV ASDIR STA Rx#:[id number] Pitressin - 50 Units In 24 144 Normal Saline - 97.5 ml @ 2 UNITS/HR 4 mls/hr IVPB ASDIR GAUTAM Rx#: [id number] Vecuronium [place] 50 mg 270.4 In D5w - 250 ml @ 1 MCG/ KG/MIN 33.82 mls/hr IVPB TITR GAUTAM Rx#:[id number] IVPB 500 Output: Urine 300 900 Carey 300 900 Other: Voiding Method Indwelling Catheter # Unmeasured Voids Carey 800 Height 1.6 m Body Mass Index (BMI) 44.0 Weight Measurement Method Estimated by Staff GENERAL: Morbidly obese pt with Down's facies, The patient is sedated and intubated_ AC24/450/100/14 EYES: Miosed ENT: ET tube, large tongue LUNGS: Mechanical breath sounds HEART: Tachycardic S1, S2 ABDOMEN: Soft, obese, reduced bowel sounds EXTREMITIES: 2+ pulses, warm, well-perfused, dependent edema, more UEs. NEUROLOGICAL: Sedated SKIN: dry thigh rashes CBC, BMP 08/20/19 07:00 Laboratory Results - last 24 hr 08/19/19 08/19/19 08/19/19 04:05 08:40 08:40 WBC RBC Hgb Hct MCV MCH MCHC RDW Plt Count MPV Absolute Neuts (auto) Neutrophils % Lymphocytes % Monocytes % Eosinophils % Basophils % Nucleated RBC % Hypochromia 0 Platelet Estimate Decreased Polychromasia 1+ Poikilocytosis 0 Anisocytosis 0 Microcytosis 0 Macrocytosis 1+ PTT (Actin FS) Anticoagulation Therapy Puncture Site ABG pH ABG pCO2 at Pt Temp ABG pO2 at Pt Temp ABG HCO3 ABG O2 Sat (Measured) ABG O2 Content ABG Base Excess Moisés Test O2 Delivery Device Oxygen Flow Rate Vent Mode Vent Rate Mechanical Rate PEEP Pressure Support Vent Sodium Potassium Chloride Carbon Dioxide Anion Gap BUN Creatinine Est GFR (CKD-EPI)AfAm Est GFR (CKD-EPI)NonAf POC Glucometer Random Glucose Hemoglobin A1c % Serum Osmolality Lactic Acid Calcium Phosphorus 3.5 Magnesium 3.4 H Total Bilirubin AST ALT Alkaline Phosphatase Creatine Kinase Creatine Kinase Index CK-MB (CK-2) Total Protein Albumin Triglycerides Lipase 00842 H Beta-Hydroxybutyrate Urine Color Urine Appearance Urine pH Ur Specific [place] Urine Protein Urine Glucose (UA) Urine Ketones Urine Blood Urine Nitrite Urine Bilirubin Urine Urobilinogen Ur Leukocyte Esterase Urine WBC (Auto) Urine RBC (Auto) Urine Casts (Auto) U Epithel Cells (Auto) Urine Bacteria (Auto) Ur Random Creatinine Random Vancomycin Opiates Screen Methadone Screen Barbiturate Screen Phencyclidine Screen Ur Amphetamines Screen MDMA (Ecstasy) Screen Benzodiazepines Screen Cocaine Screen U Marijuana (THC) Screen Alcohol, Quantitative 08/19/19 08/19/19 08/19/19 08:40 08:40 08:40 WBC RBC Hgb Hct MCV MCH MCHC RDW Plt Count MPV Absolute Neuts (auto) Neutrophils % Lymphocytes % Monocytes % Eosinophils % Basophils % Nucleated RBC % Hypochromia Platelet Estimate Polychromasia Poikilocytosis Anisocytosis Microcytosis Macrocytosis PTT (Actin FS) Anticoagulation Therapy Puncture Site ABG pH ABG pCO2 at Pt Temp ABG pO2 at Pt Temp ABG HCO3 ABG O2 Sat (Measured) ABG O2 Content ABG Base Excess Moisés Test O2 Delivery Device Oxygen Flow Rate Vent Mode Vent Rate Mechanical Rate PEEP Pressure Support Vent Sodium 136 Potassium 4.6 Chloride 98 Carbon Dioxide 15 L Anion Gap 23 H BUN 87.9 H Creatinine 7.0 H Est GFR (CKD-EPI)AfAm 11.73 Est GFR (CKD-EPI)NonAf 10.12 POC Glucometer Random Glucose 1293 H* Hemoglobin A1c % 13.0 H Serum Osmolality Lactic Acid Calcium 7.7 L Phosphorus Magnesium Total Bilirubin AST ALT Alkaline Phosphatase Creatine Kinase Creatine Kinase Index CK-MB (CK-2) Total Protein Albumin Triglycerides Lipase Beta-Hydroxybutyrate > 46.0 H Urine Color Urine Appearance Urine pH Ur Specific [place] Urine Protein Urine Glucose (UA) Urine Ketones Urine Blood Urine Nitrite Urine Bilirubin Urine Urobilinogen Ur Leukocyte Esterase Urine WBC (Auto) Urine RBC (Auto) Urine Casts (Auto) U Epithel Cells (Auto) Urine Bacteria (Auto) Ur Random Creatinine 73.0 Random Vancomycin Opiates Screen Methadone Screen Barbiturate Screen Phencyclidine Screen Ur Amphetamines Screen MDMA (Ecstasy) Screen Benzodiazepines Screen Cocaine Screen U Marijuana (THC) Screen Alcohol, Quantitative 08/19/19 08/19/19 08/19/19 08:40 08:42 10:06 WBC RBC Hgb Hct MCV MCH MCHC RDW Plt Count MPV Absolute Neuts (auto) Neutrophils % Lymphocytes % Monocytes % Eosinophils % Basophils % Nucleated RBC % Hypochromia Platelet Estimate Polychromasia Poikilocytosis Anisocytosis Microcytosis Macrocytosis PTT (Actin FS) Anticoagulation Therapy Puncture Site ABG pH ABG pCO2 at Pt Temp ABG pO2 at Pt Temp ABG HCO3 ABG O2 Sat (Measured) ABG O2 Content ABG Base Excess Moisés Test O2 Delivery Device Oxygen Flow Rate Vent Mode Vent Rate Mechanical Rate PEEP Pressure Support Vent Sodium 136 Potassium 4.3 Chloride 102 Carbon Dioxide 17 L Anion Gap 17 H BUN 87.1 H Creatinine 7.3 H Est GFR (CKD-EPI)AfAm 11.15 Est GFR (CKD-EPI)NonAf 9.62 POC Glucometer Random Glucose 1157 H* Hemoglobin A1c % Serum Osmolality 416 H Lactic Acid 2.2 H* Calcium 7.6 L Phosphorus Magnesium Total Bilirubin AST ALT Alkaline Phosphatase Creatine Kinase Creatine Kinase Index CK-MB (CK-2) Total Protein Albumin Triglycerides 492 H Lipase Beta-Hydroxybutyrate Urine Color Urine Appearance Urine pH Ur Specific [place] Urine Protein Urine Glucose (UA) Urine Ketones Urine Blood Urine Nitrite Urine Bilirubin Urine Urobilinogen Ur Leukocyte Esterase Urine WBC (Auto) Urine RBC (Auto) Urine Casts (Auto) U Epithel Cells (Auto) Urine Bacteria (Auto) Ur Random Creatinine Random Vancomycin Opiates Screen Methadone Screen Barbiturate Screen Phencyclidine Screen Ur Amphetamines Screen MDMA (Ecstasy) Screen Benzodiazepines Screen Cocaine Screen U Marijuana (THC) Screen Alcohol, Quantitative 08/19/19 08/19/19 08/19/19 10:14 10:20 10:23 WBC RBC Hgb Hct MCV MCH MCHC RDW Plt Count MPV Absolute Neuts (auto) Neutrophils % Lymphocytes % Monocytes % Eosinophils % Basophils % Nucleated RBC % Hypochromia Platelet Estimate Polychromasia Poikilocytosis Anisocytosis Microcytosis Macrocytosis PTT (Actin FS) Anticoagulation Therapy No Result Required. Puncture Site Right radial ABG pH 7.22 L ABG pCO2 at Pt Temp 41.6 ABG pO2 at Pt Temp 50.8 L ABG HCO3 16.4 L ABG O2 Sat (Measured) 85.7 L ABG O2 Content 16.6 ABG Base Excess -10.6 L Moisés Test Positive O2 Delivery Device No Result Required. Oxygen Flow Rate Yes Vent Mode No Result Required. Vent Rate No Result Required. Mechanical Rate No Result Required. PEEP Pressure Support Vent No Result Required. Sodium Potassium Chloride Carbon Dioxide Anion Gap BUN Creatinine Est GFR (CKD-EPI)AfAm Est GFR (CKD-EPI)NonAf POC Glucometer > 600 Random Glucose Hemoglobin A1c % Serum Osmolality Lactic Acid Calcium Phosphorus Magnesium Total Bilirubin AST ALT Alkaline Phosphatase Creatine Kinase Creatine Kinase Index CK-MB (CK-2) Total Protein Albumin Triglycerides Lipase Beta-Hydroxybutyrate Urine Color Urine Appearance Urine pH Ur Specific [place] Urine Protein Urine Glucose (UA) Urine Ketones Urine Blood Urine Nitrite Urine Bilirubin Urine Urobilinogen Ur Leukocyte Esterase Urine WBC (Auto) Urine RBC (Auto) Urine Casts (Auto) U Epithel Cells (Auto) Urine Bacteria (Auto) Ur Random Creatinine Random Vancomycin Opiates Screen Methadone Screen Barbiturate Screen Phencyclidine Screen Ur Amphetamines Screen MDMA (Ecstasy) Screen Benzodiazepines Screen Cocaine Screen U Marijuana (THC) Screen Alcohol, Quantitative < 3.0 08/19/19 08/19/19 08/19/19 10:30 10:30 12:21 WBC RBC Hgb Hct MCV MCH MCHC RDW Plt Count MPV Absolute Neuts (auto) Neutrophils % Lymphocytes % Monocytes % Eosinophils % Basophils % Nucleated RBC % Hypochromia Platelet Estimate Polychromasia Poikilocytosis Anisocytosis Microcytosis Macrocytosis PTT (Actin FS) Anticoagulation Therapy Puncture Site ABG pH ABG pCO2 at Pt Temp ABG pO2 at Pt Temp ABG HCO3 ABG O2 Sat (Measured) ABG O2 Content ABG Base Excess Moisés Test O2 Delivery Device Oxygen Flow Rate Vent Mode Vent Rate Mechanical Rate PEEP Pressure Support Vent Sodium Potassium Chloride Carbon Dioxide Anion Gap BUN Creatinine Est GFR (CKD-EPI)AfAm Est GFR (CKD-EPI)NonAf POC Glucometer > 600 Random Glucose Hemoglobin A1c % Serum Osmolality Lactic Acid Calcium Phosphorus Magnesium Total Bilirubin AST ALT Alkaline Phosphatase Creatine Kinase Creatine Kinase Index CK-MB (CK-2) Total Protein Albumin Triglycerides Lipase Beta-Hydroxybutyrate Urine Color Yellow Urine Appearance Cloudy Urine pH 5.0 Ur Specific [place] 1.028 Urine Protein 1+ H Urine Glucose (UA) 3+ H Urine Ketones Trace H Urine Blood 2+ H Urine Nitrite Negative Urine Bilirubin Negative Urine Urobilinogen 0.2 Ur Leukocyte Esterase Negative Urine WBC (Auto) 3 Urine RBC (Auto) 0-2 Urine Casts (Auto) 4 U Epithel Cells (Auto) 3.6 Urine Bacteria (Auto) 41.1 Ur Random Creatinine Random Vancomycin Opiates Screen Negative Methadone Screen Negative Barbiturate Screen Negative Phencyclidine Screen Negative Ur Amphetamines Screen Negative MDMA (Ecstasy) Screen Negative Benzodiazepines Screen Negative Cocaine Screen Negative U Marijuana (THC) Screen Negative Alcohol, Quantitative 08/19/19 08/19/19 08/19/19 13:54 14:43 15:12 WBC RBC Hgb Hct MCV MCH MCHC RDW Plt Count MPV Absolute Neuts (auto) Neutrophils % Lymphocytes % Monocytes % Eosinophils % Basophils % Nucleated RBC % Hypochromia Platelet Estimate Polychromasia Poikilocytosis Anisocytosis Microcytosis Macrocytosis PTT (Actin FS) Anticoagulation Therapy No Result Required. Puncture Site Left radial ABG pH 7.19 L* ABG pCO2 at Pt Temp 47.4 H ABG pO2 at Pt Temp 49.0 L* ABG HCO3 17.3 L ABG O2 Sat (Measured) 82.6 L ABG O2 Content 15.6 ABG Base Excess -10.6 L Moisés Test Positive O2 Delivery Device No Result Required. Oxygen Flow Rate 100 Vent Mode No Result Required. Vent Rate No Result Required. Mechanical Rate No Result Required. PEEP Pressure Support Vent No Result Required. Sodium 137 Potassium 5.0 Chloride 105 Carbon Dioxide 22 Anion Gap 10 BUN 83.6 H Creatinine 7.9 H* Est GFR (CKD-EPI)AfAm 10.13 Est GFR (CKD-EPI)NonAf 8.74 POC Glucometer > 600 Random Glucose 1017 H* Hemoglobin A1c % Serum Osmolality Lactic Acid Calcium 7.1 L Phosphorus Magnesium Total Bilirubin AST ALT Alkaline Phosphatase Creatine Kinase Creatine Kinase Index CK-MB (CK-2) Total Protein Albumin Triglycerides Lipase Beta-Hydroxybutyrate Urine Color Urine Appearance Urine pH Ur Specific [place] Urine Protein Urine Glucose (UA) Urine Ketones Urine Blood Urine Nitrite Urine Bilirubin Urine Urobilinogen Ur Leukocyte Esterase Urine WBC (Auto) Urine RBC (Auto) Urine Casts (Auto) U Epithel Cells (Auto) Urine Bacteria (Auto) Ur Random Creatinine Random Vancomycin Opiates Screen Methadone Screen Barbiturate Screen Phencyclidine Screen Ur Amphetamines Screen MDMA (Ecstasy) Screen Benzodiazepines Screen Cocaine Screen U Marijuana (THC) Screen Alcohol, Quantitative 08/19/19 08/19/19 08/19/19 15:20 15:20 16:45 WBC RBC Hgb Hct MCV MCH MCHC RDW Plt Count MPV Absolute Neuts (auto) Neutrophils % Lymphocytes % Monocytes % Eosinophils % Basophils % Nucleated RBC % Hypochromia Platelet Estimate Polychromasia Poikilocytosis Anisocytosis Microcytosis Macrocytosis PTT (Actin FS) Anticoagulation Therapy No Result Required. Puncture Site Left radial ABG pH 7.20 L ABG pCO2 at Pt Temp 45.5 H ABG pO2 at Pt Temp < 49 L* ABG HCO3 17.0 L ABG O2 Sat (Measured) 81.3 L ABG O2 Content No Result Required. ABG Base Excess -10.7 L Moisés Test Positive O2 Delivery Device Mech. vent Oxygen Flow Rate 100% Vent Mode A/c Vent Rate 18 Mechanical Rate Yes PEEP 0.0 Pressure Support Vent 500 Sodium 140 Potassium 4.3 Chloride 108 H Carbon Dioxide 23 Anion Gap 9 BUN 80.4 H Creatinine 7.3 H Est GFR (CKD-EPI)AfAm 11.15 Est GFR (CKD-EPI)NonAf 9.62 POC Glucometer Random Glucose 935 H* Hemoglobin A1c % Serum Osmolality Lactic Acid 4.4 H* Calcium 6.7 L* Phosphorus 1.5 L Magnesium 2.6 H Total Bilirubin AST ALT Alkaline Phosphatase Creatine Kinase Creatine Kinase Index CK-MB (CK-2) Total Protein Albumin Triglycerides Lipase Beta-Hydroxybutyrate Urine Color Urine Appearance Urine pH Ur Specific [place] Urine Protein Urine Glucose (UA) Urine Ketones Urine Blood Urine Nitrite Urine Bilirubin Urine Urobilinogen Ur Leukocyte Esterase Urine WBC (Auto) Urine RBC (Auto) Urine Casts (Auto) U Epithel Cells (Auto) Urine Bacteria (Auto) Ur Random Creatinine Random Vancomycin Opiates Screen Methadone Screen Barbiturate Screen Phencyclidine Screen Ur Amphetamines Screen MDMA (Ecstasy) Screen Benzodiazepines Screen Cocaine Screen U Marijuana (THC) Screen Alcohol, Quantitative 08/19/19 08/19/19 08/19/19 17:00 17:00 18:16 WBC RBC Hgb Hct MCV MCH MCHC RDW Plt Count MPV Absolute Neuts (auto) Neutrophils % Lymphocytes % Monocytes % Eosinophils % Basophils % Nucleated RBC % Hypochromia Platelet Estimate Polychromasia Poikilocytosis Anisocytosis Microcytosis Macrocytosis PTT (Actin FS) Anticoagulation Therapy Puncture Site ABG pH ABG pCO2 at Pt Temp ABG pO2 at Pt Temp ABG HCO3 ABG O2 Sat (Measured) ABG O2 Content ABG Base Excess Moisés Test O2 Delivery Device Oxygen Flow Rate Vent Mode Vent Rate Mechanical Rate PEEP Pressure Support Vent Sodium 139 Potassium 4.2 Chloride 108 H Carbon Dioxide 21 Anion Gap 11 BUN 80.5 H Creatinine 7.3 H Est GFR (CKD-EPI)AfAm 11.15 Est GFR (CKD-EPI)NonAf 9.62 POC Glucometer > 600 Random Glucose 864 H* Hemoglobin A1c % Serum Osmolality Lactic Acid 4.8 H* Calcium 7.0 L Phosphorus Magnesium Total Bilirubin AST ALT Alkaline Phosphatase Creatine Kinase Creatine Kinase Index CK-MB (CK-2) Total Protein Albumin Triglycerides Lipase Beta-Hydroxybutyrate Urine Color Urine Appearance Urine pH Ur Specific [place] Urine Protein Urine Glucose (UA) Urine Ketones Urine Blood Urine Nitrite Urine Bilirubin Urine Urobilinogen Ur Leukocyte Esterase Urine WBC (Auto) Urine RBC (Auto) Urine Casts (Auto) U Epithel Cells (Auto) Urine Bacteria (Auto) Ur Random Creatinine Random Vancomycin Opiates Screen Methadone Screen Barbiturate Screen Phencyclidine Screen Ur Amphetamines Screen MDMA (Ecstasy) Screen Benzodiazepines Screen Cocaine Screen U Marijuana (THC) Screen Alcohol, Quantitative 08/19/19 08/19/19 08/19/19 19:59 20:05 21:11 WBC RBC Hgb Hct MCV MCH MCHC RDW Plt Count MPV Absolute Neuts (auto) Neutrophils % Lymphocytes % Monocytes % Eosinophils % Basophils % Nucleated RBC % Hypochromia Platelet Estimate Polychromasia Poikilocytosis Anisocytosis Microcytosis Macrocytosis PTT (Actin FS) Anticoagulation Therapy Puncture Site ABG pH ABG pCO2 at Pt Temp ABG pO2 at Pt Temp ABG HCO3 ABG O2 Sat (Measured) ABG O2 Content ABG Base Excess Moisés Test O2 Delivery Device Oxygen Flow Rate Vent Mode Vent Rate Mechanical Rate PEEP Pressure Support Vent Sodium 145 Potassium 3.7 Chloride 112 H Carbon Dioxide 20 L Anion Gap 13 BUN 80.7 H Creatinine 6.8 H Est GFR (CKD-EPI)AfAm 12.14 Est GFR (CKD-EPI)NonAf 10.48 POC Glucometer > 600 > 600 Random Glucose 674 H* Hemoglobin A1c % Serum Osmolality Lactic Acid Calcium 7.0 L Phosphorus Magnesium Total Bilirubin AST ALT Alkaline Phosphatase Creatine Kinase Creatine Kinase Index CK-MB (CK-2) Total Protein Albumin Triglycerides Lipase Beta-Hydroxybutyrate Urine Color Urine Appearance Urine pH Ur Specific [place] Urine Protein Urine Glucose (UA) Urine Ketones Urine Blood Urine Nitrite Urine Bilirubin Urine Urobilinogen Ur Leukocyte Esterase Urine WBC (Auto) Urine RBC (Auto) Urine Casts (Auto) U Epithel Cells (Auto) Urine Bacteria (Auto) Ur Random Creatinine Random Vancomycin Opiates Screen Methadone Screen Barbiturate Screen Phencyclidine Screen Ur Amphetamines Screen MDMA (Ecstasy) Screen Benzodiazepines Screen Cocaine Screen U Marijuana (THC) Screen Alcohol, Quantitative 08/19/19 08/19/19 08/20/19 22:09 23:07 00:00 WBC RBC Hgb Hct MCV MCH MCHC RDW Plt Count MPV Absolute Neuts (auto) Neutrophils % Lymphocytes % Monocytes % Eosinophils % Basophils % Nucleated RBC % Hypochromia Platelet Estimate Polychromasia Poikilocytosis Anisocytosis Microcytosis Macrocytosis PTT (Actin FS) Anticoagulation Therapy Puncture Site ABG pH ABG pCO2 at Pt Temp ABG pO2 at Pt Temp ABG HCO3 ABG O2 Sat (Measured) ABG O2 Content ABG Base Excess Moisés Test O2 Delivery Device Oxygen Flow Rate Vent Mode Vent Rate Mechanical Rate PEEP Pressure Support Vent Sodium 145 Potassium 3.7 Chloride 114 H Carbon Dioxide 20 L Anion Gap 11 BUN 77.6 H Creatinine 6.6 H Est GFR (CKD-EPI)AfAm 12.59 Est GFR (CKD-EPI)NonAf 10.86 POC Glucometer 576 531 Random Glucose 483 H* Hemoglobin A1c % Serum Osmolality Lactic Acid Calcium 6.9 L* Phosphorus Magnesium Total Bilirubin AST ALT Alkaline Phosphatase Creatine Kinase Creatine Kinase Index CK-MB (CK-2) Total Protein Albumin Triglycerides Lipase Beta-Hydroxybutyrate Urine Color Urine Appearance Urine pH Ur Specific [place] Urine Protein Urine Glucose (UA) Urine Ketones Urine Blood Urine Nitrite Urine Bilirubin Urine Urobilinogen Ur Leukocyte Esterase Urine WBC (Auto) Urine RBC (Auto) Urine Casts (Auto) U Epithel Cells (Auto) Urine Bacteria (Auto) Ur Random Creatinine Random Vancomycin Opiates Screen Methadone Screen Barbiturate Screen Phencyclidine Screen Ur Amphetamines Screen MDMA (Ecstasy) Screen Benzodiazepines Screen Cocaine Screen U Marijuana (THC) Screen Alcohol, Quantitative 08/20/19 08/20/19 08/20/19 00:00 00:00 00:05 WBC 4.2 RBC 3.98 L Hgb 12.4 Hct 37.9 D MCV 95.3 D MCH 31.1 MCHC 32.7 RDW 15.6 D Plt Count 42 L D MPV 12.3 H Absolute Neuts (auto) Neutrophils % Lymphocytes % Monocytes % Eosinophils % Basophils % Nucleated RBC % Hypochromia Platelet Estimate Polychromasia Poikilocytosis Anisocytosis Microcytosis Macrocytosis PTT (Actin FS) Anticoagulation Therapy Puncture Site ABG pH ABG pCO2 at Pt Temp ABG pO2 at Pt Temp ABG HCO3 ABG O2 Sat (Measured) ABG O2 Content ABG Base Excess Moisés Test O2 Delivery Device Oxygen Flow Rate Vent Mode Vent Rate Mechanical Rate PEEP Pressure Support Vent Sodium Potassium Chloride Carbon Dioxide Anion Gap BUN Creatinine Est GFR (CKD-EPI)AfAm Est GFR (CKD-EPI)NonAf POC Glucometer 555 Random Glucose Hemoglobin A1c % Serum Osmolality Lactic Acid 4.3 H* Calcium Phosphorus Magnesium Total Bilirubin AST ALT Alkaline Phosphatase Creatine Kinase Creatine Kinase Index CK-MB (CK-2) Total Protein Albumin Triglycerides Lipase Beta-Hydroxybutyrate Urine Color Urine Appearance Urine pH Ur Specific [place] Urine Protein Urine Glucose (UA) Urine Ketones Urine Blood Urine Nitrite Urine Bilirubin Urine Urobilinogen Ur Leukocyte Esterase Urine WBC (Auto) Urine RBC (Auto) Urine Casts (Auto) U Epithel Cells (Auto) Urine Bacteria (Auto) Ur Random Creatinine Random Vancomycin Opiates Screen Methadone Screen Barbiturate Screen Phencyclidine Screen Ur Amphetamines Screen MDMA (Ecstasy) Screen Benzodiazepines Screen Cocaine Screen U Marijuana (THC) Screen Alcohol, Quantitative 08/20/19 08/20/19 08/20/19 02:04 03:13 04:23 WBC RBC Hgb Hct MCV MCH MCHC RDW Plt Count MPV Absolute Neuts (auto) Neutrophils % Lymphocytes % Monocytes % Eosinophils % Basophils % Nucleated RBC % Hypochromia Platelet Estimate Polychromasia Poikilocytosis Anisocytosis Microcytosis Macrocytosis PTT (Actin FS) Anticoagulation Therapy Puncture Site ABG pH ABG pCO2 at Pt Temp ABG pO2 at Pt Temp ABG HCO3 ABG O2 Sat (Measured) ABG O2 Content ABG Base Excess Moisés Test O2 Delivery Device Oxygen Flow Rate Vent Mode Vent Rate Mechanical Rate PEEP Pressure Support Vent Sodium Potassium Chloride Carbon Dioxide Anion Gap BUN Creatinine Est GFR (CKD-EPI)AfAm Est GFR (CKD-EPI)NonAf POC Glucometer [phone] Random Glucose Hemoglobin A1c % Serum Osmolality Lactic Acid Calcium Phosphorus Magnesium Total Bilirubin AST ALT Alkaline Phosphatase Creatine Kinase Creatine Kinase Index CK-MB (CK-2) Total Protein Albumin Triglycerides Lipase Beta-Hydroxybutyrate Urine Color Urine Appearance Urine pH Ur Specific [place] Urine Protein Urine Glucose (UA) Urine Ketones Urine Blood Urine Nitrite Urine Bilirubin Urine Urobilinogen Ur Leukocyte Esterase Urine WBC (Auto) Urine RBC (Auto) Urine Casts (Auto) U Epithel Cells (Auto) Urine Bacteria (Auto) Ur Random Creatinine Random Vancomycin Opiates Screen Methadone Screen Barbiturate Screen Phencyclidine Screen Ur Amphetamines Screen MDMA (Ecstasy) Screen Benzodiazepines Screen Cocaine Screen U Marijuana (THC) Screen Alcohol, Quantitative 08/20/19 08/20/19 08/20/19 05:09 06:14 06:50 WBC RBC Hgb Hct MCV MCH MCHC RDW Plt Count MPV Absolute Neuts (auto) Neutrophils % Lymphocytes % Monocytes % Eosinophils % Basophils % Nucleated RBC % Hypochromia Platelet Estimate Polychromasia Poikilocytosis Anisocytosis Microcytosis Macrocytosis PTT (Actin FS) Anticoagulation Therapy Puncture Site Right femoral ABG pH 7.21 L ABG pCO2 at Pt Temp 46.2 H ABG pO2 at Pt Temp < 49 L* ABG HCO3 17.9 L ABG O2 Sat (Measured) 77.3 L ABG O2 Content No Result Required. ABG Base Excess -9.4 L Moisés Test No Result Required. O2 Delivery Device Oxygen Flow Rate 100% Vent Mode A/c vc Vent Rate 24 Mechanical Rate PEEP 14.0 Pressure Support Vent 450 Sodium Potassium Chloride Carbon Dioxide Anion Gap BUN Creatinine Est GFR (CKD-EPI)AfAm Est GFR (CKD-EPI)NonAf POC Glucometer 285 291 Random Glucose Hemoglobin A1c % Serum Osmolality Lactic Acid Calcium Phosphorus Magnesium Total Bilirubin AST ALT Alkaline Phosphatase Creatine Kinase Creatine Kinase Index CK-MB (CK-2) Total Protein Albumin Triglycerides Lipase Beta-Hydroxybutyrate Urine Color Urine Appearance Urine pH Ur Specific [place] Urine Protein Urine Glucose (UA) Urine Ketones Urine Blood Urine Nitrite Urine Bilirubin Urine Urobilinogen Ur Leukocyte Esterase Urine WBC (Auto) Urine RBC (Auto) Urine Casts (Auto) U Epithel Cells (Auto) Urine Bacteria (Auto) Ur Random Creatinine Random Vancomycin Opiates Screen Methadone Screen Barbiturate Screen Phencyclidine Screen Ur Amphetamines Screen MDMA (Ecstasy) Screen Benzodiazepines Screen Cocaine Screen U Marijuana (THC) Screen Alcohol, Quantitative 08/20/19 08/20/19 08/20/19 07:00 07:00 07:00 WBC 9.9 RBC 3.73 L Hgb 11.6 L Hct 35.2 L MCV 94.3 MCH 31.1 MCHC 32.9 RDW 15.5 Plt Count 34 L* MPV 12.0 H Absolute Neuts (auto) 8.3 H Neutrophils % 84.2 H Lymphocytes % 8.4 D Monocytes % 6.5 Eosinophils % 0.4 D Basophils % 0.5 Nucleated RBC % 0 Hypochromia Platelet Estimate Polychromasia Poikilocytosis Anisocytosis Microcytosis Macrocytosis PTT (Actin FS) Anticoagulation Therapy Puncture Site ABG pH ABG pCO2 at Pt Temp ABG pO2 at Pt Temp ABG HCO3 ABG O2 Sat (Measured) ABG O2 Content ABG Base Excess Moisés Test O2 Delivery Device Oxygen Flow Rate Vent Mode Vent Rate Mechanical Rate PEEP Pressure Support Vent Sodium 146 H Potassium 4.6 Chloride 118 H Carbon Dioxide 20 L Anion Gap 8 BUN 76.4 H Creatinine 6.1 H Est GFR (CKD-EPI)AfAm 13.85 Est GFR (CKD-EPI)NonAf 11.95 POC Glucometer Random Glucose 337 H Hemoglobin A1c % Serum Osmolality Lactic Acid Calcium 6.3 L* Phosphorus 2.1 L Magnesium 1.7 L Total Bilirubin 0.3 AST 131 H ALT 56 Alkaline Phosphatase 69 Creatine Kinase 5026 H Creatine Kinase Index 0.3 CK-MB (CK-2) 15.5 H Total Protein 5.0 L Albumin 1.8 L Triglycerides 285 H Lipase 2385 H Beta-Hydroxybutyrate Urine Color Urine Appearance Urine pH Ur Specific [place] Urine Protein Urine Glucose (UA) Urine Ketones Urine Blood Urine Nitrite Urine Bilirubin Urine Urobilinogen Ur Leukocyte Esterase Urine WBC (Auto) Urine RBC (Auto) Urine Casts (Auto) U Epithel Cells (Auto) Urine Bacteria (Auto) Ur Random Creatinine Random Vancomycin 14.4 L Opiates Screen Methadone Screen Barbiturate Screen Phencyclidine Screen Ur Amphetamines Screen MDMA (Ecstasy) Screen Benzodiazepines Screen Cocaine Screen U Marijuana (THC) Screen Alcohol, Quantitative 08/20/19 08/20/19 07:00 07:00 WBC RBC Hgb Hct MCV MCH MCHC RDW Plt Count MPV Absolute Neuts (auto) Neutrophils % Lymphocytes % Monocytes % Eosinophils % Basophils % Nucleated RBC % Hypochromia Platelet Estimate Polychromasia Poikilocytosis Anisocytosis Microcytosis Macrocytosis PTT (Actin FS) 40.2 H Anticoagulation Therapy Puncture Site ABG pH ABG pCO2 at Pt Temp ABG pO2 at Pt Temp ABG HCO3 ABG O2 Sat (Measured) ABG O2 Content ABG Base Excess Moisés Test O2 Delivery Device Oxygen Flow Rate Vent Mode Vent Rate Mechanical Rate PEEP Pressure Support Vent Sodium Potassium Chloride Carbon Dioxide Anion Gap BUN Creatinine Est GFR (CKD-EPI)AfAm Est GFR (CKD-EPI)NonAf POC Glucometer Random Glucose Hemoglobin A1c % Serum Osmolality Lactic Acid 2.7 H* Calcium Phosphorus Magnesium Total Bilirubin AST ALT Alkaline Phosphatase Creatine Kinase Creatine Kinase Index CK-MB (CK-2) Total Protein Albumin Triglycerides Lipase Beta-Hydroxybutyrate Urine Color Urine Appearance Urine pH Ur Specific [place] Urine Protein Urine Glucose (UA) Urine Ketones Urine Blood Urine Nitrite Urine Bilirubin Urine Urobilinogen Ur Leukocyte Esterase Urine WBC (Auto) Urine RBC (Auto) Urine Casts (Auto) U Epithel Cells (Auto) Urine Bacteria (Auto) Ur Random Creatinine Random Vancomycin Opiates Screen Methadone Screen Barbiturate Screen Phencyclidine Screen Ur Amphetamines Screen MDMA (Ecstasy) Screen Benzodiazepines Screen Cocaine Screen U Marijuana (THC) Screen Alcohol, Quantitative Active Medications Generic Name Dose Route Start Last Admin Trade Name Freq PRN Reason Stop Dose Admin Chlorhexidine Gluconate 1 applic 08/19/19 22:00 08/19/19 21:52 Hibiclens For Decolonization - TP 1 applic HS GAUTAM Administration Hydrocortisone Sodium Succinate 50 mg 08/19/19 18:00 08/20/19 05:30 Solu-Cortef - IVPUSH 50 mg Q6H GAUTAM Administration Norepinephrine Bitartrate 4, 500 mls @ 37.5 mls/hr 08/19/19 12:00 08/20/19 05 :03 000 mcg/ Dextrose IV 30 mcg/min TITR GAUTAM 225 mls/hr Titration Protocol 5 MCG/MIN Midazolam HCl 100 mg in 100 mls @ 1 mls/hr 08/19/19 13:02 08/19/19 14:40 Midazolam 100mg/100ml-0.9%Nacl IVPB 3 mg/hr TITR GAUTAM 3 mls/hr Titration Protocol 1 MG/HR Vasopressin 50 units/ Sodium 100 mls @ 4 mls/hr 08/19/19 13:45 08/19/19 15:00 Chloride IVPB 6 units/hr ASDIR GAUTAM 12 mls/hr Titration Protocol 2 UNITS/HR Meropenem 1 gm/ Dextrose 100 mls @ 200 mls/hr 08/19/19 15:00 08/20/19 02:10 IVPB 200 mls/hr Q12H GAUTAM Administration As Directed Phenylephrine HCl 20,000 mcg/ 250 mls @ 75 mls/hr 08/19/19 15:15 08/20/19 05: 05 Sodium Chloride IVPB 180 mcg/min ASDIR GAUTAM 135 mls/hr Titration Protocol 100 MCG/MIN Potassium Chloride/Sodium Chloride 20 meq in 1,000 mls @ 200 mls/hr 08/19/19 15:30 08/19/19 17:49 Ns+20 Meq Kcl - IV Not Given ASDIR GAUTAM Vecuronium [place] 50 mg/ 250 mls @ 33.82 mls/hr 08/19/19 18:00 08/19/19 22: 51 Dextrose IVPB 1 mcg/kg/min TITR GAUATM 33.82 mls/hr Administration 1 MCG/KG/MIN Clindamycin Phosphate 900 mg in 50 mls @ 100 mls/hr 08/19/19 19:15 08/20/19 01:42 Cleocin 900 Mg Premix Ivpb - IVPB 100 mls/hr Q8H-IV GAUTAM Administration Protocol Insulin Human Regular 100 100 mls @ 10 mls/hr 08/20/19 05:00 08/20/19 05:06 units/ Sodium Chloride IVPB Not Given TITR GAUTAM Protocol 10 UNITS/HR Sodium Phosphate 15 mm/ Sodium 255 mls @ 62.5 mls/hr 08/20/19 08:48 Chloride IVPB 08/20/19 12:52 ONCE ONE Potassium Chloride/Dextrose/Sod Cl 20 meq in 1,000 mls @ 150 mls/hr 08/20/19 09:15 D5-1/2ns+20 Meq Kcl - IV ASDIR GAUTAM Vancomycin HCl 1,000 mg/ 250 mls @ 166.667 mls/hr 08/20/19 09:36 Dextrose IVPB 08/20/19 11:05 ONCE ONE Protocol Mupirocin 1 applic 08/19/19 22:00 08/19/19 21:51 Bactroban Ointment (For Decolonization) - NS 08/24/19 21:59 1 applic BID GAUTAM Administration ASSESSMENT/PLAN: Pt is a 24 yo M with Down's syndrome, brought in for AMS, found to have DKA and possible pancreatitis,and new onset DM, noted to be hypoxic s/p cardiac arrest with PEA, postintubation n/v with aspiration PNA and now features on CXR suggestive of ARDs Down's syndrome, AMS, DKA pancreatitis new onset DM, acute hypoxic respiratory failure s/p cardiac arrest with PEA, postintubation n/v aspiration AGMA Sepsis R thigh pustule, rashes Aspiration pneumonitis/pneumonia Thrombocytopenia Shock LIYA Acute hypoxic respiratory failure Paralyzed Plan: Sepsis , unknown etiology lipase trending down Aspiration pneumonitis/pneumonia-now with ARDs CXR picture, on ARDS protocol with fluid restriction vancomycin level 14 this am, 1g Vanc redosed this am Will do random vanc level with DKA labs possibly at about 10-00pm- Midnight if vanc level,15 with redose 1g Cont Meropenem-day 2 Cont clinda- day 2 Pending legionella AG to determine continuation of levoflox Pending wcx Bcx- neg Ucx pending Cont pressor support as needed IVF per ICU ICU level care indicated Guarded prognosis D/W Dr Raymond Galindo PGY 3, Infectious Disease rotation Visit type - Emergency Visit Emergency Visit: Yes ED Registration Date: 08/19/19 Care time: The patient presented to the Emergency Department on the above date and was hospitalized for further evaluation of their emergent condition. - New Patient This patient is new to me today: Yes Date on this admission: 08/20/19 - Critical Care Critical Care patient: Yes Total Critical Care Time (in minutes): 30 Critical Care Statement: The care of this patient involved high complexity decision making to prevent further life threatening deterioration of the patient 's condition and/or to evaluate & treat vital organ system(s) failure or risk of failure. - Discharge Referral Referred to [facility] No ATTENDING PHYSICIAN STATEMENT I saw and evaluated the patient. I reviewed the resident's note and discussed the case with the resident. I agree with the resident's findings and plan as documented. SUBJECTIVE: OBJECTIVE: ASSESSMENT AND PLAN:
--- NOTE | 2019-08-20 09:53 | PN ---
Progress Note (short form) - Note Progress Note: ID followup see resident's note family at bedside he is intubated and sedated and paralyzed on 3 pressors still with poor oxygenation Vital Signs Period Temp Pulse Resp BP Sys/Stovall Pulse Ox Last 24 Hr 97.2 F-99.2 F 0-141 16-39 58-142/22-116 67-99 orally intubated cor-rrr lungs decreased bs at bases abd soft,nt ext trace edema adler with urine CBC, BMP 08/20/19 07:00 chemistries pending Microbiology 08/19/19 08:42 Blood - Peripheral Venous Blood Culture - Preliminary NO GROWTH OBTAINED AFTER 24 HOURS, INCUBATION TO CONTINUE FOR 4 DAYS. 08/19/19 08:42 Blood - Peripheral Venous Blood Culture - Preliminary NO GROWTH OBTAINED AFTER 24 HOURS, INCUBATION TO CONTINUE FOR 4 DAYS. 08/19/19 04:05 Blood - Peripheral Venous Blood Culture - Preliminary NO GROWTH OBTAINED AFTER 24 HOURS, INCUBATION TO CONTINUE FOR 4 DAYS. 08/19/19 04:05 Blood - Peripheral Venous Blood Culture - Preliminary NO GROWTH OBTAINED AFTER 24 HOURS, INCUBATION TO CONTINUE FOR 4 DAYS. cxray-bilateral infiltrates c/w ARDS a/p s/p arrest multiorgan [id number] and lung DKA ARDS sepsis with aspiration pneumonia pancreatitis-nromal lfts on admission, abd sonogram unremarkable continue BS antiboitics with meropenem/vanco by level and clindamycin f/u cultures d/w family at bedside d/w ICU nurse icu team is trying to transfer patient overall prognosis is guarded will d/w ICU team overall 35 minutes spent in the care of this critically ill young man Problem List - Problems (1) Cardiac arrest Code(s): I46.9 - CARDIAC ARREST, CAUSE UNSPECIFIED (2) DKA (diabetic ketoacidoses) Code(s): E11.10 - TYPE 2 DIABETES MELLITUS WITH KETOACIDOSIS WITHOUT COMA Qualifiers: Diabetes mellitus type: other specified (including RADHA) Diabetes mellitus complication detail: with coma Qualified Code(s): E13.11 - Other specified diabetes mellitus with ketoacidosis with coma (3) Acute renal failure Code(s): N17.9 - ACUTE KIDNEY FAILURE, UNSPECIFIED (4) Acute respiratory failure Code(s): J96.00 - ACUTE RESPIRATORY FAILURE, UNSP W HYPOXIA OR HYPERCAPNIA (5) Aspiration pneumonia Code(s): J69.0 - PNEUMONITIS DUE TO INHALATION OF FOOD AND VOMIT (6) Sepsis Code(s): A41.9 - SEPSIS, UNSPECIFIED ORGANISM (7) Pancreatitis Code(s): K85.90 - ACUTE PANCREATITIS WITHOUT NECROSIS OR INFECTION, UNSP
[2019-08-20] MEDS: MUPIROCIN 2% TOPICAL OINTMENT FOR DECOLONIZATION NS SCH ×2 (10:14→22:43)
[2019-08-20 11:04] LABS: BLOOD UREA NITROGEN 72.4 mg/dL (7-18); CREATININE 6.3 mg/dL (0.55-1.3); POTASSIUM 4.7 mmol/L (3.5-5.1)
[2019-08-20 11:12] LABS: INR 1.55 (0.83-1.09); PROTHROMBIN TIME (PATIENT) 18.4 SEC (9.7-13.0)
--- NOTE | 2019-08-20 11:24 | PN ---
Teaching Attending Note Name of Resident: Aquiles Malik ATTENDING PHYSICIAN STATEMENT I saw and evaluated the patient. I reviewed the resident's note and discussed the case with the resident. I agree with the resident's findings and plan as documented. SUBJECTIVE: Pt seen and examined in the ICU. Remains intubated, sedated, paralyzed on multiple pressors. Vented on assist control with 100% FiO2, PEEP 14 but remains hypoxic. OBJECTIVE: Vital Signs Period Temp Pulse Resp BP Sys/Stovall Pulse Ox Last 24 Hr 97.2 F-100.3 F 0-141 16-39 58-142/22-116 67-92 Intake & Output 08/17/19 08/18/19 08/19/19 08/20/19 23:59 23:59 23:59 23:59 Intake Total 6672 9090.4 Output Total 1200 Balance 5472 9090.4 Weight 112.763 kg Gen: intubated, sedated, paralyzed Heart: RRR Lung: decreased breath sounds at the bases Abd: soft, nontender Ext: no edema CBC, BMP 08/20/19 07:00 08/20/19 08:36 Active Medications Chlorhexidine Gluconate (Hibiclens For Decolonization -) 1 applic TP HS GAUTAM Last Admin: 08/19/19 21:52 Dose: 1 applic Hydrocortisone Sodium Succinate (Solu-Cortef -) 50 mg IVPUSH Q6H GAUTAM Last Admin: 08/20/19 05:30 Dose: 50 mg Norepinephrine Bitartrate 4, (000 mcg/ Dextrose) 500 mls @ 37.5 mls/hr IV TITR GAUTAM; Protocol Last Titration: 08/20/19 05:03 Dose: 30 mcg/min, 225 mls/hr Midazolam HCl (Midazolam 100mg/100ml-0.9%Nacl) 100 mg in 100 mls @ 1 mls/hr IVPB TITR GAUTAM; Protocol Last Titration: 08/19/19 14:40 Dose: 3 mg/hr, 3 mls/hr Vasopressin 50 units/ Sodium (Chloride) 100 mls @ 4 mls/hr IVPB ASDIR GAUTAM; Protocol Last Titration: 08/19/19 15:00 Dose: 6 units/hr, 12 mls/hr Meropenem 1 gm/ Dextrose 100 mls @ 200 mls/hr IVPB Q12H GAUTAM Last Admin: 08/20/19 02:10 Dose: 200 mls/hr Phenylephrine HCl 20,000 mcg/ (Sodium Chloride) 250 mls @ 75 mls/hr IVPB ASDIR GAUTAM; Protocol Last Titration: 08/20/19 05:05 Dose: 180 mcg/min, 135 mls/hr Potassium Chloride/Sodium Chloride (Ns+20 Meq Kcl -) 20 meq in 1,000 mls @ 200 mls/hr IV ASDIR GAUTAM Last Admin: 08/19/19 17:49 Dose: Not Given Vecuronium [place] 50 mg/ (Dextrose) 250 mls @ 33.82 mls/hr IVPB TITR GAUTAM Last Admin: 08/19/19 22:51 Dose: 1 mcg/kg/min, 33.82 mls/hr Clindamycin Phosphate (Cleocin 900 Mg Premix Ivpb -) 900 mg in 50 mls @ 100 mls /hr IVPB Q8H-IV GAUTAM; Protocol Last Admin: 08/20/19 10:14 Dose: 100 mls/hr Insulin Human Regular 100 (units/ Sodium Chloride) 100 mls @ 10 mls/hr IVPB TITR GAUTAM; Protocol Last Admin: 08/20/19 05:06 Dose: Not Given Sodium Phosphate 15 mm/ Sodium (Chloride) 255 mls @ 62.5 mls/hr IVPB ONCE ONE Stop: 08/20/19 12:52 Last Admin: 08/20/19 09:52 Dose: 62.5 mls/hr Potassium Chloride/Dextrose/Sod Cl (D5-1/2ns+20 Meq Kcl -) 20 meq in 1,000 mls @ 150 mls/hr IV ASDIR GAUTAM Famotidine/Sodium Chloride (Pepcid 20 Mg Premixed Ivpb -) 20 mg in 50 mls @ 100 mls/hr IVPB BID GAUTAM Mupirocin (Bactroban Ointment (For Decolonization) -) 1 applic NS BID GAUTAM Stop: 08/24/19 21:59 Last Admin: 08/20/19 10:14 Dose: 1 applic ASSESSMENT AND PLAN: s/p Cardiopulmonary Arrest Diabetic Ketoacidosis r/o Pneumonia ARDS Septic Shock Acute Kidney Injury Lactic Acidosis Thrombocytopenia r/o DIC +Troponins likely Demand Ischemia Rhabdomyolysis r/o Acute Pancreatitis Down Syndrome - continue antibiotics - f/u cultures - IVF to keep CVP 8-12 - titrate pressors to maintain MAP >65 - continue stress dose steroids - adjusted vent settings - low tidal volume ventilation <6cc/kg/IBW - keep Pplat <30 - monitor ABG - glucose control - monitor CBC - transfuse as needed - replete lytes - monitor urine output, creatinine - prognosis guarded - transfer to tertiary care for possible ECMO - continue ICU monitoring critical care time spent in reviewing chart, evaluating patient and formulating plan 35 min
[2019-08-20 11:27] LABS: CALCIUM 6.2 mg/dL (8.5-10.1)
--- NOTE | 2019-08-20 11:41 | PN ---
Physical Exam: SUBJECTIVE: Patient seen and examined in ICU. Spoke with family regarding tranfser. Nathaniel had rejected the transfer for [facility] prior to rounds due to LIYA severity etc. Will try to see if pt can be transferred to [facility]. Will try to get ahold of the records from [facility]. Pt is intubated and sedated maxed out on pressor support. OBJECTIVE: Vital Signs Period Temp Pulse Resp BP Sys/Stovall Pulse Ox Last 24 Hr 97.2 F-100.3 F 0-141 16-39 58-142/22-116 67-91 GENERAL: The patient is intubated and sedated, RASS -5. NECK: supple. LUNGS: decreased breath sounds, roncherous. HEART: tachycardic into 110's with regular rythym, normal S1, S2 without murmur , rub or gallop. ABDOMEN: Soft, nontender, nondistended EXTREMITIES: warm, well-perfused, 1+ pitting edema b/l LE's, and RUE edema. PSYCH: sedated Laboratory Results - last 24 hr 08/19/19 08/19/19 08/19/19 10:30 10:30 12:21 WBC RBC Hgb Hct MCV MCH MCHC RDW Plt Count MPV Absolute Neuts (auto) Neutrophils % Lymphocytes % Monocytes % Eosinophils % Basophils % Nucleated RBC % PT with INR INR PTT (Actin FS) Fibrinogen Anticoagulation Therapy Puncture Site ABG pH ABG pCO2 at Pt Temp ABG pO2 at Pt Temp ABG HCO3 ABG O2 Sat (Measured) ABG O2 Content ABG Base Excess Moisés Test O2 Delivery Device Oxygen Flow Rate Vent Mode Vent Rate Mechanical Rate PEEP Pressure Support Vent Sodium Potassium Chloride Carbon Dioxide Anion Gap BUN Creatinine Est GFR (CKD-EPI)AfAm Est GFR (CKD-EPI)NonAf POC Glucometer > 600 Random Glucose Lactic Acid Calcium Phosphorus Magnesium Total Bilirubin AST ALT Alkaline Phosphatase Creatine Kinase Creatine Kinase Index CK-MB (CK-2) Troponin I Total Protein Albumin Triglycerides Lipase Urine Color Yellow Urine Appearance Cloudy Urine pH 5.0 Ur Specific [place] 1.028 Urine Protein 1+ H Urine Glucose (UA) 3+ H Urine Ketones Trace H Urine Blood 2+ H Urine Nitrite Negative Urine Bilirubin Negative Urine Urobilinogen 0.2 Ur Leukocyte Esterase Negative Urine WBC (Auto) 3 Urine RBC (Auto) 0-2 Urine Casts (Auto) 4 U Epithel Cells (Auto) 3.6 Urine Bacteria (Auto) 41.1 Random Vancomycin Opiates Screen Negative Methadone Screen Negative Barbiturate Screen Negative Phencyclidine Screen Negative Ur Amphetamines Screen Negative MDMA (Ecstasy) Screen Negative Benzodiazepines Screen Negative Cocaine Screen Negative U Marijuana (THC) Screen Negative 08/19/19 08/19/19 08/19/19 13:54 14:43 15:12 WBC RBC Hgb Hct MCV MCH MCHC RDW Plt Count MPV Absolute Neuts (auto) Neutrophils % Lymphocytes % Monocytes % Eosinophils % Basophils % Nucleated RBC % PT with INR INR PTT (Actin FS) Fibrinogen Anticoagulation Therapy No Result Required. Puncture Site Left radial ABG pH 7.19 L* ABG pCO2 at Pt Temp 47.4 H ABG pO2 at Pt Temp 49.0 L* ABG HCO3 17.3 L ABG O2 Sat (Measured) 82.6 L ABG O2 Content 15.6 ABG Base Excess -10.6 L Moisés Test Positive O2 Delivery Device No Result Required. Oxygen Flow Rate 100 Vent Mode No Result Required. Vent Rate No Result Required. Mechanical Rate No Result Required. PEEP Pressure Support Vent No Result Required. Sodium 137 Potassium 5.0 Chloride 105 Carbon Dioxide 22 Anion Gap 10 BUN 83.6 H Creatinine 7.9 H* Est GFR (CKD-EPI)AfAm 10.13 Est GFR (CKD-EPI)NonAf 8.74 POC Glucometer > 600 Random Glucose 1017 H* Lactic Acid Calcium 7.1 L Phosphorus Magnesium Total Bilirubin AST ALT Alkaline Phosphatase Creatine Kinase Creatine Kinase Index CK-MB (CK-2) Troponin I Total Protein Albumin Triglycerides Lipase Urine Color Urine Appearance Urine pH Ur Specific [place] Urine Protein Urine Glucose (UA) Urine Ketones Urine Blood Urine Nitrite Urine Bilirubin Urine Urobilinogen Ur Leukocyte Esterase Urine WBC (Auto) Urine RBC (Auto) Urine Casts (Auto) U Epithel Cells (Auto) Urine Bacteria (Auto) Random Vancomycin Opiates Screen Methadone Screen Barbiturate Screen Phencyclidine Screen Ur Amphetamines Screen MDMA (Ecstasy) Screen Benzodiazepines Screen Cocaine Screen U Marijuana (THC) Screen 08/19/19 08/19/19 08/19/19 15:20 15:20 16:45 WBC RBC Hgb Hct MCV MCH MCHC RDW Plt Count MPV Absolute Neuts (auto) Neutrophils % Lymphocytes % Monocytes % Eosinophils % Basophils % Nucleated RBC % PT with INR INR PTT (Actin FS) Fibrinogen Anticoagulation Therapy No Result Required. Puncture Site Left radial ABG pH 7.20 L ABG pCO2 at Pt Temp 45.5 H ABG pO2 at Pt Temp < 49 L* ABG HCO3 17.0 L ABG O2 Sat (Measured) 81.3 L ABG O2 Content No Result Required. ABG Base Excess -10.7 L Moisés Test Positive O2 Delivery Device Mech. vent Oxygen Flow Rate 100% Vent Mode A/c Vent Rate 18 Mechanical Rate Yes PEEP 0.0 Pressure Support Vent 500 Sodium 140 Potassium 4.3 Chloride 108 H Carbon Dioxide 23 Anion Gap 9 BUN 80.4 H Creatinine 7.3 H Est GFR (CKD-EPI)AfAm 11.15 Est GFR (CKD-EPI)NonAf 9.62 POC Glucometer Random Glucose 935 H* Lactic Acid 4.4 H* Calcium 6.7 L* Phosphorus 1.5 L Magnesium 2.6 H Total Bilirubin AST ALT Alkaline Phosphatase Creatine Kinase Creatine Kinase Index CK-MB (CK-2) Troponin I Total Protein Albumin Triglycerides Lipase Urine Color Urine Appearance Urine pH Ur Specific [place] Urine Protein Urine Glucose (UA) Urine Ketones Urine Blood Urine Nitrite Urine Bilirubin Urine Urobilinogen Ur Leukocyte Esterase Urine WBC (Auto) Urine RBC (Auto) Urine Casts (Auto) U Epithel Cells (Auto) Urine Bacteria (Auto) Random Vancomycin Opiates Screen Methadone Screen Barbiturate Screen Phencyclidine Screen Ur Amphetamines Screen MDMA (Ecstasy) Screen Benzodiazepines Screen Cocaine Screen U Marijuana (THC) Screen 08/19/19 08/19/19 08/19/19 17:00 17:00 18:16 WBC RBC Hgb Hct MCV MCH MCHC RDW Plt Count MPV Absolute Neuts (auto) Neutrophils % Lymphocytes % Monocytes % Eosinophils % Basophils % Nucleated RBC % PT with INR INR PTT (Actin FS) Fibrinogen Anticoagulation Therapy Puncture Site ABG pH ABG pCO2 at Pt Temp ABG pO2 at Pt Temp ABG HCO3 ABG O2 Sat (Measured) ABG O2 Content ABG Base Excess Moisés Test O2 Delivery Device Oxygen Flow Rate Vent Mode Vent Rate Mechanical Rate PEEP Pressure Support Vent Sodium 139 Potassium 4.2 Chloride 108 H Carbon Dioxide 21 Anion Gap 11 BUN 80.5 H Creatinine 7.3 H Est GFR (CKD-EPI)AfAm 11.15 Est GFR (CKD-EPI)NonAf 9.62 POC Glucometer > 600 Random Glucose 864 H* Lactic Acid 4.8 H* Calcium 7.0 L Phosphorus Magnesium Total Bilirubin AST ALT Alkaline Phosphatase Creatine Kinase Creatine Kinase Index CK-MB (CK-2) Troponin I Total Protein Albumin Triglycerides Lipase Urine Color Urine Appearance Urine pH Ur Specific [place] Urine Protein Urine Glucose (UA) Urine Ketones Urine Blood Urine Nitrite Urine Bilirubin Urine Urobilinogen Ur Leukocyte Esterase Urine WBC (Auto) Urine RBC (Auto) Urine Casts (Auto) U Epithel Cells (Auto) Urine Bacteria (Auto) Random Vancomycin Opiates Screen Methadone Screen Barbiturate Screen Phencyclidine Screen Ur Amphetamines Screen MDMA (Ecstasy) Screen Benzodiazepines Screen Cocaine Screen U Marijuana (THC) Screen 08/19/19 08/19/19 08/19/19 19:59 20:05 21:11 WBC RBC Hgb Hct MCV MCH MCHC RDW Plt Count MPV Absolute Neuts (auto) Neutrophils % Lymphocytes % Monocytes % Eosinophils % Basophils % Nucleated RBC % PT with INR INR PTT (Actin FS) Fibrinogen Anticoagulation Therapy Puncture Site ABG pH ABG pCO2 at Pt Temp ABG pO2 at Pt Temp ABG HCO3 ABG O2 Sat (Measured) ABG O2 Content ABG Base Excess Moisés Test O2 Delivery Device Oxygen Flow Rate Vent Mode Vent Rate Mechanical Rate PEEP Pressure Support Vent Sodium 145 Potassium 3.7 Chloride 112 H Carbon Dioxide 20 L Anion Gap 13 BUN 80.7 H Creatinine 6.8 H Est GFR (CKD-EPI)AfAm 12.14 Est GFR (CKD-EPI)NonAf 10.48 POC Glucometer > 600 > 600 Random Glucose 674 H* Lactic Acid Calcium 7.0 L Phosphorus Magnesium Total Bilirubin AST ALT Alkaline Phosphatase Creatine Kinase Creatine Kinase Index CK-MB (CK-2) Troponin I Total Protein Albumin Triglycerides Lipase Urine Color Urine Appearance Urine pH Ur Specific [place] Urine Protein Urine Glucose (UA) Urine Ketones Urine Blood Urine Nitrite Urine Bilirubin Urine Urobilinogen Ur Leukocyte Esterase Urine WBC (Auto) Urine RBC (Auto) Urine Casts (Auto) U Epithel Cells (Auto) Urine Bacteria (Auto) Random Vancomycin Opiates Screen Methadone Screen Barbiturate Screen Phencyclidine Screen Ur Amphetamines Screen MDMA (Ecstasy) Screen Benzodiazepines Screen Cocaine Screen U Marijuana (THC) Screen 08/19/19 08/19/19 08/20/19 22:09 23:07 00:00 WBC RBC Hgb Hct MCV MCH MCHC RDW Plt Count MPV Absolute Neuts (auto) Neutrophils % Lymphocytes % Monocytes % Eosinophils % Basophils % Nucleated RBC % PT with INR INR PTT (Actin FS) Fibrinogen Anticoagulation Therapy Puncture Site ABG pH ABG pCO2 at Pt Temp ABG pO2 at Pt Temp ABG HCO3 ABG O2 Sat (Measured) ABG O2 Content ABG Base Excess Moisés Test O2 Delivery Device Oxygen Flow Rate Vent Mode Vent Rate Mechanical Rate PEEP Pressure Support Vent Sodium 145 Potassium 3.7 Chloride 114 H Carbon Dioxide 20 L Anion Gap 11 BUN 77.6 H Creatinine 6.6 H Est GFR (CKD-EPI)AfAm 12.59 Est GFR (CKD-EPI)NonAf 10.86 POC Glucometer 576 531 Random Glucose 483 H* Lactic Acid Calcium 6.9 L* Phosphorus Magnesium Total Bilirubin AST ALT Alkaline Phosphatase Creatine Kinase Creatine Kinase Index CK-MB (CK-2) Troponin I Total Protein Albumin Triglycerides Lipase Urine Color Urine Appearance Urine pH Ur Specific [place] Urine Protein Urine Glucose (UA) Urine Ketones Urine Blood Urine Nitrite Urine Bilirubin Urine Urobilinogen Ur Leukocyte Esterase Urine WBC (Auto) Urine RBC (Auto) Urine Casts (Auto) U Epithel Cells (Auto) Urine Bacteria (Auto) Random Vancomycin Opiates Screen Methadone Screen Barbiturate Screen Phencyclidine Screen Ur Amphetamines Screen MDMA (Ecstasy) Screen Benzodiazepines Screen Cocaine Screen U Marijuana (THC) Screen 08/20/19 08/20/19 08/20/19 00:00 00:00 00:05 WBC 4.2 RBC 3.98 L Hgb 12.4 Hct 37.9 D MCV 95.3 D MCH 31.1 MCHC 32.7 RDW 15.6 D Plt Count 42 L D MPV 12.3 H Absolute Neuts (auto) Neutrophils % Lymphocytes % Monocytes % Eosinophils % Basophils % Nucleated RBC % PT with INR INR PTT (Actin FS) Fibrinogen Anticoagulation Therapy Puncture Site ABG pH ABG pCO2 at Pt Temp ABG pO2 at Pt Temp ABG HCO3 ABG O2 Sat (Measured) ABG O2 Content ABG Base Excess Moisés Test O2 Delivery Device Oxygen Flow Rate Vent Mode Vent Rate Mechanical Rate PEEP Pressure Support Vent Sodium Potassium Chloride Carbon Dioxide Anion Gap BUN Creatinine Est GFR (CKD-EPI)AfAm Est GFR (CKD-EPI)NonAf POC Glucometer 555 Random Glucose Lactic Acid 4.3 H* Calcium Phosphorus Magnesium Total Bilirubin AST ALT Alkaline Phosphatase Creatine Kinase Creatine Kinase Index CK-MB (CK-2) Troponin I Total Protein Albumin Triglycerides Lipase Urine Color Urine Appearance Urine pH Ur Specific [place] Urine Protein Urine Glucose (UA) Urine Ketones Urine Blood Urine Nitrite Urine Bilirubin Urine Urobilinogen Ur Leukocyte Esterase Urine WBC (Auto) Urine RBC (Auto) Urine Casts (Auto) U Epithel Cells (Auto) Urine Bacteria (Auto) Random Vancomycin Opiates Screen Methadone Screen Barbiturate Screen Phencyclidine Screen Ur Amphetamines Screen MDMA (Ecstasy) Screen Benzodiazepines Screen Cocaine Screen U Marijuana (THC) Screen 08/20/19 08/20/19 08/20/19 02:04 03:13 04:23 WBC RBC Hgb Hct MCV MCH MCHC RDW Plt Count MPV Absolute Neuts (auto) Neutrophils % Lymphocytes % Monocytes % Eosinophils % Basophils % Nucleated RBC % PT with INR INR PTT (Actin FS) Fibrinogen Anticoagulation Therapy Puncture Site ABG pH ABG pCO2 at Pt Temp ABG pO2 at Pt Temp ABG HCO3 ABG O2 Sat (Measured) ABG O2 Content ABG Base Excess Miosés Test O2 Delivery Device Oxygen Flow Rate Vent Mode Vent Rate Mechanical Rate PEEP Pressure Support Vent Sodium Potassium Chloride Carbon Dioxide Anion Gap BUN Creatinine Est GFR (CKD-EPI)AfAm Est GFR (CKD-EPI)NonAf POC Glucometer 367 346 392 Random Glucose Lactic Acid Calcium Phosphorus Magnesium Total Bilirubin AST ALT Alkaline Phosphatase Creatine Kinase Creatine Kinase Index CK-MB (CK-2) Troponin I Total Protein Albumin Triglycerides Lipase Urine Color Urine Appearance Urine pH Ur Specific [place] Urine Protein Urine Glucose (UA) Urine Ketones Urine Blood Urine Nitrite Urine Bilirubin Urine Urobilinogen Ur Leukocyte Esterase Urine WBC (Auto) Urine RBC (Auto) Urine Casts (Auto) U Epithel Cells (Auto) Urine Bacteria (Auto) Random Vancomycin Opiates Screen Methadone Screen Barbiturate Screen Phencyclidine Screen Ur Amphetamines Screen MDMA (Ecstasy) Screen Benzodiazepines Screen Cocaine Screen U Marijuana (THC) Screen 08/20/19 08/20/19 08/20/19 05:09 06:14 06:50 WBC RBC Hgb Hct MCV MCH MCHC RDW Plt Count MPV Absolute Neuts (auto) Neutrophils % Lymphocytes % Monocytes % Eosinophils % Basophils % Nucleated RBC % PT with INR INR PTT (Actin FS) Fibrinogen Anticoagulation Therapy Puncture Site Right femoral ABG pH 7.21 L ABG pCO2 at Pt Temp 46.2 H ABG pO2 at Pt Temp < 49 L* ABG HCO3 17.9 L ABG O2 Sat (Measured) 77.3 L ABG O2 Content No Result Required. ABG Base Excess -9.4 L Moisés Test No Result Required. O2 Delivery Device Oxygen Flow Rate 100% Vent Mode A/c vc Vent Rate 24 Mechanical Rate PEEP 14.0 Pressure Support Vent 450 Sodium Potassium Chloride Carbon Dioxide Anion Gap BUN Creatinine Est GFR (CKD-EPI)AfAm Est GFR (CKD-EPI)NonAf POC Glucometer 285 291 Random Glucose Lactic Acid Calcium Phosphorus Magnesium Total Bilirubin AST ALT Alkaline Phosphatase Creatine Kinase Creatine Kinase Index CK-MB (CK-2) Troponin I Total Protein Albumin Triglycerides Lipase Urine Color Urine Appearance Urine pH Ur Specific [place] Urine Protein Urine Glucose (UA) Urine Ketones Urine Blood Urine Nitrite Urine Bilirubin Urine Urobilinogen Ur Leukocyte Esterase Urine WBC (Auto) Urine RBC (Auto) Urine Casts (Auto) U Epithel Cells (Auto) Urine Bacteria (Auto) Random Vancomycin Opiates Screen Methadone Screen Barbiturate Screen Phencyclidine Screen Ur Amphetamines Screen MDMA (Ecstasy) Screen Benzodiazepines Screen Cocaine Screen U Marijuana (THC) Screen 08/20/19 08/20/19 08/20/19 07:00 07:00 07:00 WBC 9.9 RBC 3.73 L Hgb 11.6 L Hct 35.2 L MCV 94.3 MCH 31.1 MCHC 32.9 RDW 15.5 Plt Count 34 L* MPV 12.0 H Absolute Neuts (auto) 8.3 H Neutrophils % 84.2 H Lymphocytes % 8.4 D Monocytes % 6.5 Eosinophils % 0.4 D Basophils % 0.5 Nucleated RBC % 0 PT with INR INR PTT (Actin FS) Fibrinogen Anticoagulation Therapy Puncture Site ABG pH ABG pCO2 at Pt Temp ABG pO2 at Pt Temp ABG HCO3 ABG O2 Sat (Measured) ABG O2 Content ABG Base Excess Moisés Test O2 Delivery Device Oxygen Flow Rate Vent Mode Vent Rate Mechanical Rate PEEP Pressure Support Vent Sodium 146 H Potassium 4.6 Chloride 118 H Carbon Dioxide 20 L Anion Gap 8 BUN 76.4 H Creatinine 6.1 H Est GFR (CKD-EPI)AfAm 13.85 Est GFR (CKD-EPI)NonAf 11.95 POC Glucometer Random Glucose 337 H Lactic Acid Calcium 6.3 L* Phosphorus 2.1 L Magnesium 1.7 L Total Bilirubin 0.3 AST 131 H ALT 56 Alkaline Phosphatase 69 Creatine Kinase 5026 H Creatine Kinase Index 0.3 CK-MB (CK-2) 15.5 H Troponin I Total Protein 5.0 L Albumin 1.8 L Triglycerides 285 H Lipase 2385 H Urine Color Urine Appearance Urine pH Ur Specific [place] Urine Protein Urine Glucose (UA) Urine Ketones Urine Blood Urine Nitrite Urine Bilirubin Urine Urobilinogen Ur Leukocyte Esterase Urine WBC (Auto) Urine RBC (Auto) Urine Casts (Auto) U Epithel Cells (Auto) Urine Bacteria (Auto) Random Vancomycin 14.4 L Opiates Screen Methadone Screen Barbiturate Screen Phencyclidine Screen Ur Amphetamines Screen MDMA (Ecstasy) Screen Benzodiazepines Screen Cocaine Screen U Marijuana (THC) Screen 08/20/19 08/20/19 08/20/19 07:00 07:00 07:00 WBC RBC Hgb Hct MCV MCH MCHC RDW Plt Count MPV Absolute Neuts (auto) Neutrophils % Lymphocytes % Monocytes % Eosinophils % Basophils % Nucleated RBC % PT with INR 18.40 H INR 1.55 H PTT (Actin FS) 40.2 H Fibrinogen Anticoagulation Therapy Puncture Site ABG pH ABG pCO2 at Pt Temp ABG pO2 at Pt Temp ABG HCO3 ABG O2 Sat (Measured) ABG O2 Content ABG Base Excess Moisés Test O2 Delivery Device Oxygen Flow Rate Vent Mode Vent Rate Mechanical Rate PEEP Pressure Support Vent Sodium Potassium Chloride Carbon Dioxide Anion Gap BUN Creatinine Est GFR (CKD-EPI)AfAm Est GFR (CKD-EPI)NonAf POC Glucometer Random Glucose Lactic Acid 2.7 H* Calcium Phosphorus Magnesium Total Bilirubin AST ALT Alkaline Phosphatase Creatine Kinase Creatine Kinase Index CK-MB (CK-2) Troponin I Total Protein Albumin Triglycerides Lipase Urine Color Urine Appearance Urine pH Ur Specific [place] Urine Protein Urine Glucose (UA) Urine Ketones Urine Blood Urine Nitrite Urine Bilirubin Urine Urobilinogen Ur Leukocyte Esterase Urine WBC (Auto) Urine RBC (Auto) Urine Casts (Auto) U Epithel Cells (Auto) Urine Bacteria (Auto) Random Vancomycin Opiates Screen Methadone Screen Barbiturate Screen Phencyclidine Screen Ur Amphetamines Screen MDMA (Ecstasy) Screen Benzodiazepines Screen Cocaine Screen U Marijuana (THC) Screen 08/20/19 08/20/19 08/20/19 07:00 08:36 10:48 WBC RBC Hgb Hct MCV MCH MCHC RDW Plt Count MPV Absolute Neuts (auto) Neutrophils % Lymphocytes % Monocytes % Eosinophils % Basophils % Nucleated RBC % PT with INR INR PTT (Actin FS) Fibrinogen 380.0 Anticoagulation Therapy Puncture Site ABG pH ABG pCO2 at Pt Temp ABG pO2 at Pt Temp ABG HCO3 ABG O2 Sat (Measured) ABG O2 Content ABG Base Excess Moisés Test O2 Delivery Device Oxygen Flow Rate Vent Mode Vent Rate Mechanical Rate PEEP Pressure Support Vent Sodium 146 H Potassium 4.7 Chloride 115 H Carbon Dioxide 21 Anion Gap 9 BUN 72.4 H Creatinine 6.3 H Est GFR (CKD-EPI)AfAm 13.32 Est GFR (CKD-EPI)NonAf 11.49 POC Glucometer 309 Random Glucose 322 H Lactic Acid Calcium 6.2 L* Phosphorus Magnesium Total Bilirubin AST ALT Alkaline Phosphatase Creatine Kinase 5078 H Creatine Kinase Index 0.3 CK-MB (CK-2) 15.4 H Troponin I 1.25 H* Total Protein Albumin Triglycerides Lipase Urine Color Urine Appearance Urine pH Ur Specific [place] Urine Protein Urine Glucose (UA) Urine Ketones Urine Blood Urine Nitrite Urine Bilirubin Urine Urobilinogen Ur Leukocyte Esterase Urine WBC (Auto) Urine RBC (Auto) Urine Casts (Auto) U Epithel Cells (Auto) Urine Bacteria (Auto) Random Vancomycin Opiates Screen Methadone Screen Barbiturate Screen Phencyclidine Screen Ur Amphetamines Screen MDMA (Ecstasy) Screen Benzodiazepines Screen Cocaine Screen U Marijuana (THC) Screen Active Medications Generic Name Dose Route Start Last Admin Trade Name Freq PRN Reason Stop Dose Admin Chlorhexidine Gluconate 1 applic 08/19/19 22:00 08/19/19 21:52 Hibiclens For Decolonization - TP 1 applic HS GAUTAM Administration Hydrocortisone Sodium Succinate 50 mg 08/19/19 18:00 08/20/19 11:33 Solu-Cortef - IVPUSH 50 mg Q6H GAUTAM Administration Norepinephrine Bitartrate 4, 500 mls @ 37.5 mls/hr 08/19/19 12:00 08/20/19 05 :03 000 mcg/ Dextrose IV 30 mcg/min TITR GAUTAM 225 mls/hr Titration Protocol 5 MCG/MIN Midazolam HCl 100 mg in 100 mls @ 1 mls/hr 08/19/19 13:02 08/19/19 14:40 Midazolam 100mg/100ml-0.9%Nacl IVPB 3 mg/hr TITR GAUTAM 3 mls/hr Titration Protocol 1 MG/HR Vasopressin 50 units/ Sodium 100 mls @ 4 mls/hr 08/19/19 13:45 08/19/19 15:00 Chloride IVPB 6 units/hr ASDIR GAUTAM 12 mls/hr Titration Protocol 2 UNITS/HR Meropenem 1 gm/ Dextrose 100 mls @ 200 mls/hr 08/19/19 15:00 08/20/19 02:10 IVPB 200 mls/hr Q12H GAUTAM Administration As Directed Phenylephrine HCl 20,000 mcg/ 250 mls @ 75 mls/hr 08/19/19 15:15 08/20/19 05: 05 Sodium Chloride IVPB 180 mcg/min ASDIR GAUTAM 135 mls/hr Titration Protocol 100 MCG/MIN Potassium Chloride/Sodium Chloride 20 meq in 1,000 mls @ 200 mls/hr 08/19/19 15:30 08/19/19 17:49 Ns+20 Meq Kcl - IV Not Given ASDIR GAUTAM Vecuronium [place] 50 mg/ 250 mls @ 33.82 mls/hr 08/19/19 18:00 08/19/19 22: 51 Dextrose IVPB 1 mcg/kg/min TITR GAUTAM 33.82 mls/hr Administration 1 MCG/KG/MIN Clindamycin Phosphate 900 mg in 50 mls @ 100 mls/hr 08/19/19 19:15 08/20/19 10:14 Cleocin 900 Mg Premix Ivpb - IVPB 100 mls/hr Q8H-IV GAUTAM Administration Protocol Insulin Human Regular 100 100 mls @ 10 mls/hr 08/20/19 05:00 08/20/19 05:06 units/ Sodium Chloride IVPB Not Given TITR GAUTAM Protocol 10 UNITS/HR Sodium Phosphate 15 mm/ Sodium 255 mls @ 62.5 mls/hr 08/20/19 08:48 08/20/19 09:52 Chloride IVPB 08/20/19 12:52 62.5 mls/hr ONCE ONE Administration Potassium Chloride/Dextrose/Sod Cl 20 meq in 1,000 mls @ 150 mls/hr 08/20/19 09:15 D5-1/2ns+20 Meq Kcl - IV ASDIR GAUTAM Famotidine/Sodium Chloride 20 mg in 50 mls @ 100 mls/hr 08/20/19 11:30 Pepcid 20 Mg Premixed Ivpb - IVPB BID GAUTAM Mupirocin 1 applic 08/19/19 22:00 08/20/19 10:14 Bactroban Ointment (For Decolonization) - NS 08/24/19 21:59 1 applic BID GAUTAM Administration ASSESSMENT/PLAN: This is a 24 y/o gentleman w/ a pmh of downs syndrome who presented this AM with altered mental status. Patient is unable to provide a history, which does not depict his appropriate baseline mental status. Endocrine->DKA 2/2 possible infn vs new onset Type I DM - pt exhibits pH<7.3, HCO3<18, and glucose >250, BOHButyrate pending, elevated AG (26) - Glucose 337, normal corrected Na 151 - will continue to monitor BGM's - d/c insulin gtt given gap has closed will bridge to SQ. - NPO - will continue to D51/2 NS - A1C >13 - rpt lactate improved to 2.7 - endo consult (Dr. Gonzalez) recs appreciated. - lipase very elevated but pt unable to tolerate CT abd/pelvis to confirm. Respiratory -> ARDS 2/2 Asp PNA/DKA/?Pancreatitis - pt intubated on low TV, high RR due to hypercapnic initial ABG. - increased PEEP to max of 20 on vent due to need for alveolar recruitment to help with his oxygenation, as pt is still hypoxic in 70's on 100%FiO2. - rpt ABG will follow up after vent setting changes - CXR much much worse today - on meropenem and clinda for aspiration PNA coverage. - continue vecuronium to paralyze patient and help decrease the myocardial o2 consumption. - rpt ABG 7.03, 81 CO2, <49 O2, 20 HCO3. Neuro-> r/o syncope - CVA ruled out - echo normal EF;poor study - echo w bubble study ordered to assess for any septal defects. - carotid no hemodynamically significant stenosis Cardio-> distributive shock likely 2/2 DKA/Asp Pna/?Pancreatitis - cardio consulted (Dr. Grossman) sinus tachy no changes to meds. - CK 5026 - trops negative X 1, trop elevated will repeat for 2:30 and 8:30 PM. Renal-> LIYA likely 2/2 hypovolemia - order serum osms and urine lytes - calculate FeNa - renal sono - Dr. Jurado consulted - adler in place - avoid nephrotoxic agents ID-> Leukocytosis - CXR showing diffuse haziness b/l - aspration PNA that has transitioned into ARDS. - BC, UCx ordered, UA pending - daniele mabry clinda continuing - low grade temp 100 DVT ppx: Heparin 5K TID Dispo: We will continue to follow the patient. Visit type - Emergency Visit Emergency Visit: Yes ED Registration Date: 08/19/19 Care time: The patient presented to the Emergency Department on the above date and was hospitalized for further evaluation of their emergent condition. - New Patient This patient is new to me today: Yes Date on this admission: 08/21/19 - Critical Care Critical Care patient: Yes Total Critical Care Time (in minutes): 40 Critical Care Statement: The care of this patient involved high complexity decision making to prevent further life threatening deterioration of the patient 's condition and/or to evaluate & treat vital organ system(s) failure or risk of failure. - Discharge Referral Referred to [facility] Med [facility].C.: No ATTENDING PHYSICIAN STATEMENT I saw and evaluated the patient. I reviewed the resident's note and discussed the case with the resident. I agree with the resident's findings and plan as documented. SUBJECTIVE: OBJECTIVE: ASSESSMENT AND PLAN:
[2019-08-20 11:45] LABS: ANISOCYTOSIS 1+; MACROCYTOSIS 1+; OVALOCYTE 1+; PLATELET ESTIMATE DECREASED; TEAR DROP CELLS 1+
[2019-08-20] MEDS: FAMOTIDINE 20 MG/50 ML IVPB 20 MG/50 ML MG IVPB SCH ×2 (11:45→22:07)
--- NOTE | 2019-08-20 12:05 | EKG ---
Test Reason : Blood Pressure : / mmHG Vent. Rate : 125 BPM Atrial Rate : 125 BPM P-R Int : 138 ms QRS Dur : 070 ms QT Int : 288 ms P-R-T Axes : 006 -05 012 degrees QTc Int : 415 ms SINUS TACHYCARDIA NONSPECIFIC T WAVE ABNORMALITY ABNORMAL ECG WHEN COMPARED WITH ECG OF 19-AUG-2019 06:08, NONSPECIFIC T WAVE ABNORMALITY, WORSE IN LATERAL LEADS Confirmed by BRIAN MOFFETT, BRENDA ([id number]) on 08/20/2019 12:04:33 PM Referred By: Niya MILIAN Confirmed By:BRENDA TORRES MD
--- NOTE | 2019-08-20 12:14 | PN ---
Progress Note, Physician History of Present Illness: Pt seen and examined at bedside. He remains in the ICU. He remain on pressors and is intubated. Pt is sedated. Family at bedside and care was discussed with them. He has started to make urine and put out about 1200 cc overnight. - Current Medication List Current Medications: Active Medications Chlorhexidine Gluconate (Hibiclens For Decolonization -) 1 applic TP HS GAUTAM Last Admin: 08/19/19 21:52 Dose: 1 applic Hydrocortisone Sodium Succinate (Solu-Cortef -) 50 mg IVPUSH Q6H GAUTAM Last Admin: 08/20/19 11:33 Dose: 50 mg Norepinephrine Bitartrate 4, (000 mcg/ Dextrose) 500 mls @ 37.5 mls/hr IV TITR GAUTAM; Protocol Last Titration: 08/20/19 05:03 Dose: 30 mcg/min, 225 mls/hr Midazolam HCl (Midazolam 100mg/100ml-0.9%Nacl) 100 mg in 100 mls @ 1 mls/hr IVPB TITR GAUTAM; Protocol Last Titration: 08/19/19 14:40 Dose: 3 mg/hr, 3 mls/hr Vasopressin 50 units/ Sodium (Chloride) 100 mls @ 4 mls/hr IVPB ASDIR GAUTAM; Protocol Last Titration: 08/19/19 15:00 Dose: 6 units/hr, 12 mls/hr Meropenem 1 gm/ Dextrose 100 mls @ 200 mls/hr IVPB Q12H GAUTAM Last Admin: 08/20/19 02:10 Dose: 200 mls/hr Phenylephrine HCl 20,000 mcg/ (Sodium Chloride) 250 mls @ 75 mls/hr IVPB ASDIR GAUTAM; Protocol Last Titration: 08/20/19 05:05 Dose: 180 mcg/min, 135 mls/hr Potassium Chloride/Sodium Chloride (Ns+20 Meq Kcl -) 20 meq in 1,000 mls @ 200 mls/hr IV ASDIR GAUTAM Last Admin: 08/19/19 17:49 Dose: Not Given Vecuronium [place] 50 mg/ (Dextrose) 250 mls @ 33.82 mls/hr IVPB TITR GAUTAM Last Admin: 08/19/19 22:51 Dose: 1 mcg/kg/min, 33.82 mls/hr Clindamycin Phosphate (Cleocin 900 Mg Premix Ivpb -) 900 mg in 50 mls @ 100 mls /hr IVPB Q8H-IV GAUTAM; Protocol Last Admin: 08/20/19 10:14 Dose: 100 mls/hr Insulin Human Regular 100 (units/ Sodium Chloride) 100 mls @ 10 mls/hr IVPB TITR GAUTAM; Protocol Last Admin: 08/20/19 05:06 Dose: Not Given Sodium Phosphate 15 mm/ Sodium (Chloride) 255 mls @ 62.5 mls/hr IVPB ONCE ONE Stop: 08/20/19 12:52 Last Admin: 08/20/19 09:52 Dose: 62.5 mls/hr Potassium Chloride/Dextrose/Sod Cl (D5-1/2ns+20 Meq Kcl -) 20 meq in 1,000 mls @ 150 mls/hr IV ASDIR GAUTAM Famotidine/Sodium Chloride (Pepcid 20 Mg Premixed Ivpb -) 20 mg in 50 mls @ 100 mls/hr IVPB BID GAUTAM Last Admin: 08/20/19 11:45 Dose: 100 mls/hr Mupirocin (Bactroban Ointment (For Decolonization) -) 1 applic NS BID GAUTAM Stop: 08/24/19 21:59 Last Admin: 08/20/19 10:14 Dose: 1 applic - Objective Vital Signs: Vital Signs Temperature 100.3 F H 08/20/19 10:29 Pulse Rate 116 H 08/20/19 12:05 Respiratory Rate 26 H 08/20/19 12:05 Blood Pressure 126/71 08/20/19 12:05 O2 Sat by Pulse Oximetry (%) 78 L 08/19/19 21:29 Constitutional: Yes: Mild Distress Eyes: Yes: Conjunctiva Clear HENT: Yes: Atraumatic Cardiovascular: Yes: Tachycardia, S1, S2 Respiratory: Yes: Intubated, Mechanically Ventilated Gastrointestinal: Yes: Soft, Abdomen, Obese Genitourinary: Yes: Carey Present Musculoskeletal: Yes: Muscle Weakness Edema: No Integumentary: Yes: WNL Neurological: Yes: Lethargy Labs: CBC, BMP 08/20/19 07:00 08/20/19 08:36 INR, PTT INR 1.55 (0.83-1.09) H 08/20/19 07:00 Fibrinogen 380.0 mg/dL (238-498) 08/20/19 07:00 - ....Imaging Chest X-ray: Report Reviewed Problem List - Problems (1) LIYA (acute kidney injury) Code(s): N17.9 - ACUTE KIDNEY FAILURE, UNSPECIFIED (2) Hyperkalemia Code(s): E87.5 - HYPERKALEMIA (3) Acute respiratory failure Code(s): J96.00 - ACUTE RESPIRATORY FAILURE, UNSP W HYPOXIA OR HYPERCAPNIA (4) Diabetes mellitus Code(s): E11.9 - TYPE 2 DIABETES MELLITUS WITHOUT COMPLICATIONS Assessment/Plan Current Medications Generic Name Dose Route Start Last Admin Trade Name Freq PRN Reason Stop Dose Admin Chlorhexidine Gluconate 1 applic 08/19/19 22:00 08/19/19 21:52 Hibiclens For Decolonization - TP 1 applic HS GAUTAM Administration Hydrocortisone Sodium Succinate 50 mg 08/19/19 18:00 08/20/19 11:33 Solu-Cortef - IVPUSH 50 mg Q6H GAUTAM Administration Norepinephrine Bitartrate 4, 500 mls @ 37.5 mls/hr 08/19/19 12:00 08/20/19 05 :03 000 mcg/ Dextrose IV 30 mcg/min TITR GAUTAM 225 mls/hr Titration Protocol 5 MCG/MIN Midazolam HCl 100 mg in 100 mls @ 1 mls/hr 08/19/19 13:02 08/19/19 14:40 Midazolam 100mg/100ml-0.9%Nacl IVPB 3 mg/hr TITR GAUTAM 3 mls/hr Titration Protocol 1 MG/HR Vasopressin 50 units/ Sodium 100 mls @ 4 mls/hr 08/19/19 13:45 08/19/19 15:00 Chloride IVPB 6 units/hr ASDIR GAUTAM 12 mls/hr Titration Protocol 2 UNITS/HR Meropenem 1 gm/ Dextrose 100 mls @ 200 mls/hr 08/19/19 15:00 08/20/19 02:10 IVPB 200 mls/hr Q12H GAUTAM Administration As Directed Phenylephrine HCl 20,000 mcg/ 250 mls @ 75 mls/hr 08/19/19 15:15 08/20/19 05: 05 Sodium Chloride IVPB 180 mcg/min ASDIR GAUTAM 135 mls/hr Titration Protocol 100 MCG/MIN Potassium Chloride/Sodium Chloride 20 meq in 1,000 mls @ 200 mls/hr 08/19/19 15:30 08/19/19 17:49 Ns+20 Meq Kcl - IV Not Given ASDIR GAUTAM Vecuronium [place] 50 mg/ 250 mls @ 33.82 mls/hr 08/19/19 18:00 08/19/19 22: 51 Dextrose IVPB 1 mcg/kg/min TITR GAUTAM 33.82 mls/hr Administration 1 MCG/KG/MIN Clindamycin Phosphate 900 mg in 50 mls @ 100 mls/hr 08/19/19 19:15 08/20/19 10:14 Cleocin 900 Mg Premix Ivpb - IVPB 100 mls/hr Q8H-IV GAUTAM Administration Protocol Insulin Human Regular 100 100 mls @ 10 mls/hr 08/20/19 05:00 08/20/19 05:06 units/ Sodium Chloride IVPB Not Given TITR GAUTAM Protocol 10 UNITS/HR Sodium Phosphate 15 mm/ Sodium 255 mls @ 62.5 mls/hr 08/20/19 08:48 08/20/19 09:52 Chloride IVPB 08/20/19 12:52 62.5 mls/hr ONCE ONE Administration Potassium Chloride/Dextrose/Sod Cl 20 meq in 1,000 mls @ 150 mls/hr 08/20/19 09:15 D5-1/2ns+20 Meq Kcl - IV ASDIR GAUTAM Famotidine/Sodium Chloride 20 mg in 50 mls @ 100 mls/hr 08/20/19 11:30 11:45 Pepcid 20 Mg Premixed Ivpb - IVPB 100 mls/hr BID GAUTAM Administration Mupirocin 1 applic 08/19/19 22:00 08/20/19 10:14 Bactroban Ointment (For Decolonization) - NS 08/24/19 21:59 1 applic BID GAUTAM Administration Impression 1. LIYA 2. hyperkalemia resolved 3. acute respiratory failure 4. cardiac arrest 5. Down syndrome 6. DM (a1c is 13) 7. sever dka 8. leukocytosis 9. thrombocytopenia 10. rhabdo 11. positive troponin Plan - cont to monitor urine output - cont to monitor renal function - pt is making urine - pressors to a map of 65 - discussed with family - vent support - monitor glucose - obtain records from [facility] if possible - monitor blood sugar - monitor lytes - monitor in ICU
--- NOTE | 2019-08-20 13:42 | PN ---
Progress Note, Physician History of Present Illness: Mr. Lucas is a 24 yr old black man with PM history of Down's syndrome, morbid obesity, came to ER complaining of altered mental status. Patient was unable to give history, but at baseline reportedly normally would be able to. Patient's mother at bedside reported that he had been vomiting clear liquids for the past two days, but had not been complaining of abdominal pain. Denied fevers, chills. Denied reports of chest pain and shortness of breath. Patient's mother took him to [facility] prior evening after he had a syncopal episode while getting out of bed. No sick contacts. Up to date on vaccinations. No prior hospitalizations. Mother reported that his labs were normal and he was discharged after having normal labs and receiving 1L NS. Here, in ER, pt was found to have blood glucose 1,642 (?though not known to be diabetic). This morning, he became hypotensive, then had to be resusitated, including cardiac compressions (rhythm at the time unclear). Now intubated, with periods of agitation requiring restraints. - Current Medication List Current Medications: Active Medications Chlorhexidine Gluconate (Hibiclens For Decolonization -) 1 applic TP HS GAUTAM Last Admin: 08/19/19 21:52 Dose: 1 applic Hydrocortisone Sodium Succinate (Solu-Cortef -) 50 mg IVPUSH Q6H GAUTAM Last Admin: 08/20/19 11:33 Dose: 50 mg Norepinephrine Bitartrate 4, (000 mcg/ Dextrose) 500 mls @ 37.5 mls/hr IV TITR GAUTAM; Protocol Last Titration: 08/20/19 05:03 Dose: 30 mcg/min, 225 mls/hr Midazolam HCl (Midazolam 100mg/100ml-0.9%Nacl) 100 mg in 100 mls @ 1 mls/hr IVPB TITR GAUTAM; Protocol Last Titration: 08/19/19 14:40 Dose: 3 mg/hr, 3 mls/hr Vasopressin 50 units/ Sodium (Chloride) 100 mls @ 4 mls/hr IVPB ASDIR GAUTAM; Protocol Last Titration: 08/19/19 15:00 Dose: 6 units/hr, 12 mls/hr Meropenem 1 gm/ Dextrose 100 mls @ 200 mls/hr IVPB Q12H GAUTAM Last Admin: 08/20/19 02:10 Dose: 200 mls/hr Phenylephrine HCl 20,000 mcg/ (Sodium Chloride) 250 mls @ 75 mls/hr IVPB ASDIR GAUTAM; Protocol Last Titration: 08/20/19 05:05 Dose: 180 mcg/min, 135 mls/hr Potassium Chloride/Sodium Chloride (Ns+20 Meq Kcl -) 20 meq in 1,000 mls @ 200 mls/hr IV ASDIR GAUTAM Last Admin: 08/19/19 17:49 Dose: Not Given Vecuronium [place] 50 mg/ (Dextrose) 250 mls @ 33.82 mls/hr IVPB TITR GAUTAM Last Admin: 08/19/19 22:51 Dose: 1 mcg/kg/min, 33.82 mls/hr Clindamycin Phosphate (Cleocin 900 Mg Premix Ivpb -) 900 mg in 50 mls @ 100 mls /hr IVPB Q8H-IV GAUTAM; Protocol Last Admin: 08/20/19 10:14 Dose: 100 mls/hr Insulin Human Regular 100 (units/ Sodium Chloride) 100 mls @ 10 mls/hr IVPB TITR GAUTAM; Protocol Last Admin: 08/20/19 05:06 Dose: Not Given Potassium Chloride/Dextrose/Sod Cl (D5-1/2ns+20 Meq Kcl -) 20 meq in 1,000 mls @ 150 mls/hr IV ASDIR GAUTAM Famotidine/Sodium Chloride (Pepcid 20 Mg Premixed Ivpb -) 20 mg in 50 mls @ 100 mls/hr IVPB BID GAUTAM Last Admin: 08/20/19 11:45 Dose: 100 mls/hr Mupirocin (Bactroban Ointment (For Decolonization) -) 1 applic NS BID GAUTAM Stop: 08/24/19 21:59 Last Admin: 08/20/19 10:14 Dose: 1 applic - Objective Vital Signs: Vital Signs Temperature 100.3 F H 08/20/19 10:29 Pulse Rate 116 H 08/20/19 12:05 Respiratory Rate 26 H 08/20/19 12:05 Blood Pressure 126/71 08/20/19 12:05 O2 Sat by Pulse Oximetry (%) 78 L 08/19/19 21:29 Eyes: Yes: WNL, Conjunctiva Clear, EOM Intact HENT: Yes: WNL, Atraumatic, Normocephalic Neck: Yes: WNL, Supple, Trachea Midline Cardiovascular: Yes: Tachycardia Respiratory: Yes: Intubated, Mechanically Ventilated Gastrointestinal: Yes: WNL, Normal Bowel Sounds Genitourinary: Yes: WNL Musculoskeletal: Yes: WNL Extremities: Yes: WNL Edema: No Integumentary: Yes: WNL ...Motor Strength: WNL Psychiatric: Yes: WNL Labs: CBC, BMP 08/20/19 07:00 08/20/19 08:36 INR, PTT INR 1.55 (0.83-1.09) H 08/20/19 07:00 Fibrinogen 380.0 mg/dL (238-498) 08/20/19 07:00 Problem List - Problems (1) Acute respiratory failure Code(s): J96.00 - ACUTE RESPIRATORY FAILURE, UNSP W HYPOXIA OR HYPERCAPNIA (2) Cardiac arrest Code(s): I46.9 - CARDIAC ARREST, CAUSE UNSPECIFIED (3) Diabetes mellitus Code(s): E11.9 - TYPE 2 DIABETES MELLITUS WITHOUT COMPLICATIONS (4) Diastolic CHF Code(s): I50.30 - UNSPECIFIED DIASTOLIC (CONGESTIVE) HEART FAILURE (5) Hyperkalemia Code(s): E87.5 - HYPERKALEMIA (6) Renal dysfunction Code(s): N28.9 - DISORDER OF KIDNEY AND URETER, UNSPECIFIED Assessment/Plan - Problems (1) Acute respiratory failure Code(s): J96.00 - ACUTE RESPIRATORY FAILURE, UNSP W HYPOXIA OR HYPERCAPNIA (2) Diabetes mellitus Code(s): E11.9 - TYPE 2 DIABETES MELLITUS WITHOUT COMPLICATIONS (3) Hyperkalemia Assessment/Plan: 6.5-->now 4.3. Code(s): E87.5 - HYPERKALEMIA (4) Diastolic CHF Code(s): I50.30 - UNSPECIFIED DIASTOLIC (CONGESTIVE) HEART FAILURE (5) Cardiac arrest Assessment/Plan: On vasopressors (norepinephrine and vasopressin; midazolam, neosynephrine). Received ?several liters IVF in past 24 hours; f/u Is and Os, dailiy weight, BUN /Cr, electrolytes. F/u workup done the previous day at [facility]. Intubated; O2, bronchodilators, steroids, antibiotics per ID, mess cook. First TNI < 0.02; f/u serially. EKG: sinus tachycardia. ECHO: limited study; normal LVEF (ideally, repeat when able to position pt for better acoustic windows). F/u past hx, as Down's pts have increased risk for cardiopulmonary abnormalities, including ASD, MVP/MR, pulmonary HTN. awaiting possible transfer to [facility] for ECMO. Code(s): I46.9 - CARDIAC ARREST, CAUSE UNSPECIFIED (6) Renal dysfunction Code(s): N28.9 - DISORDER OF KIDNEY AND URETER, UNSPECIFIED Assessment/Plan CCU time spent: 36 minutes
[2019-08-20 14:00] LABS: ARTERIAL BLD GAS O2 SATURATION 58.9 % (95-98); ARTERIAL BLOOD GAS BASE EXCESS -11.6 meq/l (-2-2)
[2019-08-20] MEDS ORDERED: NOREPINEPHRINE BITARTRATE 8,000 MCG in SODIUM CHLORIDE 492 ML IV SCH (14:04)
[2019-08-20 14:08] LABS: ARTERIAL BLOOD GAS PO2 < 49 mmHg (80-100); ARTERIAL BLOOD GAS pH 7.03 (7.35-7.45)
[2019-08-20 14:24] LABS: BLOOD UREA NITROGEN 73.3 mg/dL (7-18); CREATININE 6.1 mg/dL (0.55-1.3); POTASSIUM 5.3 mmol/L (3.5-5.1)
[2019-08-20 14:45] LABS: CREATININE 6.1 mg/dL (0.55-1.3); POTASSIUM 5.5 mmol/L (3.5-5.1)
[2019-08-20 14:49] LABS: CALCIUM 5.9 mg/dL (8.5-10.1)
[2019-08-20] MEDS: VASOPRESSIN 50 UNITS in SODIUM CHLORIDE 97.5 ML IVPB SCH (15:00)
[2019-08-20] MEDS: MIDAZOLAM IN 0.9 % SOD.CHLORID 100 MG/100 ML PLAST..BAG IVPB SCH (15:00)
[2019-08-20] MEDS ORDERED: INSULIN SLIDING SCALE (NOVOLOG) 1 VIAL SQ SCH ×2 (16:30→21:00)
[2019-08-20 16:39] LABS: ARTERIAL BLD GAS O2 SATURATION 70.2 % (95-98); ARTERIAL BLOOD GAS BASE EXCESS -13.4 meq/l (-2-2)
[2019-08-20] MEDS ORDERED: SODIUM CHLORIDE 1,000 ML IV SCH (16:45)
[2019-08-20 16:46] LABS: ARTERIAL BLOOD GAS PCO2 70.7 mmHg (35-45)
[2019-08-20 16:48] LABS: ARTERIAL BLOOD GAS pH 7.05 (7.35-7.45)
[2019-08-20] MEDS ORDERED: SODIUM BICARBONATE 8.4% 50 MEQ/50 ML DISP.SYRIN IVPUSH ONE ×2 (16:56→17:47)
[2019-08-20 16:58] LABS: BLOOD UREA NITROGEN 73.3 mg/dL (7-18); CREATININE 6.2 mg/dL (0.55-1.3)
[2019-08-20] MEDS ORDERED: SODIUM BICARBONATE 8.4% 50 MEQ/50 ML VIAL IV SCH (17:00)
[2019-08-20 17:07] LABS: POTASSIUM 6.1 mmol/L (3.5-5.1)
[2019-08-20 17:08] LABS: CALCIUM 6.1 mg/dL (8.5-10.1)
[2019-08-20] MEDS ORDERED: SODIUM BICARBONATE 8.4% 50 MEQ/50 ML VIAL ONE ×2 (17:24→17:56)
--- NOTE | 2019-08-20 17:34 | PN ---
Teaching Attending Note Name of Resident: Aiyana Mendoza ATTENDING PHYSICIAN STATEMENT I saw and evaluated the patient. I reviewed the resident's note and discussed the case with the resident. I agree with the resident's findings and plan as documented. SUBJECTIVE: Pt seen and examined in the ICU. Remains intubated, sedated, paralyzed on multiple pressors. Continues to be hypoxic. OBJECTIVE: Vital Signs Temperature 99.3 F 08/20/19 14:00 Pulse Rate 131 H 08/20/19 16:36 Respiratory Rate 26 H 08/20/19 16:36 Blood Pressure 114/53 L 08/20/19 16:36 O2 Sat by Pulse Oximetry (%) 78 L 08/19/19 21:29 GENERAL: paralyzed, intubated, and sedated. HEAD: Normal with no signs of trauma. EYES: sclera anicteric, conjunctiva clear. ENT: Ears normal, oropharynx very dry mucus membrane. positive for ET tube NECK: Trachea midline. LUNGS: intubated , decreased Breath sounds bl. HEART: tachycardic ,S1, S2 positive ,no rub or gallop. ABDOMEN: Soft, nontender, nondistended, normoactive bowel sounds, no guarding, no rebound. EXTREMITIES: 2+ pulses, warm, no edema. NEUROLOGICAL: Cranial nerves II through XII grossly intact. PSYCH: unable to access SKIN: Warm, very dry mucus membrane CBCD WBC 9.9 K/mm3 (4.0-10.0) 08/20/19 07:00 RBC 3.73 M/mm3 (4.00-5.60) L 08/20/19 07:00 Hgb 11.6 GM/dL (11.7-16.9) L 08/20/19 07:00 Hct 35.2 % (35.4-49) L 08/20/19 07:00 MCV 94.3 fl (80-96) 08/20/19 07:00 MCHC 32.9 g/dl (32.0-35.9) 08/20/19 07:00 RDW 15.5 % (11.9-15.9) 08/20/19 07:00 Plt Count 34 K/MM3 (134-434) L* 08/20/19 07:00 MPV 12.0 fl (7.5-11.1) H 08/20/19 07:00 CMP Sodium 141 mmol/L (136-145) 08/20/19 16:00 Potassium 6.1 mmol/L (3.5-5.1) H* 08/20/19 16:00 Chloride 112 mmol/L (98-107) H 08/20/19 16:00 Carbon Dioxide 23 mmol/L (21-32) 08/20/19 16:00 Anion Gap 6 MMOL/L (8-16) L 08/20/19 16:00 BUN 73.3 mg/dL (7-18) H 08/20/19 16:00 Creatinine 6.2 mg/dL (0.55-1.3) H 08/20/19 16:00 Random Glucose 372 mg/dL (74-106) H 08/20/19 16:00 Calcium 6.1 mg/dL (8.5-10.1) L* 08/20/19 16:00 Total Bilirubin 0.3 mg/dL (0.2-1) 08/20/19 07:00 AST 131 U/L (15-37) H 08/20/19 07:00 ALT 56 U/L (13-61) 08/20/19 07:00 Alkaline Phosphatase 69 U/L (45-117) 08/20/19 07:00 Total Protein 5.0 g/dl (6.4-8.2) L 08/20/19 07:00 Albumin 1.8 g/dl (3.4-5.0) L 08/20/19 07:00 CARDIAC ENZYMES Creatine Kinase 5078 U/L (26-308) H 08/20/19 08:36 Troponin I 1.43 ng/ml (0.00-0.05) H* 08/20/19 12:48 Current Medications Generic Name Dose Route Start Last Admin Trade Name Freq PRN Reason Stop Dose Admin Chlorhexidine Gluconate 1 applic 08/19/19 22:00 08/19/19 21:52 Hibiclens For Decolonization - TP 1 applic HS GAUTAM Administration Hydrocortisone Sodium Succinate 50 mg 08/19/19 18:00 08/20/19 17:17 Solu-Cortef - IVPUSH 50 mg Q6H GAUTAM Administration Midazolam HCl 100 mg in 100 mls @ 1 mls/hr 08/19/19 13:02 08/19/19 14:40 Midazolam 100mg/100ml-0.9%Nacl IVPB 3 mg/hr TITR GAUTAM 3 mls/hr Titration Protocol 1 MG/HR Vasopressin 50 units/ Sodium 100 mls @ 4 mls/hr 08/19/19 13:45 08/19/19 15:00 Chloride IVPB 6 units/hr ASDIR GAUTAM 12 mls/hr Titration Protocol 2 UNITS/HR Meropenem 1 gm/ Dextrose 100 mls @ 200 mls/hr 08/19/19 15:00 08/20/19 16:27 IVPB 200 mls/hr Q12H GAUTAM Administration As Directed Phenylephrine HCl 20,000 mcg/ 250 mls @ 75 mls/hr 08/19/19 15:15 08/20/19 05: 05 Sodium Chloride IVPB 180 mcg/min ASDIR GAUTAM 135 mls/hr Titration Protocol 100 MCG/MIN Vecuronium [place] 50 mg/ 250 mls @ 33.82 mls/hr 08/19/19 18:00 08/19/19 22: 51 Dextrose IVPB 1 mcg/kg/min TITR GAUTAM 33.82 mls/hr Administration 1 MCG/KG/MIN Clindamycin Phosphate 900 mg in 50 mls @ 100 mls/hr 08/19/19 19:15 08/20/19 17:17 Cleocin 900 Mg Premix Ivpb - IVPB 100 mls/hr Q8H-IV GAUTAM Administration Protocol Famotidine/Sodium Chloride 20 mg in 50 mls @ 100 mls/hr 08/20/19 11:30 11:45 Pepcid 20 Mg Premixed Ivpb - IVPB 100 mls/hr BID GAUTAM Administration Norepinephrine Bitartrate 8, 500 mls @ 18.75 mls/hr 08/20/19 14:04 000 mcg/ Sodium Chloride IV TITR GAUTAM Protocol 5 MCG/MIN Sodium Chloride 1,000 mls @ 100 mls/hr 08/20/19 16:45 08/20/19 17:16 Normal Saline - IV 100 mls/hr ASDIR GAUTAM Administration Insulin Aspart 1 vial 08/20/19 16:30 08/20/19 16:37 Novolog Vial Sliding Scale - SQ 10 units TIDAC GAUTAM Administration Protocol Mupirocin 1 applic 08/19/19 22:00 08/20/19 10:14 Bactroban Ointment (For Decolonization) - NS 08/24/19 21:59 1 applic BID GAUTAM Administration Sodium Bicarbonate 100 meq 08/20/19 17:00 Sodium Bicarbonate 8.4% - IV Q12H [facility] Home Medications Medication Instructions Recorded NK [No Known Home Medication] 08/19/19 Microbiology 08/19/19 14:12 Thigh - Right Gram Stain - Final 08/19/19 14:12 Thigh - Right Wound Culture - Preliminary Staphylococcus Coagulase Neg 08/19/19 08:42 Urine - Urine Clean Catch Urine Culture - Final NO GROWTH OBTAINED 08/19/19 20:30 Urine For Antigen Detection Legionella Antigen - Final 08/19/19 20:30 Urine For Antigen Detection Streptococcus pneumoniae Antigen (M - Final 08/19/19 08:42 Blood - Peripheral Venous Blood Culture - Preliminary NO GROWTH OBTAINED AFTER 24 HOURS, INCUBATION TO CONTINUE FOR 4 DAYS. 08/19/19 08:42 Blood - Peripheral Venous Blood Culture - Preliminary NO GROWTH OBTAINED AFTER 24 HOURS, INCUBATION TO CONTINUE FOR 4 DAYS. 08/19/19 04:05 Blood - Peripheral Venous Blood Culture - Preliminary NO GROWTH OBTAINED AFTER 24 HOURS, INCUBATION TO CONTINUE FOR 4 DAYS. 08/19/19 04:05 Blood - Peripheral Venous Blood Culture - Preliminary NO GROWTH OBTAINED AFTER 24 HOURS, INCUBATION TO CONTINUE FOR 4 DAYS. CXR: worsened parenchymal changes with bl airspace opacities L>R bl pleural effusion. ASSESSMENT AND PLAN: Patient is a 24 year old male with pmhx of Down Syndrome who presents to the ER with altered mental status, and was found to have elevated blood glucose of 1642 ,and was found to be in DKA. # Acute DKA with lactic acidosis #Acute respiratory failure cannot r/o Pneumonia #acute renal failure improving # s/p Cardiapulmonary arrest # Acute thrombocytopenia will dc heparin drip, DIC w/u #Severe dehydration #elevated Lipase cannot r/o Acute pancreatitis, most likely due to his elevated blood sugar over 1600. #Sepsis with ARDS #Tropenemia due to demand ischemia #Acute hypophosphetemia # Hx of Down Syndrome Plan: ICU, Inspector Plug Seam/ID/PUlmonary/nephro/endocrine/cardiac consult appreciated Ventilator management per ICU team continue IVF 0.9NS ,s/p Insulin drip , on sliding scale , Vitals every hour, Is and Os. pressors Norepi, phenelepherine, bicarbs, maintain MAP >65 IV antibiotics per ID , septic w/u as above ,lactic acid trending down replete phos and electrolytes monitor urine output, creatinine continue ICU monitoring prognosis guarded transfer to tertiary care for possible ECMO. [facility] transfer center was contacted.
[2019-08-20] MEDS ORDERED: SODIUM CHLORIDE 1,000 ML with SODIUM BICARBONATE 8.4% - 150 MEQ IV SCH ×2 (17:45→23:44)
[2019-08-20] MEDS ORDERED: DEXTROSE 5%-WATER - 1,000 ML with SODIUM BICARBONATE 8.4% - 100 MEQ IV SCH (17:45)
[2019-08-20] MEDS: PHENYLEPHRINE HCL 20,000 MCG in SODIUM CHLORIDE 248 ML IVPB SCH (18:39)
--- NOTE | 2019-08-20 18:40 | PN ---
Physical Exam: SUBJECTIVE: Patient seen and examined at the bedside. S/p code in ED now intubated with R side femoral line on multiple drips and antibiotics. Per nursing note: 1. levophed maxed at 40mcg, 2. vasopressin maxed at 6units, 3. nor epi maxed at 200mcg, 4. IV fluids NS w/20kcl @ 150cc, 5. Insulin drip at 15 units, 6.Heparin drip at 1000units, 7.versed drip at 3mg 8. vercuronium drip at 33cc. train of four being done, has 4 twitches. Pt continues to be hypotensive and hypoxic, on vent with setting AC24/TV450/Fio2 100%/PEEP 14 O2 sat 70%. OBJECTIVE: Vital Signs Period Temp Pulse Resp BP Sys/Stovall Pulse Ox Last 24 Hr 97.2 F-100.3 F 116-135 24-37 63-126/26-77 78 GENERAL: The patient is obtunded, obese, responsive to noxious stimuli HEAD: Normal with no signs of trauma. EYES: PERRL, extraocular movements intact, sclera anicteric, conjunctiva clear. No ptosis. ENT: Ears normal, nares patent, extremely dry mucous membranes, tongue with cracks and fissures NECK: Trachea midline, supple. LUNGS: Breath sounds equal, clear to auscultation bilaterally, no wheezes, no crackles- on anterior lung castaneda, patient was unable to turn HEART: Regular rhythm, S1, S2, tachycardic ABDOMEN: Soft, nontender,obese, normoactive bowel sounds EXTREMITIES: 2+ pulses, warm, well-perfused, no edema. NEUROLOGICAL:unable to assess SKIN: Warm, dry, normal turgor, no rashes Laboratory Results - last 24 hr 08/19/19 08/19/19 08/19/19 19:59 20:05 21:11 WBC RBC Hgb Hct MCV MCH MCHC RDW Plt Count MPV Absolute Neuts (auto) Neutrophils % Neutrophils % (Manual) Band Neutrophils % Lymphocytes % Lymphocytes % (Manual) Monocytes % Monocytes % (Manual) Eosinophils % Eosinophils % (Manual) Basophils % Basophils % (Manual) Myelocytes % (Man) Promyelocytes % (Man) Blast Cells % (Manual) Nucleated RBC % Metamyelocytes Hypochromia Platelet Estimate Polychromasia Poikilocytosis Anisocytosis Microcytosis Macrocytosis Tear Drop Cells Ovalocytes PT with INR INR PTT (Actin FS) Fibrinogen Anticoagulation Therapy Puncture Site ABG pH ABG pCO2 at Pt Temp ABG pO2 at Pt Temp ABG HCO3 ABG O2 Sat (Measured) ABG O2 Content ABG Base Excess Moisés Test O2 Delivery Device Oxygen Flow Rate Vent Mode Vent Rate Mechanical Rate PEEP Pressure Support Vent Sodium 145 Potassium 3.7 Chloride 112 H Carbon Dioxide 20 L Anion Gap 13 BUN 80.7 H Creatinine 6.8 H Est GFR (CKD-EPI)AfAm 12.14 Est GFR (CKD-EPI)NonAf 10.48 POC Glucometer > 600 > 600 Random Glucose 674 H* Lactic Acid Calcium 7.0 L Phosphorus Magnesium Total Bilirubin AST ALT Alkaline Phosphatase Creatine Kinase Creatine Kinase Index CK-MB (CK-2) Troponin I Total Protein Albumin Triglycerides Lipase Random Vancomycin 08/19/19 08/19/19 08/20/19 22:09 23:07 00:00 WBC RBC Hgb Hct MCV MCH MCHC RDW Plt Count MPV Absolute Neuts (auto) Neutrophils % Neutrophils % (Manual) Band Neutrophils % Lymphocytes % Lymphocytes % (Manual) Monocytes % Monocytes % (Manual) Eosinophils % Eosinophils % (Manual) Basophils % Basophils % (Manual) Myelocytes % (Man) Promyelocytes % (Man) Blast Cells % (Manual) Nucleated RBC % Metamyelocytes Hypochromia Platelet Estimate Polychromasia Poikilocytosis Anisocytosis Microcytosis Macrocytosis Tear Drop Cells Ovalocytes PT with INR INR PTT (Actin FS) Fibrinogen Anticoagulation Therapy Puncture Site ABG pH ABG pCO2 at Pt Temp ABG pO2 at Pt Temp ABG HCO3 ABG O2 Sat (Measured) ABG O2 Content ABG Base Excess Moisés Test O2 Delivery Device Oxygen Flow Rate Vent Mode Vent Rate Mechanical Rate PEEP Pressure Support Vent Sodium 145 Potassium 3.7 Chloride 114 H Carbon Dioxide 20 L Anion Gap 11 BUN 77.6 H Creatinine 6.6 H Est GFR (CKD-EPI)AfAm 12.59 Est GFR (CKD-EPI)NonAf 10.86 POC Glucometer 576 531 Random Glucose 483 H* Lactic Acid Calcium 6.9 L* Phosphorus Magnesium Total Bilirubin AST ALT Alkaline Phosphatase Creatine Kinase Creatine Kinase Index CK-MB (CK-2) Troponin I Total Protein Albumin Triglycerides Lipase Random Vancomycin 08/20/19 08/20/19 08/20/19 00:00 00:00 00:05 WBC 4.2 RBC 3.98 L Hgb 12.4 Hct 37.9 D MCV 95.3 D MCH 31.1 MCHC 32.7 RDW 15.6 D Plt Count 42 L D MPV 12.3 H Absolute Neuts (auto) Neutrophils % Neutrophils % (Manual) Band Neutrophils % Lymphocytes % Lymphocytes % (Manual) Monocytes % Monocytes % (Manual) Eosinophils % Eosinophils % (Manual) Basophils % Basophils % (Manual) Myelocytes % (Man) Promyelocytes % (Man) Blast Cells % (Manual) Nucleated RBC % Metamyelocytes Hypochromia Platelet Estimate Polychromasia Poikilocytosis Anisocytosis Microcytosis Macrocytosis Tear Drop Cells Ovalocytes PT with INR INR PTT (Actin FS) Fibrinogen Anticoagulation Therapy Puncture Site ABG pH ABG pCO2 at Pt Temp ABG pO2 at Pt Temp ABG HCO3 ABG O2 Sat (Measured) ABG O2 Content ABG Base Excess Moisés Test O2 Delivery Device Oxygen Flow Rate Vent Mode Vent Rate Mechanical Rate PEEP Pressure Support Vent Sodium Potassium Chloride Carbon Dioxide Anion Gap BUN Creatinine Est GFR (CKD-EPI)AfAm Est GFR (CKD-EPI)NonAf POC Glucometer 555 Random Glucose Lactic Acid 4.3 H* Calcium Phosphorus Magnesium Total Bilirubin AST ALT Alkaline Phosphatase Creatine Kinase Creatine Kinase Index CK-MB (CK-2) Troponin I Total Protein Albumin Triglycerides Lipase Random Vancomycin 08/20/19 08/20/19 08/20/19 02:04 03:13 04:23 WBC RBC Hgb Hct MCV MCH MCHC RDW Plt Count MPV Absolute Neuts (auto) Neutrophils % Neutrophils % (Manual) Band Neutrophils % Lymphocytes % Lymphocytes % (Manual) Monocytes % Monocytes % (Manual) Eosinophils % Eosinophils % (Manual) Basophils % Basophils % (Manual) Myelocytes % (Man) Promyelocytes % (Man) Blast Cells % (Manual) Nucleated RBC % Metamyelocytes Hypochromia Platelet Estimate Polychromasia Poikilocytosis Anisocytosis Microcytosis Macrocytosis Tear Drop Cells Ovalocytes PT with INR INR PTT (Actin FS) Fibrinogen Anticoagulation Therapy Puncture Site ABG pH ABG pCO2 at Pt Temp ABG pO2 at Pt Temp ABG HCO3 ABG O2 Sat (Measured) ABG O2 Content ABG Base Excess Moisés Test O2 Delivery Device Oxygen Flow Rate Vent Mode Vent Rate Mechanical Rate PEEP Pressure Support Vent Sodium Potassium Chloride Carbon Dioxide Anion Gap BUN Creatinine Est GFR (CKD-EPI)AfAm Est GFR (CKD-EPI)NonAf POC Glucometer 367 346 392 Random Glucose Lactic Acid Calcium Phosphorus Magnesium Total Bilirubin AST ALT Alkaline Phosphatase Creatine Kinase Creatine Kinase Index CK-MB (CK-2) Troponin I Total Protein Albumin Triglycerides Lipase Random Vancomycin 08/20/19 08/20/19 08/20/19 05:09 06:14 06:50 WBC RBC Hgb Hct MCV MCH MCHC RDW Plt Count MPV Absolute Neuts (auto) Neutrophils % Neutrophils % (Manual) Band Neutrophils % Lymphocytes % Lymphocytes % (Manual) Monocytes % Monocytes % (Manual) Eosinophils % Eosinophils % (Manual) Basophils % Basophils % (Manual) Myelocytes % (Man) Promyelocytes % (Man) Blast Cells % (Manual) Nucleated RBC % Metamyelocytes Hypochromia Platelet Estimate Polychromasia Poikilocytosis Anisocytosis Microcytosis Macrocytosis Tear Drop Cells Ovalocytes PT with INR INR PTT (Actin FS) Fibrinogen Anticoagulation Therapy Puncture Site Right femoral ABG pH 7.21 L ABG pCO2 at Pt Temp 46.2 H ABG pO2 at Pt Temp < 49 L* ABG HCO3 17.9 L ABG O2 Sat (Measured) 77.3 L ABG O2 Content No Result Required. ABG Base Excess -9.4 L Moisés Test No Result Required. O2 Delivery Device Oxygen Flow Rate 100% Vent Mode A/c vc Vent Rate 24 Mechanical Rate PEEP 14.0 Pressure Support Vent 450 Sodium Potassium Chloride Carbon Dioxide Anion Gap BUN Creatinine Est GFR (CKD-EPI)AfAm Est GFR (CKD-EPI)NonAf POC Glucometer 285 291 Random Glucose Lactic Acid Calcium Phosphorus Magnesium Total Bilirubin AST ALT Alkaline Phosphatase Creatine Kinase Creatine Kinase Index CK-MB (CK-2) Troponin I Total Protein Albumin Triglycerides Lipase Random Vancomycin 08/20/19 08/20/19 08/20/19 07:00 07:00 07:00 WBC 9.9 RBC 3.73 L Hgb 11.6 L Hct 35.2 L MCV 94.3 MCH 31.1 MCHC 32.9 RDW 15.5 Plt Count 34 L* MPV 12.0 H Absolute Neuts (auto) 8.3 H Neutrophils % 84.2 H Neutrophils % (Manual) 29.6 L Band Neutrophils % 19.4 Lymphocytes % 8.4 D Lymphocytes % (Manual) 9.2 Monocytes % 6.5 Monocytes % (Manual) 9 Eosinophils % 0.4 D Eosinophils % (Manual) 1.0 Basophils % 0.5 Basophils % (Manual) 1.0 Myelocytes % (Man) 3 H Promyelocytes % (Man) 0 Blast Cells % (Manual) 0 Nucleated RBC % 0 Metamyelocytes 24 H Hypochromia 0 Platelet Estimate Decreased Polychromasia 0 Poikilocytosis 0 Anisocytosis 1+ Microcytosis 0 Macrocytosis 1+ Tear Drop Cells 1+ Ovalocytes 1+ PT with INR INR PTT (Actin FS) Fibrinogen Anticoagulation Therapy Puncture Site ABG pH ABG pCO2 at Pt Temp ABG pO2 at Pt Temp ABG HCO3 ABG O2 Sat (Measured) ABG O2 Content ABG Base Excess Moisés Test O2 Delivery Device Oxygen Flow Rate Vent Mode Vent Rate Mechanical Rate PEEP Pressure Support Vent Sodium 146 H Potassium 4.6 Chloride 118 H Carbon Dioxide 20 L Anion Gap 8 BUN 76.4 H Creatinine 6.1 H Est GFR (CKD-EPI)AfAm 13.85 Est GFR (CKD-EPI)NonAf 11.95 POC Glucometer Random Glucose 337 H Lactic Acid Calcium 6.3 L* Phosphorus 2.1 L Magnesium 1.7 L Total Bilirubin 0.3 AST 131 H ALT 56 Alkaline Phosphatase 69 Creatine Kinase 5026 H Creatine Kinase Index 0.3 CK-MB (CK-2) 15.5 H Troponin I Total Protein 5.0 L Albumin 1.8 L Triglycerides 285 H Lipase 2385 H Random Vancomycin 14.4 L 08/20/19 08/20/19 08/20/19 07:00 07:00 07:00 WBC RBC Hgb Hct MCV MCH MCHC RDW Plt Count MPV Absolute Neuts (auto) Neutrophils % Neutrophils % (Manual) Band Neutrophils % Lymphocytes % Lymphocytes % (Manual) Monocytes % Monocytes % (Manual) Eosinophils % Eosinophils % (Manual) Basophils % Basophils % (Manual) Myelocytes % (Man) Promyelocytes % (Man) Blast Cells % (Manual) Nucleated RBC % Metamyelocytes Hypochromia Platelet Estimate Polychromasia Poikilocytosis Anisocytosis Microcytosis Macrocytosis Tear Drop Cells Ovalocytes PT with INR 18.40 H INR 1.55 H PTT (Actin FS) 40.2 H Fibrinogen Anticoagulation Therapy Puncture Site ABG pH ABG pCO2 at Pt Temp ABG pO2 at Pt Temp ABG HCO3 ABG O2 Sat (Measured) ABG O2 Content ABG Base Excess Moisés Test O2 Delivery Device Oxygen Flow Rate Vent Mode Vent Rate Mechanical Rate PEEP Pressure Support Vent Sodium Potassium Chloride Carbon Dioxide Anion Gap BUN Creatinine Est GFR (CKD-EPI)AfAm Est GFR (CKD-EPI)NonAf POC Glucometer Random Glucose Lactic Acid 2.7 H* Calcium Phosphorus Magnesium Total Bilirubin AST ALT Alkaline Phosphatase Creatine Kinase Creatine Kinase Index CK-MB (CK-2) Troponin I Total Protein Albumin Triglycerides Lipase Random Vancomycin 08/20/19 08/20/19 08/20/19 07:00 08:36 10:48 WBC RBC Hgb Hct MCV MCH MCHC RDW Plt Count MPV Absolute Neuts (auto) Neutrophils % Neutrophils % (Manual) Band Neutrophils % Lymphocytes % Lymphocytes % (Manual) Monocytes % Monocytes % (Manual) Eosinophils % Eosinophils % (Manual) Basophils % Basophils % (Manual) Myelocytes % (Man) Promyelocytes % (Man) Blast Cells % (Manual) Nucleated RBC % Metamyelocytes Hypochromia Platelet Estimate Polychromasia Poikilocytosis Anisocytosis Microcytosis Macrocytosis Tear Drop Cells Ovalocytes PT with INR INR PTT (Actin FS) Fibrinogen 380.0 Anticoagulation Therapy Puncture Site ABG pH ABG pCO2 at Pt Temp ABG pO2 at Pt Temp ABG HCO3 ABG O2 Sat (Measured) ABG O2 Content ABG Base Excess Moisés Test O2 Delivery Device Oxygen Flow Rate Vent Mode Vent Rate Mechanical Rate PEEP Pressure Support Vent Sodium 146 H Potassium 4.7 Chloride 115 H Carbon Dioxide 21 Anion Gap 9 BUN 72.4 H Creatinine 6.3 H Est GFR (CKD-EPI)AfAm 13.32 Est GFR (CKD-EPI)NonAf 11.49 POC Glucometer 309 Random Glucose 322 H Lactic Acid Calcium 6.2 L* Phosphorus Magnesium Total Bilirubin AST ALT Alkaline Phosphatase Creatine Kinase 5078 H Creatine Kinase Index 0.3 CK-MB (CK-2) 15.4 H Troponin I 1.25 H* Total Protein Albumin Triglycerides Lipase Random Vancomycin 08/20/19 08/20/19 08/20/19 12:33 12:48 13:35 WBC RBC Hgb Hct MCV MCH MCHC RDW Plt Count MPV Absolute Neuts (auto) Neutrophils % Neutrophils % (Manual) Band Neutrophils % Lymphocytes % Lymphocytes % (Manual) Monocytes % Monocytes % (Manual) Eosinophils % Eosinophils % (Manual) Basophils % Basophils % (Manual) Myelocytes % (Man) Promyelocytes % (Man) Blast Cells % (Manual) Nucleated RBC % Metamyelocytes Hypochromia Platelet Estimate Polychromasia Poikilocytosis Anisocytosis Microcytosis Macrocytosis Tear Drop Cells Ovalocytes PT with INR INR PTT (Actin FS) Fibrinogen Anticoagulation Therapy No Result Required. Puncture Site Arterial line ABG pH 7.03 L* ABG pCO2 at Pt Temp 81.0 H* ABG pO2 at Pt Temp < 49 L* ABG HCO3 20.2 L ABG O2 Sat (Measured) 58.9 L ABG O2 Content No Result Required. ABG Base Excess -11.6 L Moisés Test Not applicable O2 Delivery Device Mech vent Oxygen Flow Rate 100% Vent Mode A/c Vent Rate 30 Mechanical Rate Yes PEEP 20.0 Pressure Support Vent 300 Sodium 144 Potassium 5.3 H Chloride 114 H Carbon Dioxide 23 Anion Gap 7 L BUN 73.3 H Creatinine 6.1 H Est GFR (CKD-EPI)AfAm 13.85 Est GFR (CKD-EPI)NonAf 11.95 POC Glucometer 294 Random Glucose 306 H Lactic Acid Calcium 6.0 L* Phosphorus Magnesium Total Bilirubin AST ALT Alkaline Phosphatase Creatine Kinase Creatine Kinase Index CK-MB (CK-2) Troponin I 1.43 H* Total Protein Albumin Triglycerides Lipase Random Vancomycin 08/20/19 08/20/19 08/20/19 13:45 15:44 16:00 WBC RBC Hgb Hct MCV MCH MCHC RDW Plt Count MPV Absolute Neuts (auto) Neutrophils % Neutrophils % (Manual) Band Neutrophils % Lymphocytes % Lymphocytes % (Manual) Monocytes % Monocytes % (Manual) Eosinophils % Eosinophils % (Manual) Basophils % Basophils % (Manual) Myelocytes % (Man) Promyelocytes % (Man) Blast Cells % (Manual) Nucleated RBC % Metamyelocytes Hypochromia Platelet Estimate Polychromasia Poikilocytosis Anisocytosis Microcytosis Macrocytosis Tear Drop Cells Ovalocytes PT with INR INR PTT (Actin FS) Fibrinogen Anticoagulation Therapy No Result Required. Puncture Site Left radial ABG pH 7.05 L* ABG pCO2 at Pt Temp 70.7 H* ABG pO2 at Pt Temp No Result Required. ABG HCO3 18.6 L ABG O2 Sat (Measured) 70.2 L ABG O2 Content No Result Required. ABG Base Excess -13.4 L Moisés Test Not applicable O2 Delivery Device Mechanical vent Oxygen Flow Rate 100% Vent Mode No Result Required. Vent Rate 36 Mechanical Rate A/c PEEP 20.0 Pressure Support Vent 350 Sodium 143 141 Potassium 5.5 H 6.1 H* Chloride 113 H 112 H Carbon Dioxide 23 23 Anion Gap 7 L 6 L BUN 73.0 H 73.3 H Creatinine 6.1 H 6.2 H Est GFR (CKD-EPI)AfAm 13.85 13.58 Est GFR (CKD-EPI)NonAf 11.95 11.72 POC Glucometer Random Glucose 343 H 372 H Lactic Acid Calcium 5.9 L* 6.1 L* Phosphorus Magnesium Total Bilirubin AST ALT Alkaline Phosphatase Creatine Kinase Creatine Kinase Index CK-MB (CK-2) Troponin I Total Protein Albumin Triglycerides Lipase Random Vancomycin 08/20/19 08/20/19 16:00 16:32 WBC RBC Hgb Hct MCV MCH MCHC RDW Plt Count MPV Absolute Neuts (auto) Neutrophils % Neutrophils % (Manual) Band Neutrophils % Lymphocytes % Lymphocytes % (Manual) Monocytes % Monocytes % (Manual) Eosinophils % Eosinophils % (Manual) Basophils % Basophils % (Manual) Myelocytes % (Man) Promyelocytes % (Man) Blast Cells % (Manual) Nucleated RBC % Metamyelocytes Hypochromia Platelet Estimate Polychromasia Poikilocytosis Anisocytosis Microcytosis Macrocytosis Tear Drop Cells Ovalocytes PT with INR INR PTT (Actin FS) Fibrinogen Anticoagulation Therapy Puncture Site ABG pH ABG pCO2 at Pt Temp ABG pO2 at Pt Temp ABG HCO3 ABG O2 Sat (Measured) ABG O2 Content ABG Base Excess Moisés Test O2 Delivery Device Oxygen Flow Rate Vent Mode Vent Rate Mechanical Rate PEEP Pressure Support Vent Sodium Potassium Chloride Carbon Dioxide Anion Gap BUN Creatinine Est GFR (CKD-EPI)AfAm Est GFR (CKD-EPI)NonAf POC Glucometer 361 Random Glucose Lactic Acid 1.8 Calcium Phosphorus Magnesium Total Bilirubin AST ALT Alkaline Phosphatase Creatine Kinase Creatine Kinase Index CK-MB (CK-2) Troponin I Total Protein Albumin Triglycerides Lipase Random Vancomycin Active Medications Generic Name Dose Route Start Last Admin Trade Name Freq PRN Reason Stop Dose Admin Chlorhexidine Gluconate 1 applic 08/19/19 22:00 08/19/19 21:52 Hibiclens For Decolonization - TP 1 applic HS GAUTAM Administration Hydrocortisone Sodium Succinate 50 mg 08/19/19 18:00 08/20/19 17:17 Solu-Cortef - IVPUSH 50 mg Q6H GAUTAM Administration Midazolam HCl 100 mg in 100 mls @ 1 mls/hr 08/19/19 13:02 08/19/19 14:40 Midazolam 100mg/100ml-0.9%Nacl IVPB 3 mg/hr TITR GAUTAM 3 mls/hr Titration Protocol 1 MG/HR Vasopressin 50 units/ Sodium 100 mls @ 4 mls/hr 08/19/19 13:45 08/19/19 15:00 Chloride IVPB 6 units/hr ASDIR GAUTAM 12 mls/hr Titration Protocol 2 UNITS/HR Meropenem 1 gm/ Dextrose 100 mls @ 200 mls/hr 08/19/19 15:00 08/20/19 16:27 IVPB 200 mls/hr Q12H GAUTAM Administration As Directed Phenylephrine HCl 20,000 mcg/ 250 mls @ 75 mls/hr 08/19/19 15:15 08/20/19 05: 05 Sodium Chloride IVPB 180 mcg/min ASDIR GAUTAM 135 mls/hr Titration Protocol 100 MCG/MIN Vecuronium [place] 50 mg/ 250 mls @ 33.82 mls/hr 08/19/19 18:00 08/19/19 22: 51 Dextrose IVPB 1 mcg/kg/min TITR GAUTAM 33.82 mls/hr Administration 1 MCG/KG/MIN Clindamycin Phosphate 900 mg in 50 mls @ 100 mls/hr 08/19/19 19:15 08/20/19 17:17 Cleocin 900 Mg Premix Ivpb - IVPB 100 mls/hr Q8H-IV GAUTAM Administration Protocol Famotidine/Sodium Chloride 20 mg in 50 mls @ 100 mls/hr 08/20/19 11:30 11:45 Pepcid 20 Mg Premixed Ivpb - IVPB 100 mls/hr BID GAUTAM Administration Norepinephrine Bitartrate 8, 500 mls @ 18.75 mls/hr 08/20/19 14:04 000 mcg/ Sodium Chloride IV TITR GAUTAM Protocol 5 MCG/MIN Sodium Chloride 1,000 mls @ 100 mls/hr 08/20/19 16:45 08/20/19 17:16 Normal Saline - IV 100 mls/hr ASDIR GAUTAM Administration Sodium Bicarbonate 150 meq/ 1,150 mls @ 125 mls/hr 08/20/19 17:45 Sodium Chloride IV ASDIR GAUTAM Insulin Aspart 1 vial 08/20/19 16:30 08/20/19 16:37 Novolog Vial Sliding Scale - SQ 10 units TIDAC GAUTAM Administration Protocol Mupirocin 1 applic 08/19/19 22:00 08/20/19 10:14 Bactroban Ointment (For Decolonization) - NS 08/24/19 21:59 1 applic BID GAUTAM Administration Sodium Bicarbonate 50 meq 08/20/19 17:47 Sodium Bicarbonate 8.4% - IVPUSH 08/20/19 17:48 ONCE ONE CXR: worsened parenchymal changes with bl airspace opacities L>R bl pleural effusion. ASSESSMENT/PLAN: 24 y/o/m with PMHx of down syndrome here for altered mental status. 1)DKA - secondary to possible infection vs. new onset diabetes -ABG with pH 7.13, anion gap 26, bicarb 13, glucose at 1642 - ICU , mail order sorter/ID/PUlmonary/nephro/endocrine/cardiac consult appreciated - Ventilator management per ICU team - continue IVF 0.9NS ,s/p Insulin drip , on sliding scale , Vitals every hour, Is and Os. - pressors Norepi, phenelepherine, bicarbs, maintain MAP >65 - IV antibiotics per ID , septic w/u as above ,lactic acid trending down - replete phos and electrolytes - monitor urine output, creatinine - continue ICU monitoring - prognosis guarded 2)Hyperkalemia - 6.5 on initial labs -Will correct with insulin -Monitor with BMPs, repleat as needed 3)Hypernatremia - correct sodium is 151 -IVF 4)CKD vs LIYA - no baseline for patient, no significant known medical history -IVF -Renal U/S -urine electrolytes -Carey Catheter placement -Nephro consulted, Dr. Jurado 5)Leukocytosis - WBC at 17.7 -no source of infection at this time -CXR pending -follow Blood cultures, urine culture, UA -likely secondary to hypervolemia, patient afebrile at this time 6)Prophylaxis -Heparin 7)FEN -1/2 NS 8)Disposition -admitted to ICU transfer to tertiary care for possible ECMO. [facility] was contacted but rejected patient because renal function was too poor to tolerate ecmo, will reach out to [facility] [place] Visit type - Emergency Visit Emergency Visit: Yes ED Registration Date: 08/19/19 Care time: The patient presented to the Emergency Department on the above date and was hospitalized for further evaluation of their emergent condition. - New Patient This patient is new to me today: No - Critical Care Critical Care patient: No - Discharge Referral Referred to [facility] Med [facility] No ATTENDING PHYSICIAN STATEMENT I saw and evaluated the patient. I reviewed the resident's note and discussed the case with the resident. I agree with the resident's findings and plan as documented. SUBJECTIVE: OBJECTIVE: ASSESSMENT AND PLAN:
[2019-08-20] MEDS: SODIUM CHLORIDE 0.9%/KCL 20 MEQ/1,000 ML INFUS.BAG IV SCH (18:42)
[2019-08-20] MEDS: NOREPINEPHRINE BITARTRATE 4,000 MCG in DEXTROSE 5%-WATER - 496 ML IV SCH (18:43)
[2019-08-20 19:08] LABS: ARTERIAL BLD GAS O2 SATURATION 82.2 % (95-98); ARTERIAL BLOOD GAS BASE EXCESS -10.2 meq/l (-2-2); ARTERIAL BLOOD GAS PCO2 64.3 mmHg (35-45)
[2019-08-20 19:53] LABS: ARTERIAL BLOOD GAS pH 7.11 (7.35-7.45)
[2019-08-20 19:57] LABS: ARTERIAL BLOOD GAS PO2 < 49 mmHg (80-100)
[2019-08-20 19:58] LABS: BASO % 0.7 % (0-2.0); EOS % 0.1 % (0-4.5); HEMOGLOBIN 10.9 GM/dL (11.7-16.9); LYMPH % 5.3 % (8-40); MCH 30.8 pg (25.7-33.7); MEAN CELL VOLUME 96.2 fl (80-96); MONO % 5.2 % (3.8-10.2); NEUT % 88.7 % (42.8-82.8); RBC 3.53 M/mm3 (4.00-5.60); WHITE BLOOD COUNT 18.9 K/mm3 (4.0-10.0)
[2019-08-20] MEDS: ACETAMINOPHEN 1000 MG/100 ML VIAL (NON FORMULARY) IVPB PRN (20:00)
[2019-08-20] MEDS: VECURONIUM BROMIDE 50 MG in DEXTROSE 5%-WATER - 250 ML IVPB SCH (20:00)
[2019-08-20 20:05] LABS: PLATELET COUNT 31 K/MM3 (134-434)
[2019-08-20 20:35] LABS: BLOOD UREA NITROGEN 77.3 mg/dL (7-18); CREATININE 6.2 mg/dL (0.55-1.3); POTASSIUM 5.8 mmol/L (3.5-5.1)
[2019-08-20 20:44] LABS: ANISOCYTOSIS 1+; MACROCYTOSIS 1+; PLATELET ESTIMATE DECREASED
[2019-08-20] MEDS ORDERED: DEXTROSE 5%-0.45% SALINE 1,000 ML IV SCH (21:15)
[2019-08-20] MEDS ORDERED: INSULIN (LEVEMIR) 100 UNITS/ML UNITS SQ SCH ×2 (22:00)
[2019-08-20] MEDS ORDERED: MINERAL OIL/PETROLATUM,WHITE 3.5 GM TUBE OU SCH (22:00)
[2019-08-20] MEDS ORDERED: PT OWN MED DRAWER 7, Y5N ONE (22:10)
[2019-08-20] MEDS: CHLORHEXIDINE GLUCONATE 4% CLEANSER FOR DECOLONIZATION TP SCH (22:19)
[2019-08-21 00:07] VITALS: TEMP 101.6
[2019-08-21 00:08] LABS: ARTERIAL BLD GAS O2 SATURATION 79 % (95-98); ARTERIAL BLOOD GAS BASE EXCESS -10.2 meq/l (-2-2); ARTERIAL BLOOD GAS PCO2 57 mmHg (35-45)
[2019-08-21 00:10] LABS: ARTERIAL BLOOD GAS PO2 < 49 mmHg (80-100)
[2019-08-21 00:25] VITALS: BP 101/64; PULSE 127
[2019-08-21] MEDS: ACETAMINOPHEN 1000 MG/100 ML VIAL (NON FORMULARY) IVPB PRN (01:08)
--- NOTE | 2019-08-21 01:14 | PN ---
Progress Note, Physician Chief Complaint: intubated sedated,on pressors/hypotensive/family at bedside - Current Medication List Current Medications: Active Medications Acetaminophen (Ofirmev Injection -) 1,000 mg IVPB Q6H PRN PRN Reason: PAIN OR FEVER Last Admin: 08/20/19 20:00 Dose: 1,000 mg Artificial Tears (Artificial Tears Ointment -) 1 applic OU BID GAUTAM Last Admin: 08/20/19 22:43 Dose: 1 applic Chlorhexidine Gluconate (Hibiclens For Decolonization -) 1 applic TP HS GAUTAM Last Admin: 08/20/19 22:19 Dose: 1 applic Hydrocortisone Sodium Succinate (Solu-Cortef -) 50 mg IVPUSH Q6H GAUTAM Last Admin: 08/20/19 23:39 Dose: 50 mg Midazolam HCl (Midazolam 100mg/100ml-0.9%Nacl) 100 mg in 100 mls @ 1 mls/hr IVPB TITR GAUTAM; Protocol Last Admin: 08/20/19 15:00 Dose: 3 mg/hr, 3 mls/hr Vasopressin 50 units/ Sodium (Chloride) 100 mls @ 4 mls/hr IVPB ASDIR GAUTAM; Protocol Last Admin: 08/20/19 15:00 Dose: 6 units/hr, 12 mls/hr Meropenem 1 gm/ Dextrose 100 mls @ 200 mls/hr IVPB Q12H GAUTAM Last Admin: 08/20/19 16:27 Dose: 200 mls/hr Phenylephrine HCl 20,000 mcg/ (Sodium Chloride) 250 mls @ 75 mls/hr IVPB ASDIR GAUTAM; Protocol Last Titration: 08/20/19 23:42 Dose: 120 mcg/min, 90 mls/hr Vecuronium [place] 50 mg/ (Dextrose) 250 mls @ 33.82 mls/hr IVPB TITR GAUTAM Last Admin: 08/20/19 20:00 Dose: 1 mcg/kg/min, 33.82 mls/hr Clindamycin Phosphate (Cleocin 900 Mg Premix Ivpb -) 900 mg in 50 mls @ 100 mls /hr IVPB Q8H-IV GAUTAM; Protocol Last Admin: 08/20/19 17:17 Dose: 100 mls/hr Famotidine/Sodium Chloride (Pepcid 20 Mg Premixed Ivpb -) 20 mg in 50 mls @ 100 mls/hr IVPB BID GAUTAM Last Admin: 08/20/19 22:07 Dose: 100 mls/hr Norepinephrine Bitartrate 8, (000 mcg/ Sodium Chloride) 500 mls @ 18.75 mls/hr IV TITR GAUTAM; Protocol Last Titration: 08/20/19 20:36 Dose: 35 mcg/min, 131.25 mls/hr Sodium Chloride (Normal Saline -) 1,000 mls @ 100 mls/hr IV ASDIR GAUTAM Last Admin: 08/20/19 17:16 Dose: 100 mls/hr Dextrose/Sodium Chloride (D5-1/2ns -) 1,000 mls @ 42 mls/hr IV ASDIR GAUTAM Last Admin: 08/20/19 22:26 Dose: 42 mls/hr Sodium Bicarbonate 150 meq/ (Sodium Chloride) 1,150 mls @ 150 mls/hr IV ASDIR GAUTAM Last Admin: 08/20/19 20:30 Dose: 150 mls/hr Insulin Aspart (Novolog Vial Sliding Scale -) 1 vial SQ Q6H [facility]; Protocol Last Admin: 08/20/19 22:30 Dose: 10 units Insulin Detemir (Levemir Vial) 15 units SQ BID GAUTAM Last Admin: 08/20/19 22:25 Dose: 15 units Mupirocin (Bactroban Ointment (For Decolonization) -) 1 applic NS BID GAUTAM Stop: 08/24/19 21:59 Last Admin: 08/20/19 22:43 Dose: 1 applic - Objective Vital Signs: Vital Signs Temperature 101.6 F H 08/20/19 22:00 Pulse Rate 127 H 08/21/19 00:00 Respiratory Rate 38 H 08/21/19 00:13 Blood Pressure 101/64 08/21/19 00:00 O2 Sat by Pulse Oximetry (%) 83 L 08/20/19 20:25 Constitutional: Yes: Obese HENT: Yes: Atraumatic, Normocephalic Neck: Yes: Trachea Midline Cardiovascular: Yes: Tachycardia Respiratory: Yes: Mechanically Ventilated Gastrointestinal: Yes: Abdomen, Obese ...Rectal Exam: Yes: Deferred Genitourinary: Yes: WNL Breast(s): Yes: WNL Edema: Yes Edema: LUE: 1+, RUE: 1+ Neurological: Yes: Unresponsive Labs: CBC, BMP 08/20/19 19:30 08/20/19 19:30 INR, PTT INR 1.55 (0.83-1.09) H 08/20/19 07:00 Fibrinogen 380.0 mg/dL (238-498) 08/20/19 07:00 Problem List - Problems (1) Acute respiratory failure Code(s): J96.00 - ACUTE RESPIRATORY FAILURE, UNSP W HYPOXIA OR HYPERCAPNIA (2) Cardiac arrest Code(s): I46.9 - CARDIAC ARREST, CAUSE UNSPECIFIED (3) Diabetes mellitus Code(s): E11.9 - TYPE 2 DIABETES MELLITUS WITHOUT COMPLICATIONS (4) Diastolic CHF Code(s): I50.30 - UNSPECIFIED DIASTOLIC (CONGESTIVE) HEART FAILURE (5) Hyperkalemia Code(s): E87.5 - HYPERKALEMIA (6) Renal dysfunction Code(s): N28.9 - DISORDER OF KIDNEY AND URETER, UNSPECIFIED Assessment/Plan Current Active Problems Acute respiratory failure (Acute) Cardiac arrest (Acute) Diabetes mellitus (Acute) Diastolic CHF (Acute) Hyperkalemia (Acute) Renal dysfunction (Acute) Abnormal Lab Results 08/20/19 08/20/19 08/20/19 00:00 00:00 00:00 WBC RBC 3.98 L Hgb Hct MCV RDW Plt Count 42 L D MPV 12.3 H Absolute Neuts (auto) Neutrophils % Neutrophils % (Manual) Lymphocytes % Lymphocytes % (Manual) Myelocytes % (Man) Metamyelocytes PT with INR INR PTT (Actin FS) ABG pH ABG pCO2 at Pt Temp ABG pO2 at Pt Temp ABG HCO3 ABG O2 Sat (Measured) ABG Base Excess Sodium Potassium Chloride 114 H Carbon Dioxide 20 L Anion Gap BUN 77.6 H Creatinine 6.6 H Random Glucose 483 H* Lactic Acid 4.3 H* Calcium 6.9 L* Phosphorus Magnesium AST Creatine Kinase CK-MB (CK-2) Troponin I Total Protein Albumin Triglycerides Lipase Random Vancomycin 08/20/19 08/20/19 08/20/19 06:50 07:00 07:00 WBC RBC Hgb Hct MCV RDW Plt Count MPV Absolute Neuts (auto) Neutrophils % Neutrophils % (Manual) Lymphocytes % Lymphocytes % (Manual) Myelocytes % (Man) Metamyelocytes PT with INR INR PTT (Actin FS) ABG pH 7.21 L ABG pCO2 at Pt Temp 46.2 H ABG pO2 at Pt Temp < 49 L* ABG HCO3 17.9 L ABG O2 Sat (Measured) 77.3 L ABG Base Excess -9.4 L Sodium 146 H Potassium Chloride 118 H Carbon Dioxide 20 L Anion Gap BUN 76.4 H Creatinine 6.1 H Random Glucose 337 H Lactic Acid Calcium 6.3 L* Phosphorus 2.1 L Magnesium 1.7 L AST 131 H Creatine Kinase 5026 H CK-MB (CK-2) 15.5 H Troponin I Total Protein 5.0 L Albumin 1.8 L Triglycerides 285 H Lipase 2385 H Random Vancomycin 14.4 L 08/20/19 08/20/19 08/20/19 07:00 07:00 07:00 WBC RBC 3.73 L Hgb 11.6 L Hct 35.2 L MCV RDW Plt Count 34 L* MPV 12.0 H Absolute Neuts (auto) 8.3 H Neutrophils % 84.2 H Neutrophils % (Manual) 29.6 L Lymphocytes % Lymphocytes % (Manual) Myelocytes % (Man) 3 H Metamyelocytes 24 H PT with INR INR PTT (Actin FS) 40.2 H ABG pH ABG pCO2 at Pt Temp ABG pO2 at Pt Temp ABG HCO3 ABG O2 Sat (Measured) ABG Base Excess Sodium Potassium Chloride Carbon Dioxide Anion Gap BUN Creatinine Random Glucose Lactic Acid 2.7 H* Calcium Phosphorus Magnesium AST Creatine Kinase CK-MB (CK-2) Troponin I Total Protein Albumin Triglycerides Lipase Random Vancomycin 08/20/19 08/20/19 08/20/19 07:00 08:36 12:33 WBC RBC Hgb Hct MCV RDW Plt Count MPV Absolute Neuts (auto) Neutrophils % Neutrophils % (Manual) Lymphocytes % Lymphocytes % (Manual) Myelocytes % (Man) Metamyelocytes PT with INR 18.40 H INR 1.55 H PTT (Actin FS) ABG pH 7.03 L* ABG pCO2 at Pt Temp 81.0 H* ABG pO2 at Pt Temp < 49 L* ABG HCO3 20.2 L ABG O2 Sat (Measured) 58.9 L ABG Base Excess -11.6 L Sodium 146 H Potassium Chloride 115 H Carbon Dioxide Anion Gap BUN 72.4 H Creatinine 6.3 H Random Glucose 322 H Lactic Acid Calcium 6.2 L* Phosphorus Magnesium AST Creatine Kinase 5078 H CK-MB (CK-2) 15.4 H Troponin I 1.25 H* Total Protein Albumin Triglycerides Lipase Random Vancomycin 08/20/19 08/20/19 08/20/19 12:48 13:45 15:44 WBC RBC Hgb Hct MCV RDW Plt Count MPV Absolute Neuts (auto) Neutrophils % Neutrophils % (Manual) Lymphocytes % Lymphocytes % (Manual) Myelocytes % (Man) Metamyelocytes PT with INR INR PTT (Actin FS) ABG pH 7.05 L* ABG pCO2 at Pt Temp 70.7 H* ABG pO2 at Pt Temp ABG HCO3 18.6 L ABG O2 Sat (Measured) 70.2 L ABG Base Excess -13.4 L Sodium Potassium 5.3 H 5.5 H Chloride 114 H 113 H Carbon Dioxide Anion Gap 7 L 7 L BUN 73.3 H 73.0 H Creatinine 6.1 H 6.1 H Random Glucose 306 H 343 H Lactic Acid Calcium 6.0 L* 5.9 L* Phosphorus Magnesium AST Creatine Kinase CK-MB (CK-2) Troponin I 1.43 H* Total Protein Albumin Triglycerides Lipase Random Vancomycin 08/20/19 08/20/19 08/20/19 16:00 18:55 19:30 WBC RBC Hgb Hct MCV RDW Plt Count MPV Absolute Neuts (auto) Neutrophils % Neutrophils % (Manual) Lymphocytes % Lymphocytes % (Manual) Myelocytes % (Man) Metamyelocytes PT with INR INR PTT (Actin FS) ABG pH 7.11 L* ABG pCO2 at Pt Temp 64.3 H ABG pO2 at Pt Temp < 49 L* ABG HCO3 19.5 L ABG O2 Sat (Measured) 82.2 L ABG Base Excess -10.2 L Sodium Potassium 6.1 H* 5.8 H Chloride 112 H 113 H Carbon Dioxide 20 L Anion Gap 6 L BUN 73.3 H 77.3 H Creatinine 6.2 H 6.2 H Random Glucose 372 H 379 H Lactic Acid Calcium 6.1 L* 6.0 L* Phosphorus Magnesium AST Creatine Kinase CK-MB (CK-2) Troponin I 1.46 H* Total Protein Albumin Triglycerides Lipase Random Vancomycin 08/20/19 08/21/19 19:30 00:05 WBC 18.9 H RBC 3.53 L Hgb 10.9 L Hct 34.0 L MCV 96.2 H RDW 16.0 H Plt Count 31 L* MPV 12.0 H Absolute Neuts (auto) 16.7 H Neutrophils % 88.7 H Neutrophils % (Manual) Lymphocytes % 5.3 L D Lymphocytes % (Manual) 5.9 L D Myelocytes % (Man) 3 H Metamyelocytes PT with INR INR PTT (Actin FS) ABG pH 7.10 L* ABG pCO2 at Pt Temp 57 H ABG pO2 at Pt Temp < 49 L* ABG HCO3 18.6 L ABG O2 Sat (Measured) 79 L ABG Base Excess -10.2 L Sodium Potassium Chloride Carbon Dioxide Anion Gap BUN Creatinine Random Glucose Lactic Acid Calcium Phosphorus Magnesium AST Creatine Kinase CK-MB (CK-2) Troponin I Total Protein Albumin Triglycerides Lipase Random Vancomycin Laboratory Results - last 24 hr 08/20/19 08/20/19 08/20/19 00:00 00:00 00:00 WBC 4.2 RBC 3.98 L Hgb 12.4 Hct 37.9 D MCV 95.3 D MCH 31.1 MCHC 32.7 RDW 15.6 D Plt Count 42 L D MPV 12.3 H Absolute Neuts (auto) Neutrophils % Neutrophils % (Manual) Band Neutrophils % Lymphocytes % Lymphocytes % (Manual) Monocytes % Monocytes % (Manual) Eosinophils % Eosinophils % (Manual) Basophils % Basophils % (Manual) Myelocytes % (Man) Promyelocytes % (Man) Blast Cells % (Manual) Nucleated RBC % Metamyelocytes Hypochromia Platelet Estimate Polychromasia Poikilocytosis Anisocytosis Microcytosis Macrocytosis Tear Drop Cells Ovalocytes PT with INR INR PTT (Actin FS) Fibrinogen Anticoagulation Therapy Puncture Site ABG pH ABG pCO2 at Pt Temp ABG pO2 at Pt Temp ABG HCO3 ABG O2 Sat (Measured) ABG O2 Content ABG Base Excess Moisés Test O2 Delivery Device Oxygen Flow Rate Vent Mode Vent Rate Mechanical Rate PEEP Pressure Support Vent Sodium 145 Potassium 3.7 Chloride 114 H Carbon Dioxide 20 L Anion Gap 11 BUN 77.6 H Creatinine 6.6 H Est GFR (CKD-EPI)AfAm 12.59 Est GFR (CKD-EPI)NonAf 10.86 POC Glucometer Random Glucose 483 H* Lactic Acid 4.3 H* Calcium 6.9 L* Phosphorus Magnesium Total Bilirubin AST ALT Alkaline Phosphatase Creatine Kinase Creatine Kinase Index CK-MB (CK-2) Troponin I Total Protein Albumin Triglycerides Lipase Random Vancomycin 08/20/19 08/20/19 08/20/19 02:04 03:13 04:23 WBC RBC Hgb Hct MCV MCH MCHC RDW Plt Count MPV Absolute Neuts (auto) Neutrophils % Neutrophils % (Manual) Band Neutrophils % Lymphocytes % Lymphocytes % (Manual) Monocytes % Monocytes % (Manual) Eosinophils % Eosinophils % (Manual) Basophils % Basophils % (Manual) Myelocytes % (Man) Promyelocytes % (Man) Blast Cells % (Manual) Nucleated RBC % Metamyelocytes Hypochromia Platelet Estimate Polychromasia Poikilocytosis Anisocytosis Microcytosis Macrocytosis Tear Drop Cells Ovalocytes PT with INR INR PTT (Actin FS) Fibrinogen Anticoagulation Therapy Puncture Site ABG pH ABG pCO2 at Pt Temp ABG pO2 at Pt Temp ABG HCO3 ABG O2 Sat (Measured) ABG O2 Content ABG Base Excess Moisés Test O2 Delivery Device Oxygen Flow Rate Vent Mode Vent Rate Mechanical Rate PEEP Pressure Support Vent Sodium Potassium Chloride Carbon Dioxide Anion Gap BUN Creatinine Est GFR (CKD-EPI)AfAm Est GFR (CKD-EPI)NonAf POC Glucometer 367 346 392 Random Glucose Lactic Acid Calcium Phosphorus Magnesium Total Bilirubin AST ALT Alkaline Phosphatase Creatine Kinase Creatine Kinase Index CK-MB (CK-2) Troponin I Total Protein Albumin Triglycerides Lipase Random Vancomycin 08/20/19 08/20/19 08/20/19 05:09 06:14 06:50 WBC RBC Hgb Hct MCV MCH MCHC RDW Plt Count MPV Absolute Neuts (auto) Neutrophils % Neutrophils % (Manual) Band Neutrophils % Lymphocytes % Lymphocytes % (Manual) Monocytes % Monocytes % (Manual) Eosinophils % Eosinophils % (Manual) Basophils % Basophils % (Manual) Myelocytes % (Man) Promyelocytes % (Man) Blast Cells % (Manual) Nucleated RBC % Metamyelocytes Hypochromia Platelet Estimate Polychromasia Poikilocytosis Anisocytosis Microcytosis Macrocytosis Tear Drop Cells Ovalocytes PT with INR INR PTT (Actin FS) Fibrinogen Anticoagulation Therapy Puncture Site Right femoral ABG pH 7.21 L ABG pCO2 at Pt Temp 46.2 H ABG pO2 at Pt Temp < 49 L* ABG HCO3 17.9 L ABG O2 Sat (Measured) 77.3 L ABG O2 Content No Result Required. ABG Base Excess -9.4 L Moisés Test No Result Required. O2 Delivery Device Oxygen Flow Rate 100% Vent Mode A/c vc Vent Rate 24 Mechanical Rate PEEP 14.0 Pressure Support Vent 450 Sodium Potassium Chloride Carbon Dioxide Anion Gap BUN Creatinine Est GFR (CKD-EPI)AfAm Est GFR (CKD-EPI)NonAf POC Glucometer 285 291 Random Glucose Lactic Acid Calcium Phosphorus Magnesium Total Bilirubin AST ALT Alkaline Phosphatase Creatine Kinase Creatine Kinase Index CK-MB (CK-2) Troponin I Total Protein Albumin Triglycerides Lipase Random Vancomycin 08/20/19 08/20/19 08/20/19 07:00 07:00 07:00 WBC 9.9 RBC 3.73 L Hgb 11.6 L Hct 35.2 L MCV 94.3 MCH 31.1 MCHC 32.9 RDW 15.5 Plt Count 34 L* MPV 12.0 H Absolute Neuts (auto) 8.3 H Neutrophils % 84.2 H Neutrophils % (Manual) 29.6 L Band Neutrophils % 19.4 Lymphocytes % 8.4 D Lymphocytes % (Manual) 9.2 Monocytes % 6.5 Monocytes % (Manual) 9 Eosinophils % 0.4 D Eosinophils % (Manual) 1.0 Basophils % 0.5 Basophils % (Manual) 1.0 Myelocytes % (Man) 3 H Promyelocytes % (Man) 0 Blast Cells % (Manual) 0 Nucleated RBC % 0 Metamyelocytes 24 H Hypochromia 0 Platelet Estimate Decreased Polychromasia 0 Poikilocytosis 0 Anisocytosis 1+ Microcytosis 0 Macrocytosis 1+ Tear Drop Cells 1+ Ovalocytes 1+ PT with INR INR PTT (Actin FS) Fibrinogen Anticoagulation Therapy Puncture Site ABG pH ABG pCO2 at Pt Temp ABG pO2 at Pt Temp ABG HCO3 ABG O2 Sat (Measured) ABG O2 Content ABG Base Excess Moisés Test O2 Delivery Device Oxygen Flow Rate Vent Mode Vent Rate Mechanical Rate PEEP Pressure Support Vent Sodium 146 H Potassium 4.6 Chloride 118 H Carbon Dioxide 20 L Anion Gap 8 BUN 76.4 H Creatinine 6.1 H Est GFR (CKD-EPI)AfAm 13.85 Est GFR (CKD-EPI)NonAf 11.95 POC Glucometer Random Glucose 337 H Lactic Acid Calcium 6.3 L* Phosphorus 2.1 L Magnesium 1.7 L Total Bilirubin 0.3 AST 131 H ALT 56 Alkaline Phosphatase 69 Creatine Kinase 5026 H Creatine Kinase Index 0.3 CK-MB (CK-2) 15.5 H Troponin I Total Protein 5.0 L Albumin 1.8 L Triglycerides 285 H Lipase 2385 H Random Vancomycin 14.4 L 08/20/19 08/20/19 08/20/19 07:00 07:00 07:00 WBC RBC Hgb Hct MCV MCH MCHC RDW Plt Count MPV Absolute Neuts (auto) Neutrophils % Neutrophils % (Manual) Band Neutrophils % Lymphocytes % Lymphocytes % (Manual) Monocytes % Monocytes % (Manual) Eosinophils % Eosinophils % (Manual) Basophils % Basophils % (Manual) Myelocytes % (Man) Promyelocytes % (Man) Blast Cells % (Manual) Nucleated RBC % Metamyelocytes Hypochromia Platelet Estimate Polychromasia Poikilocytosis Anisocytosis Microcytosis Macrocytosis Tear Drop Cells Ovalocytes PT with INR 18.40 H INR 1.55 H PTT (Actin FS) 40.2 H Fibrinogen Anticoagulation Therapy Puncture Site ABG pH ABG pCO2 at Pt Temp ABG pO2 at Pt Temp ABG HCO3 ABG O2 Sat (Measured) ABG O2 Content ABG Base Excess Moisés Test O2 Delivery Device Oxygen Flow Rate Vent Mode Vent Rate Mechanical Rate PEEP Pressure Support Vent Sodium Potassium Chloride Carbon Dioxide Anion Gap BUN Creatinine Est GFR (CKD-EPI)AfAm Est GFR (CKD-EPI)NonAf POC Glucometer Random Glucose Lactic Acid 2.7 H* Calcium Phosphorus Magnesium Total Bilirubin AST ALT Alkaline Phosphatase Creatine Kinase Creatine Kinase Index CK-MB (CK-2) Troponin I Total Protein Albumin Triglycerides Lipase Random Vancomycin 08/20/19 08/20/19 08/20/19 07:00 08:36 10:48 WBC RBC Hgb Hct MCV MCH MCHC RDW Plt Count MPV Absolute Neuts (auto) Neutrophils % Neutrophils % (Manual) Band Neutrophils % Lymphocytes % Lymphocytes % (Manual) Monocytes % Monocytes % (Manual) Eosinophils % Eosinophils % (Manual) Basophils % Basophils % (Manual) Myelocytes % (Man) Promyelocytes % (Man) Blast Cells % (Manual) Nucleated RBC % Metamyelocytes Hypochromia Platelet Estimate Polychromasia Poikilocytosis Anisocytosis Microcytosis Macrocytosis Tear Drop Cells Ovalocytes PT with INR INR PTT (Actin FS) Fibrinogen 380.0 Anticoagulation Therapy Puncture Site ABG pH ABG pCO2 at Pt Temp ABG pO2 at Pt Temp ABG HCO3 ABG O2 Sat (Measured) ABG O2 Content ABG Base Excess Moisés Test O2 Delivery Device Oxygen Flow Rate Vent Mode Vent Rate Mechanical Rate PEEP Pressure Support Vent Sodium 146 H Potassium 4.7 Chloride 115 H Carbon Dioxide 21 Anion Gap 9 BUN 72.4 H Creatinine 6.3 H Est GFR (CKD-EPI)AfAm 13.32 Est GFR (CKD-EPI)NonAf 11.49 POC Glucometer 309 Random Glucose 322 H Lactic Acid Calcium 6.2 L* Phosphorus Magnesium Total Bilirubin AST ALT Alkaline Phosphatase Creatine Kinase 5078 H Creatine Kinase Index 0.3 CK-MB (CK-2) 15.4 H Troponin I 1.25 H* Total Protein Albumin Triglycerides Lipase Random Vancomycin 08/20/19 08/20/19 08/20/19 12:33 12:48 13:35 WBC RBC Hgb Hct MCV MCH MCHC RDW Plt Count MPV Absolute Neuts (auto) Neutrophils % Neutrophils % (Manual) Band Neutrophils % Lymphocytes % Lymphocytes % (Manual) Monocytes % Monocytes % (Manual) Eosinophils % Eosinophils % (Manual) Basophils % Basophils % (Manual) Myelocytes % (Man) Promyelocytes % (Man) Blast Cells % (Manual) Nucleated RBC % Metamyelocytes Hypochromia Platelet Estimate Polychromasia Poikilocytosis Anisocytosis Microcytosis Macrocytosis Tear Drop Cells Ovalocytes PT with INR INR PTT (Actin FS) Fibrinogen Anticoagulation Therapy No Result Required. Puncture Site Arterial line ABG pH 7.03 L* ABG pCO2 at Pt Temp 81.0 H* ABG pO2 at Pt Temp < 49 L* ABG HCO3 20.2 L ABG O2 Sat (Measured) 58.9 L ABG O2 Content No Result Required. ABG Base Excess -11.6 L Moisés Test Not applicable O2 Delivery Device Mech vent Oxygen Flow Rate 100% Vent Mode A/c Vent Rate 30 Mechanical Rate Yes PEEP 20.0 Pressure Support Vent 300 Sodium 144 Potassium 5.3 H Chloride 114 H Carbon Dioxide 23 Anion Gap 7 L BUN 73.3 H Creatinine 6.1 H Est GFR (CKD-EPI)AfAm 13.85 Est GFR (CKD-EPI)NonAf 11.95 POC Glucometer 294 Random Glucose 306 H Lactic Acid Calcium 6.0 L* Phosphorus Magnesium Total Bilirubin AST ALT Alkaline Phosphatase Creatine Kinase Creatine Kinase Index CK-MB (CK-2) Troponin I 1.43 H* Total Protein Albumin Triglycerides Lipase Random Vancomycin 08/20/19 08/20/19 08/20/19 13:45 15:44 16:00 WBC RBC Hgb Hct MCV MCH MCHC RDW Plt Count MPV Absolute Neuts (auto) Neutrophils % Neutrophils % (Manual) Band Neutrophils % Lymphocytes % Lymphocytes % (Manual) Monocytes % Monocytes % (Manual) Eosinophils % Eosinophils % (Manual) Basophils % Basophils % (Manual) Myelocytes % (Man) Promyelocytes % (Man) Blast Cells % (Manual) Nucleated RBC % Metamyelocytes Hypochromia Platelet Estimate Polychromasia Poikilocytosis Anisocytosis Microcytosis Macrocytosis Tear Drop Cells Ovalocytes PT with INR INR PTT (Actin FS) Fibrinogen Anticoagulation Therapy No Result Required. Puncture Site Left radial ABG pH 7.05 L* ABG pCO2 at Pt Temp 70.7 H* ABG pO2 at Pt Temp No Result Required. ABG HCO3 18.6 L ABG O2 Sat (Measured) 70.2 L ABG O2 Content No Result Required. ABG Base Excess -13.4 L Moisés Test Not applicable O2 Delivery Device Mechanical vent Oxygen Flow Rate 100% Vent Mode No Result Required. Vent Rate 36 Mechanical Rate A/c PEEP 20.0 Pressure Support Vent 350 Sodium 143 141 Potassium 5.5 H 6.1 H* Chloride 113 H 112 H Carbon Dioxide 23 23 Anion Gap 7 L 6 L BUN 73.0 H 73.3 H Creatinine 6.1 H 6.2 H Est GFR (CKD-EPI)AfAm 13.85 13.58 Est GFR (CKD-EPI)NonAf 11.95 11.72 POC Glucometer Random Glucose 343 H 372 H Lactic Acid Calcium 5.9 L* 6.1 L* Phosphorus Magnesium Total Bilirubin AST ALT Alkaline Phosphatase Creatine Kinase Creatine Kinase Index CK-MB (CK-2) Troponin I Total Protein Albumin Triglycerides Lipase Random Vancomycin 08/20/19 08/20/19 08/20/19 16:00 16:32 18:55 WBC RBC Hgb Hct MCV MCH MCHC RDW Plt Count MPV Absolute Neuts (auto) Neutrophils % Neutrophils % (Manual) Band Neutrophils % Lymphocytes % Lymphocytes % (Manual) Monocytes % Monocytes % (Manual) Eosinophils % Eosinophils % (Manual) Basophils % Basophils % (Manual) Myelocytes % (Man) Promyelocytes % (Man) Blast Cells % (Manual) Nucleated RBC % Metamyelocytes Hypochromia Platelet Estimate Polychromasia Poikilocytosis Anisocytosis Microcytosis Macrocytosis Tear Drop Cells Ovalocytes PT with INR INR PTT (Actin FS) Fibrinogen Anticoagulation Therapy No Result Required. Puncture Site Arterial line ABG pH 7.11 L* ABG pCO2 at Pt Temp 64.3 H ABG pO2 at Pt Temp < 49 L* ABG HCO3 19.5 L ABG O2 Sat (Measured) 82.2 L ABG O2 Content No Result Required. ABG Base Excess -10.2 L Moisés Test No Result Required. O2 Delivery Device No Result Required. Oxygen Flow Rate Yes Vent Mode No Result Required. Vent Rate No Result Required. Mechanical Rate No Result Required. PEEP Pressure Support Vent No Result Required. Sodium Potassium Chloride Carbon Dioxide Anion Gap BUN Creatinine Est GFR (CKD-EPI)AfAm Est GFR (CKD-EPI)NonAf POC Glucometer 361 Random Glucose Lactic Acid 1.8 Calcium Phosphorus Magnesium Total Bilirubin AST ALT Alkaline Phosphatase Creatine Kinase Creatine Kinase Index CK-MB (CK-2) Troponin I Total Protein Albumin Triglycerides Lipase Random Vancomycin 08/20/19 08/20/19 08/20/19 19:30 19:30 22:28 WBC 18.9 H RBC 3.53 L Hgb 10.9 L Hct 34.0 L MCV 96.2 H MCH 30.8 MCHC 32.0 RDW 16.0 H Plt Count 31 L* MPV 12.0 H Absolute Neuts (auto) 16.7 H Neutrophils % 88.7 H Neutrophils % (Manual) 62.4 D Band Neutrophils % 24.7 Lymphocytes % 5.3 L D Lymphocytes % (Manual) 5.9 L D Monocytes % 5.2 Monocytes % (Manual) 4 Eosinophils % 0.1 Eosinophils % (Manual) 0.0 D Basophils % 0.7 Basophils % (Manual) 0.0 Myelocytes % (Man) 3 H Promyelocytes % (Man) 0 Blast Cells % (Manual) 0 Nucleated RBC % 0 Metamyelocytes 0 D Hypochromia 0 Platelet Estimate Decreased Polychromasia Poikilocytosis 3+ Anisocytosis 1+ Microcytosis Macrocytosis 1+ Tear Drop Cells Ovalocytes PT with INR INR PTT (Actin FS) Fibrinogen Anticoagulation Therapy Puncture Site ABG pH ABG pCO2 at Pt Temp ABG pO2 at Pt Temp ABG HCO3 ABG O2 Sat (Measured) ABG O2 Content ABG Base Excess Moisés Test O2 Delivery Device Oxygen Flow Rate Vent Mode Vent Rate Mechanical Rate PEEP Pressure Support Vent Sodium 142 Potassium 5.8 H Chloride 113 H Carbon Dioxide 20 L Anion Gap 9 BUN 77.3 H Creatinine 6.2 H Est GFR (CKD-EPI)AfAm 13.58 Est GFR (CKD-EPI)NonAf 11.72 POC Glucometer 351 Random Glucose 379 H Lactic Acid Calcium 6.0 L* Phosphorus Magnesium Total Bilirubin AST ALT Alkaline Phosphatase Creatine Kinase Creatine Kinase Index CK-MB (CK-2) Troponin I 1.46 H* Total Protein Albumin Triglycerides Lipase Random Vancomycin 08/21/19 08/21/19 00:05 00:23 WBC RBC Hgb Hct MCV MCH MCHC RDW Plt Count MPV Absolute Neuts (auto) Neutrophils % Neutrophils % (Manual) Band Neutrophils % Lymphocytes % Lymphocytes % (Manual) Monocytes % Monocytes % (Manual) Eosinophils % Eosinophils % (Manual) Basophils % Basophils % (Manual) Myelocytes % (Man) Promyelocytes % (Man) Blast Cells % (Manual) Nucleated RBC % Metamyelocytes Hypochromia Platelet Estimate Polychromasia Poikilocytosis Anisocytosis Microcytosis Macrocytosis Tear Drop Cells Ovalocytes PT with INR INR PTT (Actin FS) Fibrinogen Anticoagulation Therapy No Result Required. Puncture Site Arterial line ABG pH 7.10 L* ABG pCO2 at Pt Temp 57 H ABG pO2 at Pt Temp < 49 L* ABG HCO3 18.6 L ABG O2 Sat (Measured) 79 L ABG O2 Content No Result Required. ABG Base Excess -10.2 L Moisés Test No Result Required. O2 Delivery Device No Result Required. Oxygen Flow Rate No Result Required. Vent Mode No Result Required. Vent Rate No Result Required. Mechanical Rate No Result Required. PEEP Pressure Support Vent No Result Required. Sodium Potassium Chloride Carbon Dioxide Anion Gap BUN Creatinine Est GFR (CKD-EPI)AfAm Est GFR (CKD-EPI)NonAf POC Glucometer 316 Random Glucose Lactic Acid Calcium Phosphorus Magnesium Total Bilirubin AST ALT Alkaline Phosphatase Creatine Kinase Creatine Kinase Index CK-MB (CK-2) Troponin I Total Protein Albumin Triglycerides Lipase Random Vancomycin plan: continue bgm q4hr levemir bid dose titration may need ngt supportive care,prognosis guarded family aware.
[2019-08-21] MEDS ORDERED: DEXTROSE 5%-0.45% SALINE 1,000 ML IV SCH (01:15)
[2019-08-21] MEDS ORDERED: INSULIN REGULAR 100 UNITS in SODIUM CHLORIDE 99 ML IVPB SCH (01:15)
[2019-08-21] MEDS ORDERED: CALCIUM CHLORIDE 10% 1 GM/10 ML *VIAL IVPUSH ONE (01:38)
[2019-08-21] MEDS ORDERED: CALCIUM GLUCONATE 10% - 1,000 MG/10 ML VIAL IVPB ONE ×2 (01:39→02:46)
[2019-08-21] MEDS ORDERED: SODIUM CHLORIDE 1,000 ML with SODIUM BICARBONATE 8.4% - 150 MEQ IV SCH (01:45)
[2019-08-21] MEDS ORDERED: CALCIUM CHLORIDE 1 GM/10 ML *DISP.SYRIN ONE (01:53)
[2019-08-21 02:10] LABS: BASO % 0.4 % (0-2.0); HEMATOCRIT 32.1 % (35.4-49); HEMOGLOBIN 10.4 GM/dL (11.7-16.9); LYMPH % 3.6 % (8-40); MCHC 32.5 g/dl (32.0-35.9); MEAN CELL VOLUME 95.3 fl (80-96); MEAN PLT VOLUME 12.7 fl (7.5-11.1); MONO % 5.7 % (3.8-10.2); NEUT % 90.3 % (42.8-82.8); RBC 3.37 M/mm3 (4.00-5.60); RDW 16.1 % (11.9-15.9); WHITE BLOOD COUNT 19.3 K/mm3 (4.0-10.0)
[2019-08-21 02:23] LABS: PLATELET COUNT 30 K/MM3 (134-434)
[2019-08-21] MEDS ORDERED: SODIUM CHLORIDE 500 ML IV STA ×2 (02:24→03:04)
[2019-08-21] MEDS ORDERED: FLUCONAZOLE 200 MG/NS 100 ML IVPB ONE (02:25)
[2019-08-21] MEDS: CLINDAMYCIN 900 MG PREMIX IVPB 900 MG/50 ML BAG IVPB SCH (02:25)
[2019-08-21] MEDS: MEROPENEM 1 GM in DEXTROSE 5%-WATER 100 ML IVPB SCH (02:26)
[2019-08-21] MEDS ORDERED: CALCIUM GLUCONATE 10% - 1,000 MG/10 ML VIAL ONE (02:33)
--- NOTE | 2019-08-21 02:35 | RAPID ---
Physical Examination Vital Signs: Vital Signs Temperature 101.6 F H 08/20/19 22:00 Pulse Rate 127 H 08/21/19 00:00 Respiratory Rate 38 H 08/21/19 00:13 Blood Pressure 101/64 08/21/19 00:00 O2 Sat by Pulse Oximetry (%) 83 L 08/20/19 20:25 pt was coded at time with PEA @ 155 AM code 99 was called ACLS protocol was initiated total of 3 epi was given and 1 bicarbonate Ipush pt was shocked @ 200 J we were able to regain the pulse in 10 min EKG repeat with Sinus tachy @ 134 O2 sat in 45% hypothermiaprotocol was started NS @ 500 CC bolus was started. Calcium gluconat and calcium chloride was given as well. family was informed about the multiorgan failure and poor prognosis but the family seems angry and in denial Labs: CBC, BMP 08/21/19 01:30
[2019-08-21 02:42] LABS: BLOOD UREA NITROGEN 76.7 mg/dL (7-18); CREATININE 6.4 mg/dL (0.55-1.3); POTASSIUM 5.3 mmol/L (3.5-5.1)
[2019-08-21] MEDS ORDERED: MAGNESIUM SULF 50% (8.12 MEQ/2 ML-1 GM VIAL) IVPB ONE (02:48)
[2019-08-21] MEDS ORDERED: MEROPENEM 1 GM VIAL (RESTRICTED TO ID) IVPB ONE (02:55)
[2019-08-21] MEDS ORDERED: DEXTROSE 5%-WATER 100 ML IVPB ONE (02:55)
[2019-08-21] MEDS ORDERED: MAGNESIUM SULFATE IN WATER 2 GM/50 ML IVPB IVPB ONE (02:56)
[2019-08-21] MEDS ORDERED: EPINEPHrine 1:10,000 (P-F SYR) 1 MG/10 ML DISP.SYRIN ONE (03:59)
--- NOTE | 2019-08-21 04:26 | RAPID ---
Physical Examination Vital Signs: Vital Signs Temperature 101.6 F H 08/20/19 22:00 Pulse Rate 127 H 08/21/19 00:00 Respiratory Rate 38 H 08/21/19 00:13 Blood Pressure 101/64 08/21/19 00:00 O2 Sat by Pulse Oximetry (%) 83 L 08/20/19 20:25 pt was coded again @ 3.36 AM CPR protocol was initiated 3 epinephrine IV push was given 2 Bicarb IV was pushed pt regain pulse @ 3.43 pt is in sinus tachycardia @ 140 family was informed about the poor prognosis. and they seem start to understand. Labs: CBC, BMP 08/21/19 01:30 08/21/19 01:30
--- NOTE | 2019-08-21 04:38 | RAPID ---
Physical Examination Vital Signs: Vital Signs Temperature 101.6 F H 08/20/19 22:00 Pulse Rate 127 H 08/21/19 00:00 Respiratory Rate 38 H 08/21/19 00:13 Blood Pressure 101/64 08/21/19 00:00 O2 Sat by Pulse Oximetry (%) 83 L 08/20/19 20:25 code 99 called at 3.52 ACLS protocol was initiated 6 epinephrine was giving 2 bicarb was given Epinephrin drip was started pt was not able to regain the pulse the mother at bed side requested to stop the CPR and let the pt go peacefully pt was pulseless and no rhythm was noted on the monitor , no cornea or cough reflexes. pt was pronounced @ 4.05 AM. Labs: CBC, BMP 08/21/19 01:30 08/21/19 01:30
[2019-08-21] MEDS ORDERED: SODIUM CHLORIDE IVPB ONE (05:30)
[2019-08-21] MEDS ORDERED: CALCIUM GLUCONATE IVPB ONE (05:30)
[2019-08-21 05:44] LABS: CALCIUM 5.8 mg/dL (8.5-10.1)
--- NOTE | 2019-08-21 06:09 | RAPID ---
Physical Examination Vital Signs: Vital Signs Temperature 101.6 F H 08/20/19 22:00 Pulse Rate 127 H 08/21/19 00:00 Respiratory Rate 38 H 08/21/19 00:13 Blood Pressure 101/64 08/21/19 00:00 O2 Sat by Pulse Oximetry (%) 83 L 08/20/19 20:25 Code 99 called at 0155 Rapid response team arrived immediately Patient with asystole on arrival. ROSC obtained within 10 minutes. Patient with sinus tachycardia at 134. Please see code sheet for further information. Labs: CBC, BMP 08/21/19 01:30 08/21/19 01:30
--- NOTE | 2019-08-21 06:13 | RAPID ---
Physical Examination Vital Signs: Vital Signs Temperature 101.6 F H 08/20/19 22:00 Pulse Rate 127 H 08/21/19 00:00 Respiratory Rate 38 H 08/21/19 00:13 Blood Pressure 101/64 08/21/19 00:00 O2 Sat by Pulse Oximetry (%) 83 L 08/20/19 20:25 Code 99 called at 0336 Rapid response team arrived immediately Patient with asystole on arrival. ROSC obtained at 0343. Patient with sinus tachycardia at 140. Please see code sheet for further information. Labs: CBC, BMP 08/21/19 01:30 08/21/19 01:30
--- NOTE | 2019-08-21 06:15 | RAPID ---
Physical Examination Vital Signs: Vital Signs Temperature 101.6 F H 08/20/19 22:00 Pulse Rate 127 H 08/21/19 00:00 Respiratory Rate 38 H 08/21/19 00:13 Blood Pressure 101/64 08/21/19 00:00 O2 Sat by Pulse Oximetry (%) 83 L 08/20/19 20:25 Code 99 called at 0352 Rapid response team still present in ICU from previous code. Patient went into asystole again. Unable to attain ROSC. Time of pronounced at 0405. Please see code sheet for further information. Labs: CBC, BMP 08/21/19 01:30 08/21/19 01:30
--- NOTE | 2019-08-21 07:23 | DS ---
Physical Exam: SUBJECTIVE: Patient seen and examined. Patient coded and at 4:05am. OBJECTIVE: Vital Signs Period Temp Pulse Resp BP Sys/Stovall Pulse Ox Last 24 Hr 99.3 F-101.6 F 116-131 26-38 89-126/33-77 83 PHYSICAL EXAM No breath sounds, no chest rise, no pulse or heart beat, no corneal blink reflex. LABS Laboratory Results - last 24 hr 08/20/19 08/20/19 08/20/19 06:50 07:00 07:00 WBC RBC Hgb Hct MCV MCH MCHC RDW Plt Count MPV Absolute Neuts (auto) Neutrophils % Neutrophils % (Manual) Band Neutrophils % Lymphocytes % Lymphocytes % (Manual) Monocytes % Monocytes % (Manual) Eosinophils % Eosinophils % (Manual) Basophils % Basophils % (Manual) Myelocytes % (Man) Promyelocytes % (Man) Blast Cells % (Manual) Nucleated RBC % Metamyelocytes Hypochromia Platelet Estimate Polychromasia Poikilocytosis Anisocytosis Microcytosis Macrocytosis Tear Drop Cells Ovalocytes PT with INR INR PTT (Actin FS) Fibrinogen Anticoagulation Therapy Puncture Site Right femoral ABG pH 7.21 L ABG pCO2 at Pt Temp 46.2 H ABG pO2 at Pt Temp < 49 L* ABG HCO3 17.9 L ABG O2 Sat (Measured) 77.3 L ABG O2 Content No Result Required. ABG Base Excess -9.4 L Moisés Test No Result Required. O2 Delivery Device Oxygen Flow Rate 100% Vent Mode A/c vc Vent Rate 24 Mechanical Rate PEEP 14.0 Pressure Support Vent 450 Sodium 146 H Potassium 4.6 Chloride 118 H Carbon Dioxide 20 L Anion Gap 8 BUN 76.4 H Creatinine 6.1 H Est GFR (CKD-EPI)AfAm 13.85 Est GFR (CKD-EPI)NonAf 11.95 POC Glucometer Random Glucose 337 H Lactic Acid Calcium 6.3 L* Phosphorus 2.1 L Magnesium 1.7 L Total Bilirubin 0.3 AST 131 H ALT 56 Alkaline Phosphatase 69 Creatine Kinase 5026 H Creatine Kinase Index 0.3 CK-MB (CK-2) 15.5 H Troponin I Total Protein 5.0 L Albumin 1.8 L Triglycerides 285 H Lipase 2385 H Random Vancomycin 14.4 L 08/20/19 08/20/19 08/20/19 07:00 07:00 07:00 WBC 9.9 RBC 3.73 L Hgb 11.6 L Hct 35.2 L MCV 94.3 MCH 31.1 MCHC 32.9 RDW 15.5 Plt Count 34 L* MPV 12.0 H Absolute Neuts (auto) 8.3 H Neutrophils % 84.2 H Neutrophils % (Manual) 29.6 L Band Neutrophils % 19.4 Lymphocytes % 8.4 D Lymphocytes % (Manual) 9.2 Monocytes % 6.5 Monocytes % (Manual) 9 Eosinophils % 0.4 D Eosinophils % (Manual) 1.0 Basophils % 0.5 Basophils % (Manual) 1.0 Myelocytes % (Man) 3 H Promyelocytes % (Man) 0 Blast Cells % (Manual) 0 Nucleated RBC % 0 Metamyelocytes 24 H Hypochromia 0 Platelet Estimate Decreased Polychromasia 0 Poikilocytosis 0 Anisocytosis 1+ Microcytosis 0 Macrocytosis 1+ Tear Drop Cells 1+ Ovalocytes 1+ PT with INR INR PTT (Actin FS) 40.2 H Fibrinogen Anticoagulation Therapy Puncture Site ABG pH ABG pCO2 at Pt Temp ABG pO2 at Pt Temp ABG HCO3 ABG O2 Sat (Measured) ABG O2 Content ABG Base Excess Moisés Test O2 Delivery Device Oxygen Flow Rate Vent Mode Vent Rate Mechanical Rate PEEP Pressure Support Vent Sodium Potassium Chloride Carbon Dioxide Anion Gap BUN Creatinine Est GFR (CKD-EPI)AfAm Est GFR (CKD-EPI)NonAf POC Glucometer Random Glucose Lactic Acid 2.7 H* Calcium Phosphorus Magnesium Total Bilirubin AST ALT Alkaline Phosphatase Creatine Kinase Creatine Kinase Index CK-MB (CK-2) Troponin I Total Protein Albumin Triglycerides Lipase Random Vancomycin 08/20/19 08/20/19 08/20/19 07:00 07:00 08:36 WBC RBC Hgb Hct MCV MCH MCHC RDW Plt Count MPV Absolute Neuts (auto) Neutrophils % Neutrophils % (Manual) Band Neutrophils % Lymphocytes % Lymphocytes % (Manual) Monocytes % Monocytes % (Manual) Eosinophils % Eosinophils % (Manual) Basophils % Basophils % (Manual) Myelocytes % (Man) Promyelocytes % (Man) Blast Cells % (Manual) Nucleated RBC % Metamyelocytes Hypochromia Platelet Estimate Polychromasia Poikilocytosis Anisocytosis Microcytosis Macrocytosis Tear Drop Cells Ovalocytes PT with INR 18.40 H INR 1.55 H PTT (Actin FS) Fibrinogen 380.0 Anticoagulation Therapy Puncture Site ABG pH ABG pCO2 at Pt Temp ABG pO2 at Pt Temp ABG HCO3 ABG O2 Sat (Measured) ABG O2 Content ABG Base Excess Moisés Test O2 Delivery Device Oxygen Flow Rate Vent Mode Vent Rate Mechanical Rate PEEP Pressure Support Vent Sodium 146 H Potassium 4.7 Chloride 115 H Carbon Dioxide 21 Anion Gap 9 BUN 72.4 H Creatinine 6.3 H Est GFR (CKD-EPI)AfAm 13.32 Est GFR (CKD-EPI)NonAf 11.49 POC Glucometer Random Glucose 322 H Lactic Acid Calcium 6.2 L* Phosphorus Magnesium Total Bilirubin AST ALT Alkaline Phosphatase Creatine Kinase 5078 H Creatine Kinase Index 0.3 CK-MB (CK-2) 15.4 H Troponin I 1.25 H* Total Protein Albumin Triglycerides Lipase Random Vancomycin 08/20/19 08/20/19 08/20/19 10:48 12:33 12:48 WBC RBC Hgb Hct MCV MCH MCHC RDW Plt Count MPV Absolute Neuts (auto) Neutrophils % Neutrophils % (Manual) Band Neutrophils % Lymphocytes % Lymphocytes % (Manual) Monocytes % Monocytes % (Manual) Eosinophils % Eosinophils % (Manual) Basophils % Basophils % (Manual) Myelocytes % (Man) Promyelocytes % (Man) Blast Cells % (Manual) Nucleated RBC % Metamyelocytes Hypochromia Platelet Estimate Polychromasia Poikilocytosis Anisocytosis Microcytosis Macrocytosis Tear Drop Cells Ovalocytes PT with INR INR PTT (Actin FS) Fibrinogen Anticoagulation Therapy No Result Required. Puncture Site Arterial line ABG pH 7.03 L* ABG pCO2 at Pt Temp 81.0 H* ABG pO2 at Pt Temp < 49 L* ABG HCO3 20.2 L ABG O2 Sat (Measured) 58.9 L ABG O2 Content No Result Required. ABG Base Excess -11.6 L Moisés Test Not applicable O2 Delivery Device Mech vent Oxygen Flow Rate 100% Vent Mode A/c Vent Rate 30 Mechanical Rate Yes PEEP 20.0 Pressure Support Vent 300 Sodium 144 Potassium 5.3 H Chloride 114 H Carbon Dioxide 23 Anion Gap 7 L BUN 73.3 H Creatinine 6.1 H Est GFR (CKD-EPI)AfAm 13.85 Est GFR (CKD-EPI)NonAf 11.95 POC Glucometer 309 Random Glucose 306 H Lactic Acid Calcium 6.0 L* Phosphorus Magnesium Total Bilirubin AST ALT Alkaline Phosphatase Creatine Kinase Creatine Kinase Index CK-MB (CK-2) Troponin I 1.43 H* Total Protein Albumin Triglycerides Lipase Random Vancomycin 08/20/19 08/20/19 08/20/19 13:35 13:45 15:44 WBC RBC Hgb Hct MCV MCH MCHC RDW Plt Count MPV Absolute Neuts (auto) Neutrophils % Neutrophils % (Manual) Band Neutrophils % Lymphocytes % Lymphocytes % (Manual) Monocytes % Monocytes % (Manual) Eosinophils % Eosinophils % (Manual) Basophils % Basophils % (Manual) Myelocytes % (Man) Promyelocytes % (Man) Blast Cells % (Manual) Nucleated RBC % Metamyelocytes Hypochromia Platelet Estimate Polychromasia Poikilocytosis Anisocytosis Microcytosis Macrocytosis Tear Drop Cells Ovalocytes PT with INR INR PTT (Actin FS) Fibrinogen Anticoagulation Therapy No Result Required. Puncture Site Left radial ABG pH 7.05 L* ABG pCO2 at Pt Temp 70.7 H* ABG pO2 at Pt Temp No Result Required. ABG HCO3 18.6 L ABG O2 Sat (Measured) 70.2 L ABG O2 Content No Result Required. ABG Base Excess -13.4 L Moisés Test Not applicable O2 Delivery Device Mechanical vent Oxygen Flow Rate 100% Vent Mode No Result Required. Vent Rate 36 Mechanical Rate A/c PEEP 20.0 Pressure Support Vent 350 Sodium 143 Potassium 5.5 H Chloride 113 H Carbon Dioxide 23 Anion Gap 7 L BUN 73.0 H Creatinine 6.1 H Est GFR (CKD-EPI)AfAm 13.85 Est GFR (CKD-EPI)NonAf 11.95 POC Glucometer 294 Random Glucose 343 H Lactic Acid Calcium 5.9 L* Phosphorus Magnesium Total Bilirubin AST ALT Alkaline Phosphatase Creatine Kinase Creatine Kinase Index CK-MB (CK-2) Troponin I Total Protein Albumin Triglycerides Lipase Random Vancomycin 08/20/19 08/20/19 08/20/19 16:00 16:00 16:32 WBC RBC Hgb Hct MCV MCH MCHC RDW Plt Count MPV Absolute Neuts (auto) Neutrophils % Neutrophils % (Manual) Band Neutrophils % Lymphocytes % Lymphocytes % (Manual) Monocytes % Monocytes % (Manual) Eosinophils % Eosinophils % (Manual) Basophils % Basophils % (Manual) Myelocytes % (Man) Promyelocytes % (Man) Blast Cells % (Manual) Nucleated RBC % Metamyelocytes Hypochromia Platelet Estimate Polychromasia Poikilocytosis Anisocytosis Microcytosis Macrocytosis Tear Drop Cells Ovalocytes PT with INR INR PTT (Actin FS) Fibrinogen Anticoagulation Therapy Puncture Site ABG pH ABG pCO2 at Pt Temp ABG pO2 at Pt Temp ABG HCO3 ABG O2 Sat (Measured) ABG O2 Content ABG Base Excess Moisés Test O2 Delivery Device Oxygen Flow Rate Vent Mode Vent Rate Mechanical Rate PEEP Pressure Support Vent Sodium 141 Potassium 6.1 H* Chloride 112 H Carbon Dioxide 23 Anion Gap 6 L BUN 73.3 H Creatinine 6.2 H Est GFR (CKD-EPI)AfAm 13.58 Est GFR (CKD-EPI)NonAf 11.72 POC Glucometer 361 Random Glucose 372 H Lactic Acid 1.8 Calcium 6.1 L* Phosphorus Magnesium Total Bilirubin AST ALT Alkaline Phosphatase Creatine Kinase Creatine Kinase Index CK-MB (CK-2) Troponin I Total Protein Albumin Triglycerides Lipase Random Vancomycin 08/20/19 08/20/19 08/20/19 18:55 19:30 19:30 WBC 18.9 H RBC 3.53 L Hgb 10.9 L Hct 34.0 L MCV 96.2 H MCH 30.8 MCHC 32.0 RDW 16.0 H Plt Count 31 L* MPV 12.0 H Absolute Neuts (auto) 16.7 H Neutrophils % 88.7 H Neutrophils % (Manual) 62.4 D Band Neutrophils % 24.7 Lymphocytes % 5.3 L D Lymphocytes % (Manual) 5.9 L D Monocytes % 5.2 Monocytes % (Manual) 4 Eosinophils % 0.1 Eosinophils % (Manual) 0.0 D Basophils % 0.7 Basophils % (Manual) 0.0 Myelocytes % (Man) 3 H Promyelocytes % (Man) 0 Blast Cells % (Manual) 0 Nucleated RBC % 0 Metamyelocytes 0 D Hypochromia 0 Platelet Estimate Decreased Polychromasia Poikilocytosis 3+ Anisocytosis 1+ Microcytosis Macrocytosis 1+ Tear Drop Cells Ovalocytes PT with INR INR PTT (Actin FS) Fibrinogen Anticoagulation Therapy No Result Required. Puncture Site Arterial line ABG pH 7.11 L* ABG pCO2 at Pt Temp 64.3 H ABG pO2 at Pt Temp < 49 L* ABG HCO3 19.5 L ABG O2 Sat (Measured) 82.2 L ABG O2 Content No Result Required. ABG Base Excess -10.2 L Moisés Test No Result Required. O2 Delivery Device No Result Required. Oxygen Flow Rate Yes Vent Mode No Result Required. Vent Rate No Result Required. Mechanical Rate No Result Required. PEEP Pressure Support Vent No Result Required. Sodium 142 Potassium 5.8 H Chloride 113 H Carbon Dioxide 20 L Anion Gap 9 BUN 77.3 H Creatinine 6.2 H Est GFR (CKD-EPI)AfAm 13.58 Est GFR (CKD-EPI)NonAf 11.72 POC Glucometer Random Glucose 379 H Lactic Acid Calcium 6.0 L* Phosphorus Magnesium Total Bilirubin AST ALT Alkaline Phosphatase Creatine Kinase Creatine Kinase Index CK-MB (CK-2) Troponin I 1.46 H* Total Protein Albumin Triglycerides Lipase Random Vancomycin 08/20/19 08/21/19 08/21/19 22:28 00:05 00:23 WBC RBC Hgb Hct MCV MCH MCHC RDW Plt Count MPV Absolute Neuts (auto) Neutrophils % Neutrophils % (Manual) Band Neutrophils % Lymphocytes % Lymphocytes % (Manual) Monocytes % Monocytes % (Manual) Eosinophils % Eosinophils % (Manual) Basophils % Basophils % (Manual) Myelocytes % (Man) Promyelocytes % (Man) Blast Cells % (Manual) Nucleated RBC % Metamyelocytes Hypochromia Platelet Estimate Polychromasia Poikilocytosis Anisocytosis Microcytosis Macrocytosis Tear Drop Cells Ovalocytes PT with INR INR PTT (Actin FS) Fibrinogen Anticoagulation Therapy No Result Required. Puncture Site Arterial line ABG pH 7.10 L* ABG pCO2 at Pt Temp 57 H ABG pO2 at Pt Temp < 49 L* ABG HCO3 18.6 L ABG O2 Sat (Measured) 79 L ABG O2 Content No Result Required. ABG Base Excess -10.2 L Moisés Test No Result Required. O2 Delivery Device No Result Required. Oxygen Flow Rate No Result Required. Vent Mode No Result Required. Vent Rate No Result Required. Mechanical Rate No Result Required. PEEP Pressure Support Vent No Result Required. Sodium Potassium Chloride Carbon Dioxide Anion Gap BUN Creatinine Est GFR (CKD-EPI)AfAm Est GFR (CKD-EPI)NonAf POC Glucometer 351 316 Random Glucose Lactic Acid Calcium Phosphorus Magnesium Total Bilirubin AST ALT Alkaline Phosphatase Creatine Kinase Creatine Kinase Index CK-MB (CK-2) Troponin I Total Protein Albumin Triglycerides Lipase Random Vancomycin 08/21/19 08/21/19 08/21/19 01:30 01:30 01:40 WBC 19.3 H RBC 3.37 L Hgb 10.4 L Hct 32.1 L MCV 95.3 MCH 31.0 MCHC 32.5 RDW 16.1 H Plt Count 30 L* MPV 12.7 H Absolute Neuts (auto) 17.5 H Neutrophils % 90.3 H Neutrophils % (Manual) Band Neutrophils % Lymphocytes % 3.6 L D Lymphocytes % (Manual) Monocytes % 5.7 Monocytes % (Manual) Eosinophils % 0.0 D Eosinophils % (Manual) Basophils % 0.4 Basophils % (Manual) Myelocytes % (Man) Promyelocytes % (Man) Blast Cells % (Manual) Nucleated RBC % 0 Metamyelocytes Hypochromia Platelet Estimate Polychromasia Poikilocytosis Anisocytosis Microcytosis Macrocytosis Tear Drop Cells Ovalocytes PT with INR INR PTT (Actin FS) Fibrinogen Anticoagulation Therapy Puncture Site ABG pH ABG pCO2 at Pt Temp ABG pO2 at Pt Temp ABG HCO3 ABG O2 Sat (Measured) ABG O2 Content ABG Base Excess Moisés Test O2 Delivery Device Oxygen Flow Rate Vent Mode Vent Rate Mechanical Rate PEEP Pressure Support Vent Sodium 143 Potassium 5.3 H Chloride 115 H Carbon Dioxide 20 L Anion Gap 8 BUN 76.7 H Creatinine 6.4 H Est GFR (CKD-EPI)AfAm 13.07 Est GFR (CKD-EPI)NonAf 11.28 POC Glucometer 312 Random Glucose 330 H Lactic Acid Calcium 5.8 L* Phosphorus Magnesium Total Bilirubin AST ALT Alkaline Phosphatase Creatine Kinase Creatine Kinase Index CK-MB (CK-2) Troponin I 1.30 H* Total Protein Albumin Triglycerides Lipase Random Vancomycin HOSPITAL COURSE: Date of Admission:08/19/19 24 y/o/m with PMHx of down syndrome here for altered mental status found to have a blood sugar >1600 and be in DKA. Per patient's family they were unaware of the patient having diabetes. The patient was started on IVF and insulin drip in the ED with BMPs q2h and FSG q1h. In the ED the patient coded and was intubated and sedated. He was started on multiple pressors and transferred up to the ED. Though the patient's AG was closing and his hyperkalemia improved, CXR revealed he was in ARDS. The patient was satting in the 70s-80s consistently despite being placed on ARDS protocol on the vent with FiO2 100%. Serial ABGs revealed the patient continued to be acidodic. Labs also revealed the patient had LIYA and was in renal failure. An attempt was made to transfer the patient to [facility] for ecmo however due to the tenuous clinical status of the patient, safe transport was not feasible. The patient continued to decompensate. Overnight he was coded 3 times and eventually the patient succumbed to his illness. Pt was pronounced at 4.05 AM. The family was present at the bedside. Visit type Date of Discharge: 08/21/19 Minutes to complete discharge: 40 Discharge Summary Problems reviewed: Yes Reason For Visit: DIABETIC KETOACIDOSIS Condition: Critical - Instructions Disposition: - Home Medications Comprehensive Discharge Medication List: Ambulatory Orders NK [No Known Home Medication] 08/19/19 This patient is new to me today: Yes Date on this admission: 08/21/19 Emergency Visit: No Critical Care patient: Yes Total Critical Care Time (in minutes): 40 Critical Care Statement: The care of this patient involved high complexity decision making to prevent further life threatening deterioration of the patient 's condition and/or to evaluate & treat vital organ system(s) failure or risk of failure. - Discharge Referral Referred to [facility] No ATTENDING PHYSICIAN STATEMENT I saw and evaluated the patient. I reviewed the resident's note and discussed the case with the resident. I agree with the resident's findings and plan as documented. SUBJECTIVE: OBJECTIVE: ASSESSMENT AND PLAN:
[2019-08-21 10:17] LABS: ANISOCYTOSIS 0; MACROCYTOSIS 0; PLATELET ESTIMATE DECREASED
--- NOTE | 2019-08-21 12:16 | EKG ---
Test Reason : Blood Pressure : / mmHG Vent. Rate : 123 BPM Atrial Rate : 123 BPM P-R Int : 168 ms QRS Dur : 074 ms QT Int : 298 ms P-R-T Axes : 022 -01 007 degrees QTc Int : 426 ms SINUS TACHYCARDIA NONSPECIFIC T WAVE ABNORMALITY ABNORMAL ECG WHEN COMPARED WITH ECG OF 20-AUG-2019 09:25, NO SIGNIFICANT CHANGE WAS FOUND Confirmed by CRISELDA MEJIA MD ([id number]) on 08/21/2019 12:16:10 PM Referred By: Confirmed By:CRISELDA MEJIA MD
[2019-08-22 19:07] LABS: HEP B CORE AB, TOT Negative (Negative)
[2019-08-25 11:10] LABS: ANTIGLOMERULAR BASEMENT MEN.AB 2 units (0-20)
[2019-08-25 16:11] LABS: ATYPICAL pANCA <1:20 titer (Neg:<1:20); C-ANCA <1:20 titer (Neg:<1:20)
--- NOTE | 2019-09-05 13:34 | EKG ---
Test Reason : Blood Pressure : / mmHG Vent. Rate : 127 BPM Atrial Rate : 127 BPM P-R Int : 192 ms QRS Dur : 074 ms QT Int : 278 ms P-R-T Axes : -03 -08 031 degrees QTc Int : 404 ms SINUS TACHYCARDIA NONSPECIFIC T WAVE ABNORMALITY ABNORMAL ECG Confirmed by CHRIS CORREA MD ([id number]) on 09/05/2019 1:34:19 PM Referred By: Confirmed By:CHRIS CORREA MD
--- NOTE | 2019-09-05 13:35 | EKG ---
Test Reason : Blood Pressure : / mmHG Vent. Rate : 181 BPM Atrial Rate : 138 BPM P-R Int : 000 ms QRS Dur : 072 ms QT Int : 244 ms P-R-T Axes : 000 001 -50 degrees QTc Int : 423 ms ATRIAL FIBRILLATION WITH RAPID VENTRICULAR RESPONSE LOW VOLTAGE QRS NONSPECIFIC ST AND T WAVE ABNORMALITY ABNORMAL ECG WHEN COMPARED WITH ECG OF 20-AUG-2019 23:19, ATRIAL FIBRILLATION HAS REPLACED SINUS RHYTHM Confirmed by SUNNY MOFFETT, CHRIS ([id number]) on 09/05/2019 1:34:37 PM Referred By: Confirmed By:CHRIS CORREA MD
== END 2019-08-21 05:54 | disposition expired | DRG 420 ==
LOC: JER 02:39 → JERBED 05:54 → JICU 15:12
PROVIDERS: ADMIT Internal Medicine; ATTEND Internal Medicine
PROC: 5A1945Z Respiratory Ventilation, 24-96 Consecutive Hours (ICD-10-PCS; principal; 2019-08-19)
PROC: 0BH17EZ Insertion of Endotracheal Airway into Trachea, Via Natural or Artificial Opening (ICD-10-PCS; 2019-08-19)
PROC: 5A12012 Performance of Cardiac Output, Single, Manual (ICD-10-PCS; 2019-08-21)
DX: E10.10 Type 1 diabetes mellitus with ketoacidosis without coma (principal); D72.829 Elevated white blood cell count, unspecified; E87.5 Hyperkalemia; E87.2 Acidosis; K85.90 Acute pancreatitis without necrosis or infection, unspecified; E87.0 Hyperosmolality and hypernatremia; J80 Acute respiratory distress syndrome; R65.21 Severe sepsis with septic shock; G93.41 Metabolic encephalopathy; N17.9 Acute kidney failure, unspecified; J96.01 Acute respiratory failure with hypoxia; I46.9 Cardiac arrest, cause unspecified; R41.82 Altered mental status, unspecified; R00.0 Tachycardia, unspecified; Q90.9 Down syndrome, unspecified; I95.9 Hypotension, unspecified; D69.6 Thrombocytopenia, unspecified; E83.39 Other disorders of phosphorus metabolism; E86.0 Dehydration; I50.30 Unspecified diastolic (congestive) heart failure; M62.82 Rhabdomyolysis; E66.01 Morbid (severe) obesity due to excess calories; Z68.41 Body mass index [BMI] 40.0-44.9, adult; J98.11 Atelectasis; E87.1 Hypo-osmolality and hyponatremia
CPT/HCPCS: 36415; 36600; 71045-TC-FY; 76700-TC; 76775-TC; 76856-TC; 80048; 80053; 80307; 81003; 82010; 82375; 82542; 82550; 82553; 82565; 82803; 82962; 83036; 83050; 83516; 83520; 83605; 83690; 83735; 83930; 84100; 84155; 84165; 84300; 84478; 84484; 85025; 85027; 85384; 85610; 85730; 86022; 86038; 86225; 86256; 86704; 86706; 86707; 86708; 86709; 87040; 87070; 87077; 87086; 87205; 87340; 87522; 87899; 93005; 93010; 93306-TC; 93880-TC; 93970-TC; 93971; 94002; 94660; 99285-25; G0480; J0131; J1644; J7030